=== PATIENT | male | born 1935 | race Caucasian/White ===

== ENCOUNTER 2016-09-26 04:15 | Emergency (ER) | payer MEDICARE ==
[~2016-09-26 04:15] MED LIST: ACET325 PO; CARD4TAB2 PO; COMMODE 3:1; DOCU1CAP39 PO; LASI20TA PO; LISI20 PO; NIFE1TAB85 PO; POLY1.4%O EACH EYE; PRAV10 PO; PROS5TAB2 PO; PROT40TA PO; TUB TRANSFER BENCH; WARF5 PO; WHEELCHAIR RENTAL RA
[2016-09-26 04:19] VITALS: BP 116/70; PULSE 66; RESP 16; TEMP 97.6; O2SAT 92
[2016-09-26] MEDS ORDERED: LISI-515 PO (04:49)
[2016-09-26] MEDS ORDERED: VITA10007 PO (04:49)
[2016-09-26] MEDS ORDERED: DOXA4TAB3 PO (04:49)
[2016-09-26] MEDS ORDERED: FISH500C (04:49)
[2016-09-26] MEDS ORDERED: MULT-142 PO (04:49)
[2016-09-26] MEDS ORDERED: FURO1TAB62 PO (04:49)
[2016-09-26] MEDS ORDERED: NIFE30TA61 PO (04:49)
[2016-09-26] MEDS ORDERED: PRAV10TA PO (04:49)
[2016-09-26] MEDS ORDERED: GABA300C5 PO (04:49)
[2016-09-26] MEDS ORDERED: ROBA750T PO (04:49)
[2016-09-26] MEDS ORDERED: PROS5TAB PO (04:49)
[2016-09-26] MEDS ORDERED: COUM5TAB PO (04:49)
[2016-09-26] MEDS ORDERED: ONDANSETRON ODT 4 MG TAB PO ONE (05:15)
[2016-09-26] MEDS ORDERED: HYDROmorphone HCL PF 1 MG/ML VIAL SQ ONE (05:15)
--- NOTE | 2016-09-26 05:15 | PD ---
HPI Chief Complaint: Pain: Acute or Chronic Time Seen by Provider: 04:25 Travel History International Travel<30 days: No Contact w/Intl Traveler<30days: No History of Present Illness HPI 81 Y/O male with history of A.Fib, CVA, HTN comes to the ED due to left hip pain that radiates to the thigh. He states that the pain started right around dinner time. He describes it as a super achy and stabbing pain of 10/10 severity. He took tylenol, hydrocodone and robaxin which minimally alleviate the pain. Patient reports to have a CVA last year which lead to weakness of right leg and arm. He has been using a walker and normally leans on the left side to compensate for the right hemiparesis. He thinks that is the main reason for his left hip and leg pain. He denies any trauma, swelling, redness of the area, SOB, or fever. He notes walking quit a bit further than normal yesterday with use of a cane only and the assistance of his . No fall occurred. PFSH Past Medical History Atrial Fibrillation: Yes Autoimmune Disease: No Anxiety: No Depression: No Heart Rhythm Problems: Yes (A-fib) Cancer: No Cardiovascular Problems: Yes High Cholesterol: Yes Chest Pain: No Congestive Heart Failure: Yes Cerebrovascular Accident: Yes (HEMORRHAGIC CVA 10/2015) Endocrine: No Genitourinary: No Hypertension: Yes Immune Disorder: No Musculoskeletal: Yes (L4-L5, L5-S1 FUSION) Neurologic: No Psychiatric: No Reproductive: No Respiratory: No Past Surgical History Abdominal Surgery: No AICD: No Arteriovenous Shunt: No Cardiac Surgery: No Ear Surgery: No Endocrine Surgery: No Eye Surgery: Yes Genitourinary Surgery: No Gynecologic Surgery: No Insulin Pump: No Joint Replacement: No Oral Surgery: Yes (parotid gland surgery on right) Pacemaker: No Thoracic Surgery: No Other Surgery: Yes (left thumb years ago) Social History Alcohol Use: No Tobacco Use: No Substance Use: No Allergies-Medications (Allergen,Severity, Reaction): Coded Allergies: Tetracyclines (Verified Allergy, Severe, Erythema Multiforme, 09/26/16) Reported Meds & Prescriptions Reported Meds & Active Scripts Active Prednisone 20 Mg Tab 40 Mg PO DAILY 4 Days Percocet (Oxycodone-Acetaminophen) 5-325 mg Tab 2 Tab PO Q6H PRN Reported Gabapentin 300 Mg Cap 300 Mg PO HS Robaxin (Methocarbamol) 750 Mg Tab 1,500 Mg PO BID Fish Oil (Kenton-3 Fatty Acids) 500 Mg Cap Vitamin C (Ascorbic Acid) 1,000 Mg Tab 1,000 Mg PO BID Multi Vitamin and Mineral (Multiple Vitamins W/ Minerals) 1 Tab Tab PO DAILY Lasix (Furosemide) 20 Mg Tab 10 Mg PO PRN PRN Proscar (Finasteride) 5 Mg Tab 5 Mg PO DAILY Do not crush. Nifedipine ER 24 HR (Nifedipine) 30 Mg Tab 30 Mg PO DAILY Lisinopril 20 Mg Tab 20 Mg PO DAILY Pravastatin 10 Mg Tab 10 Mg PO HS Doxazosin (Doxazosin Mesylate) 4 Mg Tab 4 Mg PO BID Coumadin (Warfarin) 5 Mg Tab 5 Mg PO DAILY Review of Systems Except as stated in HPI: all other systems reviewed are Neg General / Constitutional: No: Fever HENT: No: Neck Pain Cardiovascular: No: Chest Pain or Discomfort, Edema Respiratory: No: Shortness of Breath, Night Sweats Gastrointestinal: No: Nausea, Vomiting, Abdominal Pain Musculoskeletal: Positive: Weakness (right leg and arm weakness secondary to CVA last year), Pain (left hip and thigh pain ) Skin: No Rash, No Change in Pigmentation, No Lesions Neurologic: Positive: Weakness (right hip and thigh weakness secondary to CVA ) , No: Syncope Physical Exam Narrative GENERAL: 81 y/o male, well-developed, well-nourished, appear stated age, very pleasant, lying in bed in no acute distress SKIN: Warm and dry. HEAD: Atraumatic. Normocephalic. EYES: Pupils equal and round. No scleral icterus. No injection or drainage. ENT: No nasal bleeding or discharge. Mucous membranes pink and moist. NECK: Trachea midline. No JVD. CARDIOVASCULAR: Regular rate and rhythm. RESPIRATORY: No accessory muscle use. Clear to auscultation. Breath sounds equal bilaterally. GASTROINTESTINAL: Abdomen soft, non-tender, nondistended. Hepatic and splenic margins not palpable. MUSCULOSKELETAL: Extremities without clubbing, cyanosis, or edema. No obvious deformities. Right leg weakness. On LLE: pain on internal and external rotation of lower extremity, tenderness to palpation overlying greater trochanter. 2+ DP bilaterally. No asymmetry/suggest DVT either side. NEUROLOGICAL: Awake and alert. No obvious cranial nerve deficits. right lower extremity weakness. Normal speech. PSYCHIATRIC: Appropriate mood and affect; insight and judgment normal. Data Data Last Documented VS Vital Signs Date Time Temp Pulse Resp B/P Pulse Ox O2 Delivery O2 Flow Rate FiO2 09/26/16 04:30 66 16 09/26/16 04:19 97.6 116/[address] Pelvis W/O Iv Contrast (09/26/16 ) Hydromorphone Pf Inj (Dilaudid Pf Inj) (09/26/16 05:15) Ondansetron Odt (Zofran Odt) (09/26/16 05:15) MDM Medical Decision Making Medical Screen Exam Complete: Yes Emergency Medical Condition: Yes Differential Diagnosis 1. left hip fracture 2. Osteoarthritis of left hip 3. Sciatica 4. Hematoma of left hip, less likely Narrative Course Last Impressions Pelvis CT 09/26/16 0000 Signed Impressions: Service Date/Time: Monday, September 26, 2016 05:27 - CONCLUSION: 1. Mild right and moderate to severe left hip osteoarthritis. 2. Left hip joint effusion, nonspecific but most likely reactive. 3. No fracture or subluxation demonstrated. 4. Severe disc space narrowing in the visualized lower lumbar spine at L4/L5. 5. Nonspecific enlargement of the prostate. There are scattered diverticula of the sigmoid colon. Jakob Berg MD Case d/w ortho. OK for dc home with steroids and pain control. Rest. Follow up as needed. Pt reassured. Return precautions discussed. Diagnosis Primary Impression: Effusion of left hip Referrals: Primary Care Physician 2 days Additional Instructions: You have a choice when it comes to health care, and we are glad that you chose [facility]. Hopefully, we have met your expectations on today's visit. You are welcome to return to [facility] at any time, as we are committed to meeting the health care needs of our community. Med/Other Pt SpecificInfo: Prescription(s) given Scripts Prednisone 20 Mg Tab40 Mg PO DAILY 4 Days Ref 0 Prov:Aravind Coreas MD 09/26/16 Oxycodone-Acetaminophen (Percocet)5-325 mg Tab2 Tab PO Q6H PRN (PAIN SCALE 6 TO 10) #30 TAB Ref 0 Prov:Aravind Coreas MD 09/26/16 Disposition: 01 DISCHARGE HOME Condition: Stable JossAravind C. MD Sep 26, 2016 05:15
--- NOTE | 2016-09-26 05:51 | RADRPT ---
EXAM DATE/TIME: 09/26/2016 05:27 [facility] COMPARISON: No previous studies available for comparison. INDICATIONS : Left hip pain, possible fracture. ORAL CONTRAST: No oral contrast ingested. RADIATION DOSE: 17.51 CTDIvol (mGy) MEDICAL HISTORY : Hypertension. SURGICAL HISTORY : lumbar surgery ENCOUNTER: Initial ACUITY: 1 day PAIN SCALE: 8/10 LOCATION: Left pelvis hip TECHNIQUE: Volumetric scanning of the pelvis was performed. Using automated exposure control and adjustment of the mA and/or kV according to patient size, radiation dose was kept as low as reasonably achievable t o obtain optimal diagnostic quality images. FINDINGS: The bony pelvis is intact and has normal morphology. There is bilateral hip osteoarthritis, mild on t he right and moderate to severe on the left. Subchondral sclerosis and small subchondral cysts are se en of the left acetabular roof. There is a left hip joint effusion and probably a least mild osteoart hritis. No fracture or subluxation demonstrated. CT appearance of the bilateral hamstring origins and ischial tuberosities within normal limits. No acute abnormality seen in the visualized pelvic cavity. There is atherosclerosis of the abdominal aorta and iliac arteries. Enlarged prostate with calcification noted. There are scattered diverticula of the sigmoid colon without acute inflammatory changes. The appendix is normal. There is no free fl uid. CONCLUSION: 1. Mild right and moderate to severe left hip osteoarthritis. 2. Left hip joint effusion, nonspecific but most likely reactive. 3. No fracture or subluxation demonstrated. 4. Severe disc space narrowing in the visualized lower lumbar spine at L4/L5. 5. Nonspecific enlargement of the prostate. There are scattered diverticula of the sigmoid colon. Jakob Berg MD on September 26, 2016 at 5:46 Board Certified Radiologist. This report was verified electronically.
[2016-09-26] MEDS ORDERED: PERC5TAB12 PO (06:44)
[2016-09-26] MEDS ORDERED: PRED20 PO (06:44)
[2017-01-15] MEDS ORDERED: MEDR4PAK PO (11:59)
== END 2016-09-26 07:11 | disposition home or self-care (01) ==
LOC: NEPE 04:15
DX: M25.452 Effusion, left hip (principal); I48.91 Unspecified atrial fibrillation; I10 Essential (primary) hypertension; I69.351 Hemiplegia and hemiparesis following cerebral infarction affecting right dominant side; E78.00 Pure hypercholesterolemia, unspecified; Z86.79 Personal history of other diseases of the circulatory system; Z87.39 Personal history of other diseases of the musculoskeletal system and connective tissue
CPT/HCPCS: 72192; 96372; 99283; J1170

== ENCOUNTER 2017-02-19 15:51 | Inpatient (IN) | payer MEDICARE ==
[~2017-02-19] VITALS: Ht 182.9 cm; Wt 88.7 kg
[~2017-02-19 15:51] MED LIST changes: -ACET325 PO; -CARD4TAB2 PO; -COMMODE 3:1; +COUM5TAB PO; -DOCU1CAP39 PO; +DOXA4TAB3 PO; +FISH500C PO; +FURO1TAB62 PO; -LASI20TA PO; +LISI-515 PO; -LISI20 PO; +MEDR4PAK PO; +MULT-142 PO; -NIFE1TAB85 PO; +NIFE30TA61 PO; -POLY1.4%O EACH EYE; -PRAV10 PO; +PROS5TAB PO; -PROS5TAB2 PO; -PROT40TA PO; -TUB TRANSFER BENCH; -WARF5 PO; -WHEELCHAIR RENTAL RA
[2017-03-04] MEDS ORDERED: PRAV10TA PO ×2 (16:25)
[2017-03-04] MEDS ORDERED: ROBA750T PO ×2 (16:25)
[2017-03-04] MEDS ORDERED: VITA250T3 PO ×2 (16:25)
[2017-03-04] MEDS ORDERED: GABA100C4 PO ×2 (16:25)
--- NOTE | 2017-03-07 12:26 | MH ---
cc: NIA GARDUNO MD DATE OF ADMISSION 03/13/2017 ADMITTING DIAGNOSIS Osteoarthritis of the left hip, pain left hip, gait disturbance. HISTORY The patient is an 81-year-old white male who has experienced pain of his left hip of at least two years duration. He has undergone previous evaluation in the [place], [place] area where he was residing at that time and reports that the initial evaluation was completed with emphasis being oriented towards the lumbosacral spine. The patient was advised to proceed with epidural steroid injections that he did receive, but during this interval, he continued to note soreness generalized about his left hip. 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 During the course of his rehabilitation, he became progressively more symptomatic with pain about his left hip for which a CT scan noted moderate to severe osteoarthritis with associated joint effusion. A follow-up MRI scan of the left hip reported moderate to severe superior articular cartilage thinning with moderate sized osteophytes and a large joint effusion with diffuse synovitis. The patient was later seen by the undersigned physician in January of this year and at that time he reported ongoing pain about his left hip associated with limited endurance regarding all weightbearing activities. He was continuing to utilize a walker as an ambulatory aid and taking OxyContin for pain management. A review of his x-ray studies revealed significant degenerative changes with pronounced narrowing of the joint space and deformation of the femoral head. Findings and treatment options were reviewed with the patient at that time. The pros and cons of continuing with conservative management versus operative intervention that would involve a total hip arthroplasty were outlined in detail. Emphasis was made regarding the fact that the decision to proceed with surgery would be left entirely to the patient's discretion. The patient readily admitted that he felt he had progressed to that point in time where he was ready to proceed accordingly and in compliance with his wishes, he was scheduled for admission at this time in order that left total hip replacement be completed. PAST MEDICAL HISTORY Hospitalizations and surgeries have included: 1. Surgical repair of a left thumb injury possibly a gamekeeper's type injury. 2. Right mehnaz-parotidectomy 3. Lumbar laminectomy and fusion L5-S1 4. Tonsillectomy 5. Bilateral cataract excision with intraocular lens implants 6. Colonoscopy 7. Cystoscopy 8. Management and rehabilitation for history of stroke. The patient's medical illnesses include: 1. Hypertension 2. Atrial fibrillation 3. Benign prostatic hypertrophy MEDICATIONS His current medications: 1. Doxazosin 4 mg in the a.m. 8 mg in the p.m. 2. Lisinopril 20 mg daily 3. Nifedipine 30 mg daily 4. Fish oil daily 5. Pravastatin 10 mg daily 6. Coumadin 5 mg at bedtime 7. Finasteride 5 mg at bedtime 8. Multivitamin daily 9. Vitamin C twice daily 10. Robaxin 750 mg p.r.n. 11. Gabapentin 100-300 mg p.r.n. ALLERGIES The patient indicates a drug allergy to TETRACYCLINE WHICH HAS BEEN ASSOCIATED WITH ERYTHEMA MULTIFORME. REVIEW OF SYSTEMS He does wear glasses. Denies headache, seizure or syncope. No sinus congestion or epistaxis. Diminished auditory acuity which hearing aids have been utilized. No tinnitus. No bleeding gums or dysphagia. Denies cough, shortness of breath, upper respiratory infection, pneumonia or tuberculosis. No angina. He is medically managed for atrial fibrillation and hypertension. Appetite is good. Bowel movements are regular. No hepatitis, gallbladder disease or ulcers. There is a positive history of hemorrhoids. No urinary tract infection. He has previous kidney stones with spontaneous passage. Benign prostatic hypertrophy. No fractures. No psychiatric illness. His remaining review of systems is unremarkable and noncontributory. FAMILY HISTORY 32 years, 69 years of age in good health. One son and two daughters indicated to be in good health. Family history is positive for diabetes, heart disease, lung disease and cancer of undetermined etiology. 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 He completed a medical school education. Denies active use of tobacco for at least 30 years, but has been a one-pack per day user for 30 years prior to that time. Ethanol consumption on a limited and social basis. PHYSICAL EXAMINATION Height 6 feet, weight 187 pounds. GENERAL: An alert, oriented and responsive 81-year-old white male who sits quietly upon examination table with no obvious distress. HEAD, EARS, EYES, NOSE AND THROAT: Pupils are equally round and reactive to light. Extraocular movements full. Sclerae clear. External nares clear. External auditory canals clear. Dental intact. Mucous membranes pink and moist. Pharynx clear. NECK: Supple, satisfactory range of motion with mild discomfort at the extremes of mobility indicated to be chronic in nature. Carotid pulse bilaterally. Trachea midline. Thyroid without enlargement. LUNGS: Clear to auscultation and percussion. No CVA tenderness. No discomfort throughout the dorsal lumbar spine. HEART: Regular irregular rhythm without murmur or gallop. ABDOMEN: Soft, nontender. Bowel sounds present. RECTAL: Per her primary care physician. EXTREMITIES: Left hip, there is no localizing tenderness to palpation. There is limited mobility of the hip joint being most pronounced with internal rotation and abduction maneuvering and pain at the extreme of motion. No sensation of crepitation or instability. Straight-leg raising negative 80 degrees. Jani sign is positive. Distal sensory grossly intact. Mild antalgic gait with walker support. An AFO about the right lower extremity secondary to a history of a right foot drop as related to the patient's history of stroke. NEUROLOGIC: Cranial nerves II-XII grossly intact. IMPRESSION Osteoarthritis left hip, pain left hip, gait disturbance. PLAN Left total hip arthroplasty. The nature of the planned surgical procedure, the potential complications and risks associated, the expectations of surgery and the consent form were thoroughly reviewed with the patient in the presence of his prior to admission to the hospital. Dr. Xiong has indicated his full understanding regarding all of the above and given consent to proceed with treatment as outlined. Medical evaluation and clearance for surgery will be completed by his primary care physician Dr. Jakob Guillermo. MD EBONI Perez/PACO /12:02 PM /12:16 PM
[2017-03-13] MEDS ORDERED: LACTATED RINGER'S 1000 ML INJ 1,000 ML ONE (06:15)
[2017-03-13] MEDS ORDERED: ceFAZolin 2 GM PREMIX 50 ML ONE (06:15)
[2017-03-13 06:23] VITALS: BP 135/78; PULSE 64; RESP 20; TEMP 98; O2SAT 96
[2017-03-13] MEDS ORDERED: INSULIN HUMAN REGULAR 1,000 UNITS/10 ML VIAL SQ PRN (06:30)
[2017-03-13] MEDS ORDERED: POVIDONE IODINE 5% (ANTISEPSIS KIT) 4 APPLICATIONS EACH NARE PRN (06:30)
[2017-03-13] MEDS ORDERED: LACTATED RINGER'S 1000 ML IV PRN (06:30)
[2017-03-13] MEDS ORDERED: ceFAZolin 2 GM PREMIX 50 ML IV SCH (06:30)
[2017-03-13] MEDS ORDERED: CHLORHEXIDINE GLUCONATE 2 % 1 PACK (2 CLOTHS) TOPICAL PRN (06:30)
[2017-03-13] MEDS ORDERED: SODIUM CHLORID 0.9% 500 ML IV PRN (06:30)
[2017-03-13] MEDS ORDERED: POVIDONE IODINE 7.5% SCRUB 118 ML BOTTLE TOPICAL SCH (06:30)
[2017-03-13] MEDS ORDERED: TRANEXAMIC ACID 1 GM PRIOR TO PROCEDURE IV SCH ×2 (06:30)
[2017-03-13] MEDS ORDERED: METOPROLOL TARTRATE 25 MG TAB PO PRN (06:30)
[2017-03-13] MEDS ORDERED: ACETAMINOPHEN 1000 MG/100 ML VIAL IV ONE (07:08)
[2017-03-13] MEDS ORDERED: ceFAZolin INJ 1,000 MG VIAL ONE ×2 (07:09→13:10)
[2017-03-13] MEDS ORDERED: VASOPRESSIN INJ 20 UNITS/ML VIAL ONE (07:51)
[2017-03-13] MEDS ORDERED: TRANEXAMIC ACID 1 GM POST-OP IV SCH ×2 (09:30)
[2017-03-13] MEDS ORDERED: DO NOT ADM ANY ANTICOAGULANT DRUGS PRN (10:06)
[2017-03-13] MEDS ORDERED: fentaNYL CITRATE 250 MCG/5 ML AMP ONE (10:14)
[2017-03-13] MEDS ORDERED: MIDAZOLAM HCL 2 MG/2 ML VIAL ONE (10:14)
--- NOTE | 2017-03-13 10:45 | MP ---
cc: NIA LONG DATE OF SURGERY: 03/13/2017 PREOPERATIVE DIAGNOSIS Osteoarthritis of the left hip, pain left hip and gait disturbance. POSTOPERATIVE DIAGNOSIS Osteoarthritis of the left hip, pain left hip and gait disturbance. PROCEDURE Left total hip arthroplasty. SURGEON Dr. Long. ANESTHESIA General endotracheal. INDICATIONS An 81-year-old white male with left hip pain of 2 years duration. He had undergone previous evaluation in the [place], [place] area where he was residing at that time and reports that his initial treatment was oriented towards his lumbosacral spine for which he was advised to proceed with epidural steroid injections that he did receive but during this interval he continued to note soreness about the left hip. 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 During the course of his rehabilitation he became progressively more symptomatic with pain about the left hip for which a CT scan noted a moderate to severe osteoarthritis associated with a joint effusion. A followup MRI scan of the left hip reported moderate to severe superior articular cartilage thinning with moderate sized osteophytes and a large joint effusion with diffuse synovitis. The patient was later seen by the undersigned physician in January of this year and at that time he reported ongoing pain about his left hip associated with limited endurance regarding all weightbearing activities. He was continuing to utilize a walker as an ambulatory aid and taking OxyContin for pain management. A review of his x-ray studies revealed significant degenerative changes with pronounced narrowing of the joint space and deformation of the femoral head. Findings and treatment options were reviewed. The pros and cons of continuing with conservative management versus operative intervention involving total hip arthroplasty were outlined in detail. Emphasis was made regarding the fact that the decision to proceed with surgery would be left entirely to the patient's discretion. The patient readily admitted that he felt he had progressed to that point in time when he was ready to proceed in this direction and in compliance with his wishes he was scheduled for admission at this time in order that left total hip replacement be completed. FORMAT Following induction of satisfactory general anesthesia by endotracheal intubation as completed per the Department of Anesthesia, the patient was positioned upon the operating table in a right lateral decubitus fashion. The left hip and lower extremity proper were isolated with a U drape, thereafter being prepped with Betadine solution and draped into a sterile field in the routine manner. Prior to initiation of the actual procedure the standard time-out protocol was completed. All parameters were appropriately addressed and confirmed by operating room personnel. A standard posterolateral approach to the hip was initiated through a sharp skin incision and developed to underlying subcutaneous tissue with hemostasis maintained by electrocautery. By deepening dissection the fascia overlying the gluteus musculature was exposed and sharply incised to the limits of the incision. The underlying gluteus fibers were divided with the Bovie on cutting current. Progressive dissection facilitated exposure of the short external rotator structures. The piriformis tendon was utilized in anatomical landmark and division of these structures was completed in a superior to inferior orientation and reflected medially exposing the posterior capsule. The sciatic nerve was protected. An L-shaped capsulotomy was accomplished which a posterior dislocation of the femoral head was completed. Examination revealed severe degenerative changes with significant erosion of articular cartilage, hypertrophic bony reaction around the margins of the femoral head and reactive synovium. The femoral template was positioned for alignment orientation. The neck was scored and thereafter divided with power saw. The amputated segment being passed to the back table as surgical specimen. Attention was initially directed to the proximal femur. Cancellous bone was harvested. The tapered reamer was inserted for alignment orientation. Sequential rasping and broaching was accomplished from 7-13 mm with the calcar shruthi being utilized at 13 mm stage. The 13 mm stem was determined to be a favorable fit. Trial component being removed, attention was redirected to the acetabulum. The labrum and reactive soft tissue were sharply excised. Progressive reaming was accomplished from 50-60 mm at 2 mm increments. The 60 mm trial shell was positioned and determined to be satisfactory. With all trial components being removed the wound was copiously irrigated with pulsating antibiotic solution, hemostasis maintained by electrocautery. Harvested cancellous bone was digitally impacted into the depths of the acetabulum and thereafter a 60 mm Continuum acetabular trabecular metal shell was firmly seated in approximately 45 degrees inclination to the horizontal and slight anteversion. A single 25 mm 6.5 cancellous screw was inserted superiorly to augment the fixation. The permanent high wall acetabular liner was affixed to the acetabular shell. Attention was redirected to the proximal femur. The 13 mm trial femoral broach was repositioned and a trial reduction followed utilizing a 36 mm modular head with both -6 and -3 mm neck length trialed, the -3 sizing was determined to be the more favorable fit. The hip was flexed to 90 degrees and internally rotated to 45 degrees with stability maintained. An open dislocation was completed, all trial femoral components removed, the canal thoroughly irrigated and dried and thereafter a 13 mm standard echo bimetric femoral stem was firmly seated to which a 36 mm ceramic head with -3 mm neck length adapter attached, open reduction completed and a repeat range of motion again noted stability as previously described. Final irrigation was accomplished with hemostasis maintained. The posterior capsule was repaired with 0 Vicryl suture. Pyriformis tendon and short external rotator structures were reapproximated in a similar manner. The fascia of the gluteus musculature was reapproximated with a running 0 Vicryl suture. Remaining portion of the wound was closed in layers in the routine manner. Skin margins being reapproximated with a running subcuticular 3-0 Vicryl suture over which Steri-Strips were applied. Xeroform gauze and a bulky dry sterile dressing were placed. The patient was repositioned into a supine orientation where an abduction splint was attached. Anesthesia was discontinued. He was thereafter transferred to a hospital bed and returned to the recovery room in satisfactory condition having tolerated his operative procedure well. Estimated blood loss was approximately 350 ccs as determined per anesthesia. Femoral implants were of the [employer] manufacture, acetabular implants of [employer] vehicle inspector. MD EBONI Perez/TAOL /10:05 AM /10:16 AM
[2017-03-13] MEDS ORDERED: *morphine SULFATE 8 MG/ML PERIprocedure ONLY ONE ×3 (10:46→11:18)
[2017-03-13] MEDS ORDERED: *HYDROmorphone PF 1 MG VIAL PERIprocedural Use ONLY ONE (11:45)
[2017-03-13] MEDS ORDERED: ACETAMINOPHEN 325 MG TAB PO PRN (12:45)
[2017-03-13] MEDS ORDERED: Post-op Orders (for Pharmacy) MISC XX ONE (12:45)
[2017-03-13] MEDS ORDERED: TRANEXAMIC ACID INJ 1,000 MG in SODIUM CHLORIDE 0.9% INJ 100 ML IV SCH (12:45)
[2017-03-13] MEDS ORDERED: SODIUM CHLORIDE 0.9% FLUSH 5 ML FLUSH IVF PRN (12:45)
[2017-03-13] MEDS ORDERED: ACETAMINOPHEN/HYDROcodone 325 MG/5 MG TAB PO PRN (12:45)
[2017-03-13] MEDS ORDERED: diphenhydrAMINE HCL 25 MG CAP PO PRN (12:45)
[2017-03-13] MEDS ORDERED: MISCELLANEOUS PHARMACY INFORMATION XX ONE (12:45)
[2017-03-13] MEDS ORDERED: ONDANSETRON HCL 4 MG/2 ML VIAL IVP PRN (12:45)
[2017-03-13] MEDS ORDERED: DOCUSATE SODIUM 100 MG CAP PO PRN (12:45)
[2017-03-13] MEDS ORDERED: NALOXONE HCL 0.4 MG/ML AMP IV PRN (12:45)
[2017-03-13] MEDS: DEXT 5%-NACL 0.45% 1000 ML INJ 1,000 ML IV SCH ×2 (13:00→21:00)
[2017-03-13] MEDS ORDERED: SODIUM CHLORIDE 0.9% INJ 100 ML ONE (13:10)
[2017-03-13] MEDS: MORPHINE SULFATE 30 MG/30 ML PCA IV SCH (13:22)
--- NOTE | 2017-03-13 13:37 | RADRPT ---
EXAM DATE/TIME: 03/13/2017 13:24 [facility] COMPARISON: No previous studies available for comparison. INDICATIONS : Post op, left hip replacement. MEDICAL HISTORY : None. SURGICAL HISTORY : None. ENCOUNTER: Initial ACUITY: 1 day PAIN SCORE: 0/10 LOCATION: Left hip FINDINGS: Examination of the hip demonstrates no evidence of fracture or dislocation. Left hip arthroplasty wit hout loosening or fracture. Postsurgical changes. CONCLUSION: Left hip arthroplasty. Ashish Drummond MD on March 13, 2017 at 13:35 Board Certified Radiologist. This report was verified electronically.
[2017-03-13] MEDS ORDERED: NEOSTIGMINE 3 MG/3 ML SYR IV ONE (13:48)
[2017-03-13] MEDS ORDERED: PROPOFOL 200 MG/20 ML AMP IV ONE (13:48)
[2017-03-13] MEDS ORDERED: ePHEDrine/NS 25 MG/5 ML SYR IV ONE (13:48)
[2017-03-13] MEDS ORDERED: LACTATED RINGER'S 1000 ML INJ 1,000 ML IV ONE (13:49)
[2017-03-13] MEDS ORDERED: PHENYLEPH/NS 1000 MCG/10 ML SYR IV ONE (13:49)
[2017-03-13] MEDS ORDERED: ONDANSETRON HCL 4 MG/2 ML VIAL IV PUSH ONE (13:49)
[2017-03-13 14:10] VITALS: BP 121/73; PULSE 79; RESP 17; TEMP 96.3; O2SAT 93
[2017-03-13] MEDS: PCA - TOTAL MG MORPHINE DELIVERED PER SHIFT SCH ×2 (15:47→22:00)
[2017-03-13] MEDS ORDERED: WARFARIN SOD 5 MG TAB PO SCH (16:00)
--- NOTE | 2017-03-13 16:03 | PD.CONS ---
HPI Service [facility] Hospitalists Consult Requested By Dr. Long Reason for Consult Medical management. Primary Care Physician Jakob Guillermo MD Diagnoses: History of Present Illness Written by Renea Zamora, acting as scribe for Dr. Machuca on 03/13/17 at 16:17. Mr. Xiong is an 81-year-old male patient with a known medical history of hemorrhagic thalamic CVA, hypertension and atrial fibrillation who underwent a left total hip arthroplasty by Dr. Long today 03/12/17. Hospitalist team has been consulted for medical management. Patient seen and examined in hospital room, at bedside. Patient supposedly had been experiencing left hip pain for several years undergoing steroid injections and outpatient PT. Despite these efforts patient complaint of continued pain. Per patient, he sustained a left thalamic hemorrhagic bleed in October 2015 leaving him with residual right sided weakness, gait disturbance, some speech deficits, intermittent impaired memory recall and right leg fatigue and deconditioning. Since that time patient received rehabilitation with continued pain in his left hip leading to a left total hip arthroplasty today. Patient denies any recent illness including fever , chills, cough, shortness of breath, abdominal pain, nausea, vomiting, diarrhea or dysuria. Review of Systems Musculoskeletal: COMPLAINS OF: Joint pain (hip pain) Except as stated in HPI: all other systems reviewed are Neg Past Family Social History Allergies: Coded Allergies: Tetracyclines (Verified Allergy, Severe, Erythema Multiforme, 03/04/17) Past Medical History History of CVA 2016 Hemorrhagic thalamic bleed Hypertension Atrial Fibrillation on Coumadin Benign prostatic hypertrophy Past Surgical History Left thumb surgery Lumbar laminectomy and L4/L5/S1 fusion Tonsillectomy Right mehnaz-parotidectomy Reported Medications Active Reported Gabapentin 100 Mg Cap 100 Mg PO HS PRN pt states he may take up to 300mg per night depending on pain Robaxin (Methocarbamol) 750 Mg Tab 750 Mg PO Q4H PRN Vitamin C (Ascorbic Acid) 250 Mg Tab 1,000 Mg PO BID Pravastatin 10 Mg Tab 10 Mg PO HS Fish Oil ([place]-3 Fatty Acids) 500 Mg Cap 3 Cap PO DAILY Multi Vitamin and Mineral (Multiple Vitamins W/ Minerals) 1 Tab Tab 1 Tab PO HS Proscar (Finasteride) 5 Mg Tab 5 Mg PO HS Do not crush. Nifedipine ER 24 HR (Nifedipine) 30 Mg Tab 30 Mg PO DAILY Lisinopril 20 Mg Tab 20 Mg PO DAILY Doxazosin (Doxazosin Mesylate) 4 Mg Tab 4 Mg PO BID Coumadin (Warfarin) 5 Mg Tab 5 Mg PO HS Active Ordered Medications Current Medications Medications (Trade) Dose Ordered Sig/Lesli Route Start Time Stop Time Status Last Admin Povidone Iodine 1 applic 1 applic ONCE TOPICAL 03/13/17 06:30 03/16/17 06:29 03/13/17 06:31 Tranexamic Acid 1000 mg/Sodium Chloride 110 ml @ 220 mls/hr ONCE IV 03/13/17 06:30 03/14/17 06:29 03/13/17 06:30 Tranexamic Acid 1000 mg/Sodium Chloride 110 ml @ 220 mls/hr ONCE IV 03/13/17 09:30 03/14/17 09:29 03/13/17 10:41 (D5W-1/2 NS 1000 ml Inj) 1,000 ml @ 125 mls/hr Q8H IV 03/13/17 13:00 03/13/17 13:00 (NS Flush) 2 ml UNSCH PRN IVF 03/13/17 12:45 IV Flush 2 ml 2 ml BID IVF 03/13/17 21:00 (Ancef Inj/NS Inj) 100 ml @ 200 mls/hr Q6H IV 03/13/17 13:00 03/14/17 01:29 03/13/17 13:00 (Acme 5-325 Mg) 1 tab Q4H PRN PO 03/13/17 12:45 (Acme 5-325 Mg) 2 tab Q4H PRN PO 03/13/17 12:45 (Tylenol) 650 mg Q6H PRN PO 03/13/17 12:45 (Zofran Inj) 4 mg Q6H PRN IVP 03/13/17 12:45 (Colace) 100 mg BID PRN PO 03/13/17 12:45 (Ambien) 5 mg HS PRN PO 03/13/17 21:00 (Narcan Inj) 0.4 mg UNSCH PRN IV 03/13/17 12:45 03/15/17 12:44 (Benadryl) 25 mg Q6H PRN PO 03/13/17 12:45 03/15/17 12:44 (Morphine 1 Mg/ ml MACHINE SOLE LEVELER) 30 mg UNSCH IV 03/13/17 12:45 03/15/17 12:44 03/13/17 13:22 MACHINE SOLE LEVELER Dosage Infused (Pha) 1 Q8HR .XX 03/13/17 14:00 03/15/17 13:59 03/13/17 15:47 (Coumadin) 5 mg DAILY@1600 PO 03/13/17 16:00 Future Hold Miscellaneous Information ALL NURSING DEPARTME... UNSCH PRN .XX 03/13/17 10:06 03/14/17 10:05 Family History Paternal medical history significant for acute UT, at the age of 55. Maternal medical history significant for lung cancer. Social History Patient is . Denies any current tobacco use, quit smoking in 1981. Admits to occasional alcohol use. Denies any illicit drug use. Physical Exam Vital Signs Vital Signs Date Time Temp Pulse Resp B/P Pulse Ox O2 Delivery O2 Flow Rate FiO2 03/13/17 15:47 9 03/13/17 14:10 96.3 79 17 121/73 93 03/13/17 13:25 75 16 121/69 99 Nasal Cannula 3 03/13/17 13:22 14 03/13/17 11:00 66 16 101/59 99 Nasal Cannula 3 03/13/17 10:45 58 16 95/53 98 Nasal Cannula 3 03/13/17 10:30 61 16 88/51 97 Nasal Cannula 3 03/13/17 10:15 75 16 84/53 95 Nasal Cannula 3 03/13/17 10:05 97.5 85 16 88/55 95 Nasal Cannula 3 03/13/17 06:23 98.0 64 20 135/78 96 Physical Exam GENERAL: Well-nourished, well-developed male patient, in no apparent distress. SKIN: No rashes, ecchymoses or lesions.Warm and dry. HEAD: Atraumatic. Normocephalic. No temporal or scalp tenderness. Pupils equal round and reactive. Extraocular motions intact. No scleral icterus. Nose without bleeding. Airway patent. NECK: Trachea midline. No JVD. Supple. CARDIOVASCULAR: Regular rate and rhythm. No murmur appreciated. RESPIRATORY: Clear to auscultation. Breath sounds equal bilaterally. No wheezes , rales, or rhonchi. GASTROINTESTINAL: Abdomen soft, non-tender, nondistended. No guarding. MUSCULOSKELETAL: Extremities without clubbing, cyanosis, or edema. No joint tenderness, effusion. Hip dressing clean, dry, intact. NEUROLOGICAL: Awake and alert. Cranial nerves II through XII intact. Motor and sensory grossly within normal limits. Five out of 5 muscle strength in all muscle groups. Normal speech. Laboratory Laboratory Tests Test 03/13/17 06:29 Blood Type A POSITIVE Antibody Screen NEGATIVE Imaging Last Impressions Hip X-Ray 03/13/17 1238 Signed Impressions: Service Date/Time: Monday, March 13, 2017 13:24 - CONCLUSION: Left hip arthroplasty. Ashish Drummond MD Assessment and Plan Assessment and Plan Mr. Xiong is an 81-year-old male patient with a known medical history of hemorrhagic thalamic CVA, hypertension and atrial fibrillation who underwent a left total hip arthroplasty by Dr. Long today 03/12/17. Hospitalist team has been consulted for medical management. Status post left total hip arthroplasty. - Post op day 0, 03/13/17 - Dressing changes per ortho recommendations. - Monitor for constipation. Colace 100 mg PO BID PRN. - Encourage PO intake. Continue regular diet. - Control pain. Morphine IV MACHINE SOLE LEVELER. Acme 5/325 mg PO q4h PRN per pain scale. - Monitor for nausea, Zofran PRN. Atrial fibrillation, chronic: Controlled at this time. Anticoagulation recommendations per ortho surgeon. Hypertension, chronic: Controlled at this time. Monitor BP. DVT prophylaxis: SCDs. Chemical prophylaxis per ortho recommendations. Thank you for this consultation. Will follow with you. This note was transcribed by scribe [Renea Zamora]. I, Dr. Aravind Machuca personally performed the history, physical exam, and medical decision making; and confirmed the accuracy of the information in the transcribed note. Authenticated by Dr. Aravind Machuca on 03/13/17 at 16:25. Renea Zamora Mar 13, 2017 16:03 Aravind Machuca MD Mar 13, 2017 16:25
[2017-03-13] MEDS ORDERED: GABAPENTIN 100 MG CAP PO PRN (16:30)
[2017-03-13 18:12] LABS: PROTHROMBIN TIME - PATIENT 11.3 SEC (9.8-11.6)
[2017-03-13] MEDS ORDERED: METHOCARBAMOL 500 MG TAB PO PRN (19:00)
[2017-03-13 20:30] VITALS: BP 130/75; PULSE 92; RESP 17; TEMP 98.7; O2SAT 95
[2017-03-13] MEDS: DOXAZOSIN MESYLATE 4 MG TAB PO SCH (20:50)
[2017-03-13] MEDS: MULTIVITAMINS/MINERALS THERAPEUTIC TAB PO SCH (20:51)
[2017-03-13] MEDS: FINASTERIDE 5 MG TAB PO SCH (20:51)
[2017-03-13] MEDS: PRAVASTATIN SOD 10 MG TAB PO SCH (20:51)
[2017-03-13] MEDS: ASCORBIC ACID 500 MG TAB PO SCH (20:52)
[2017-03-13] MEDS: SODIUM CHLORIDE 0.9% FLUSH 5 ML FLUSH IVF SCH (20:52)
[2017-03-13] MEDS ORDERED: ZOLPIDEM TARTRATE 5 MG TAB PO PRN (21:00)
[2017-03-14] VITALS (7 sets, daily range): BP systolic 100–125; BP diastolic 55–67; PULSE 68–93; RESP 17–18; TEMP 96.9–99.6; O2SAT 92–97
[2017-03-14] MEDS: DEXT 5%-NACL 0.45% 1000 ML INJ 1,000 ML IV SCH ×3 (05:58→20:44)
[2017-03-14] MEDS: PCA - TOTAL MG MORPHINE DELIVERED PER SHIFT SCH ×2 (06:00→13:21)
[2017-03-14] MEDS ORDERED: WARFARIN SOD 5 MG TAB PO ONE (06:00)
[2017-03-14 06:23] LABS: HEMATOCRIT 31.2 % (39.0-51.0); MEAN CELL VOLUME 87.5 FL (80.0-100.0); MEAN CORPUSCULAR HEMOGLOBIN 29.4 PG (27.0-34.0); MEAN CORPUSCULAR HGB CONC 33.6 % (32.0-36.0); PLATELET COUNT 116 TH/MM3 (150-450); RED BLOOD COUNT 3.57 MIL/MM3 (4.50-5.90); RED CELL DISTRIBUTION WIDTH 15.3 % (11.6-17.2); REVIEW FLAG FINAL; WHITE BLOOD COUNT 5.9 TH/MM3 (4.0-11.0)
[2017-03-14 06:42] LABS: INTERNATIONAL NORMALIZED RATIO 1.1 RATIO
[2017-03-14 06:50] LABS: BICARBONATE 25.2 MEQ/L (21.0-32.0); POTASSIUM 4.2 MEQ/L (3.5-5.1)
[2017-03-14] MEDS ORDERED: HYDR-3516 PO (06:50)
--- NOTE | 2017-03-14 06:52 | HHI.FF ---
Face to Face Verification Diagnosis: (1) Degenerative joint disease (DJD) of hip Physical Therapy Gait training Hip: Total hip, Protocol: Left, Abduction pillow while in bed, Progress to weight bearing Left LE Weight Bearing: WB as tolerated Left LE Range of Motion: Active ROM Nursing Dressing Changes: Daily dressing change I have seen patient Artie Xiong on 03/14/17. My clinical findings support the need for the requested home health care services because: Limited ability to care for self High risk of falls I certify that my clinical findings support that this patient is homebound because: Post-op weakness Unsteady gait/balance Unsafe to leave home unassisted Rakesh Long MD Mar 14, 2017 06:52
[2017-03-14] MEDS ORDERED: WALKER WHEELS/F1 MIS (06:54)
[2017-03-14] MEDS ORDERED: COMMODE 3-IN-11 MIS (06:54)
[2017-03-14] MEDS: DOXAZOSIN MESYLATE 4 MG TAB PO SCH ×2 (08:25→20:42)
[2017-03-14] MEDS: ASCORBIC ACID 500 MG TAB PO SCH ×2 (08:25→20:42)
[2017-03-14] MEDS: NIFEdipine 30 MG SUSTAINED RELEASE TAB PO SCH (08:26)
[2017-03-14] MEDS: LISINOPRIL 20 MG TAB PO SCH (08:26)
[2017-03-14] MEDS: SODIUM CHLORIDE 0.9% FLUSH 5 ML FLUSH IVF SCH ×2 (08:26→20:44)
[2017-03-14] MEDS ORDERED: WARFARIN SOD 5 MG TAB PO SCH ×2 (09:00→16:00)
[2017-03-14] MEDS ORDERED: OMEGA PO SCH (09:00)
[2017-03-14] MEDS: MORPHINE SULFATE 30 MG/30 ML PCA IV SCH (10:55)
--- NOTE | 2017-03-14 14:27 | HHI.PR ---
Subjective Remarks Follow up left total hip arthroplasty. Patient seen and examined, and OT in room. Patient awake and alert, oriented x person, place and time. Follows all commands. States pain is well controlled. Denies any new acute complaints overnight. Tolerating PO intake. No BM as of yet. Objective Vitals Vital Signs Date Time Temp Pulse Resp B/P Pulse Ox O2 Delivery O2 Flow Rate FiO2 03/14/17 12:00 96.9 74 18 100/61 96 03/14/17 10:11 92 03/14/17 07:48 98.9 68 18 110/55 92 03/14/17 04:21 21 03/14/17 04:06 99.0 75 17 111/56 96 03/14/17 00:24 97.1 86 17 106/60 97 03/13/17 20:30 98.7 92 17 130/75 95 03/13/17 15:47 9 I/O 03/13/17 03/13/17 03/13/17 03/14/17 03/14/17 03/14/17 07:00 15:00 23:00 07:00 15:00 23:00 Intake Total 1960 ml 1045 ml 1304 ml Output Total 570 ml 150 ml 375 ml Balance 1390 ml 895 ml 929 ml Intake Oral 110 ml 240 ml 120 ml IV Total 350 ml 805 ml 1184 ml Other 1500 ml Output Urine Total 220 ml 150 ml 375 ml Estimated Blood Loss 350 ml Other 0 ml Bladder Scan Volume Amount 104 ml # Voids 1 # Bowel Movements 0 0 Result Diagram: 03/14/17 0554 03/14/17 0554 Imaging Last Impressions Hip X-Ray 03/13/17 1238 Signed Impressions: Service Date/Time: Monday, March 13, 2017 13:24 - CONCLUSION: Left hip arthroplasty. Ashish Drummond MD Objective Remarks GENERAL: Well-nourished, well-developed male patient, in no apparent distress. SKIN: No rashes, ecchymoses or lesions.Warm and dry. HEAD: Atraumatic. Normocephalic. No temporal or scalp tenderness. Pupils equal round and reactive. Extraocular motions intact. No scleral icterus. Nose without bleeding. Airway patent. NECK: Trachea midline. No JVD. Supple. CARDIOVASCULAR: Regular rate and rhythm. No murmur appreciated. RESPIRATORY: Clear to auscultation. Breath sounds equal bilaterally. No wheezes , rales, or rhonchi. GASTROINTESTINAL: Abdomen soft, non-tender, nondistended. No guarding. MUSCULOSKELETAL: Extremities without clubbing, cyanosis, or edema. No joint tenderness, effusion. Hip dressing clean, dry, intact. NEUROLOGICAL: Awake and alert. Cranial nerves II through XII intact. Motor and sensory grossly within normal limits. Five out of 5 muscle strength in all muscle groups. Normal speech. A/P Assessment and Plan Mr. Xiong is an 81-year-old male patient with a known medical history of hemorrhagic thalamic CVA, hypertension and atrial fibrillation who underwent a left total hip arthroplasty by Dr. Long today 03/12/17. Hospitalist team has been consulted for medical management. Status post left total hip arthroplasty. - Post op day 1, 03/13/17 - Dressing changes per ortho recommendations. - No BM as of yet. Monitor for constipation. Colace 100 mg PO BID PRN. - Tolerating PO intake. Encourage PO intake. Continue regular diet. - Control pain. 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 Continue [place] 5/325 mg PO q4h PRN per pain scale. - Monitor for nausea, Zofran PRN. Atrial fibrillation, chronic: Controlled at this time. Coumadin. Hypertension, chronic: Controlled at this time. Monitor BP. Dyslipidemia, chronic: Continue home pravastatin 10 mg PO HS. DVT prophylaxis: SCDs. Continue Coumadin 5 mg PO. Renea Zamora Mar 14, 2017 14:27
[2017-03-14] MEDS: MULTIVITAMINS/MINERALS THERAPEUTIC TAB PO SCH (20:42)
[2017-03-14] MEDS: PRAVASTATIN SOD 10 MG TAB PO SCH (20:43)
[2017-03-14] MEDS: FINASTERIDE 5 MG TAB PO SCH (20:43)
[2017-03-14] MEDS: ACETAMINOPHEN/HYDROcodone 325 MG/5 MG TAB PO PRN (20:43)
[2017-03-15 00:20] VITALS: BP 104/61; PULSE 81; RESP 18; TEMP 97.9; O2SAT 96
[2017-03-15 04:45] VITALS: BP 106/61; PULSE 75; RESP 18; TEMP 97.1; O2SAT 97
[2017-03-15] MEDS: DEXT 5%-NACL 0.45% 1000 ML INJ 1,000 ML IV SCH (05:19)
[2017-03-15 07:02] LABS: HEMATOCRIT 28.5 % (39.0-51.0)
[2017-03-15 07:10] LABS: REVIEW FLAG FINAL
[2017-03-15 07:12] LABS: INTERNATIONAL NORMALIZED RATIO 1.3 RATIO
[2017-03-15 07:47] VITALS: BP 118/65; PULSE 84; RESP 18; TEMP 98.8; O2SAT 98
[2017-03-15 07:50] VITALS: BP 118/65; PULSE 84; RESP 18; TEMP 98.8; O2SAT 98
[2017-03-15] MEDS: SODIUM CHLORIDE 0.9% FLUSH 5 ML FLUSH IVF SCH (09:00)
[2017-03-15] MEDS: DOXAZOSIN MESYLATE 4 MG TAB PO SCH (09:00)
[2017-03-15] MEDS: LISINOPRIL 20 MG TAB PO SCH (09:00)
[2017-03-15] MEDS: NIFEdipine 30 MG SUSTAINED RELEASE TAB PO SCH (09:00)
[2017-03-15] MEDS: ACETAMINOPHEN/HYDROcodone 325 MG/5 MG TAB PO PRN (09:43)
[2017-03-15] MEDS: ASCORBIC ACID 500 MG TAB PO SCH (09:44)
== END 2017-03-15 11:38 | DRG 470 ==
LOC: HSDI 03-13 05:28 → N06A 03-13 14:02
PROVIDERS: ADMIT Orthopaedic Surgery; ATTEND Orthopaedic Surgery
PROC: 0SRB04A Replacement of Left Hip Joint with Ceramic on Polyethylene Synthetic Substitute, Uncemented, Open Approach (ICD-10-PCS; principal; 2017-03-13 07:18)
DX: M16.12 Unilateral primary osteoarthritis, left hip (principal); I48.2 Chronic atrial fibrillation; I69.198 Other sequelae of nontraumatic intracerebral hemorrhage; I10 Essential (primary) hypertension; M21.371 Foot drop, right foot; R26.9 Unspecified abnormalities of gait and mobility; Z98.1 Arthrodesis status; N40.0 Benign prostatic hyperplasia without lower urinary tract symptoms; Z79.01 Long term (current) use of anticoagulants; Z88.1 Allergy status to other antibiotic agents; E78.5 Hyperlipidemia, unspecified; Z87.891 Personal history of nicotine dependence
CPT/HCPCS: 73501; 80048; 85014; 85018; 85027; 85610; 86850; 86900; 86901; 88304; 88305; 88311; 94150; C1776; J0131; J0690; J1170; J2250; J2270; J2370; J2405; J2710; J3010; J7120

== ENCOUNTER → 2017-03-04 | Outpatient (CLI) | payer MEDICARE ==
[~2017-03-04] MED LIST changes: +COMMODE 3-IN-11 MIS; +GABA100C4 PO; +HYDR-3516 PO; +PRAV10TA PO; +ROBA750T PO; +VITA250T3 PO; +WALKER WHEELS/F1 MIS
[2017-03-04 12:51] LABS: AUTOMATED NEUTROPHIL # 2.5 TH/MM3 (1.8-7.7); BASOPHIL % 0.9 % (0.0-2.0); EOSINOPHIL # 0.1 TH/MM3 (0-0.4); EOSINOPHIL % 3.3 % (0.0-4.0); HEMATOCRIT 39.9 % (39.0-51.0); HEMO FLAGS DIFF FINAL; LYMPHOCYTE # 0.7 TH/MM3 (1.0-4.8); MEAN CELL VOLUME 85.5 FL (80.0-100.0); MEAN CORPUSCULAR HEMOGLOBIN 28.7 PG (27.0-34.0); MEAN CORPUSCULAR HGB CONC 33.5 % (32.0-36.0); MONO % 8.7 % (0.0-8.0); NEUT % 68.1 % (16.0-70.0); PLATELET COUNT 153 TH/MM3 (150-450); RED BLOOD COUNT 4.67 MIL/MM3 (4.50-5.90); RED CELL DISTRIBUTION WIDTH 15.2 % (11.6-17.2); WHITE BLOOD COUNT 3.6 TH/MM3 (4.0-11.0)
--- NOTE | 2017-03-04 12:53 | RADRPT ---
EXAM DATE/TIME: 03/04/2017 12:25 [facility] COMPARISON: CHEST SINGLE AP, November 24, 2015, 7:41. INDICATIONS : Evaluate for pneumonia, pneumothorax, or communicable disease. Preop chest for total left hip surgery on 03/13/17, no chest complaints at this time MEDICAL HISTORY : Hypertension. ICH, arthritis SURGICAL HISTORY : None. ENCOUNTER: Initial ACUITY: 1 day PAIN SCORE: 0/10 LOCATION: Bilateral chest FINDINGS: The lungs are clear without infiltrate, nodule, or mass. There is no appreciable pleural effusion fo r technique. Slight cardiomegaly has not changed. CONCLUSION: No acute cardiopulmonary disease. Araceli Paz MD on March 04, 2017 at 12:51 Board Certified Radiologist. This report was verified electronically.
[2017-03-04 12:55] LABS: INTERNATIONAL NORMALIZED RATIO 2.4 RATIO; PROTHROMBIN TIME - PATIENT 28.1 SEC (9.8-11.6)
[2017-03-04 13:16] LABS: BLOOD, URINE NEG (NEG); GLUCOSE,URINE NEG (NEG); KETONE, URINE NEG (NEG); NITRITE,URINE NEG (NEG); PH, URINE 6.5 (5.0-8.5); URINE COLOR YELLOW (YELLW/STRAW)
[2017-03-04 13:19] LABS: COMMENT (UR) CULT NOT INDICATED; CULTURE IF INDICATED CULT NOT INDICATED
[2017-03-04 13:23] LABS: POTASSIUM 3.9 MEQ/L (3.5-5.1)
--- NOTE | 2017-03-05 09:59 | EKG ---
Date Performed: 03/04/2017 Time Performed: 11:36:38 PTAGE: 81 years EKG: ATRIAL FIBRILLATION INCOMPLETE RIGHT BUNDLE BRANCH BLOCK NONSPECIFIC ST & T-WAVE ABNORMALIT Y ABNORMAL RHYTHM ECG Compared to prior tracing no significant change PREVIOUS TRACING : 11/22/15 DOCTOR: Олег Stevenson Interpretating Date/Time 03/05/2017 09:53:35
== END ==
LOC: CPRE 11:08
PROVIDERS: ATTEND Orthopaedic Surgery
DX: Z01.810 Encounter for preprocedural cardiovascular examination (principal); Z01.811 Encounter for preprocedural respiratory examination; Z01.812 Encounter for preprocedural laboratory examination; Z79.01 Long term (current) use of anticoagulants; M16.12 Unilateral primary osteoarthritis, left hip; R94.31 Abnormal electrocardiogram [ECG] [EKG]
CPT/HCPCS: 36415; 71020; 80048; 81001; 85025; 85610; 93005

== ENCOUNTER 2017-04-05 11:44 | Inpatient (IN) | payer MEDICARE ==
[~2017-04-05] VITALS: Ht 182.9 cm; Wt 92.0 kg
[~2017-04-05 11:44] MED LIST changes: -COMMODE 3-IN-11 MIS; +COUM3TAB PO; -COUM5TAB PO; -FISH500C PO; -FURO1TAB62 PO; -GABA100C4 PO; -MEDR4PAK PO; +NEUR300C PO; -WALKER WHEELS/F1 MIS
[2017-04-05 11:46] VITALS: BP 106/57; PULSE 85; RESP 12; TEMP 98.5; O2SAT 95
--- NOTE | 2017-04-05 11:55 | PD ---
Physical Exam Date Seen by Provider: Apr 05, 2017 Time Seen by Provider: 11:49 Narrative Pt is an 81 year old male presenting for evaluation of left hip pain. His PCP is out of town and he states "all he has left is us". He had surgery 3 weeks ago on this hip, pain is exacerbated since yesterday. Reports subjective fevers and chills yesterday. Discharged from [facility] last Saturday. No new injuries or trauma. Pt has been utilizing prescribed pain medication with no relief. states incision seems more inflamed and "hard". Home health RN also reports that the incision appears different. Pain is a 10/10 currently. Hx of afib, HTN , CVA, BPH. On Coumadin. Dr. Long was surgeon, [facility] is PCP. Data Data Last Documented VS Vital Signs Date Time Temp Pulse Resp B/P Pulse Ox O2 Delivery O2 Flow Rate FiO2 04/05/17 11:46 98.5 85 12 106/57 95 MDM Supervised Visit with ANA: Rachel Sánchez Apr 05, 2017 11:55
--- NOTE | 2017-04-05 12:25 | PD ---
HPI Chief Complaint: Pain: Acute or Chronic Time Seen by Provider: 12:25 Travel History International Travel<30 days: No Contact w/Intl Traveler<30days: No Traveled to known affect area: No History of Present Illness HPI 81-year-old male with history of A. fib, on Coumadin, hypertension, CAD, remote CVA, status post left hip replacement on March 13, presents to the emergency department for evaluation of severe left hip pain. Patient states since having the surgery by Dr. sullivan, things have been going well. He has been healing and rehabbing without any difficulty. Last evening after the visiting nurse came, patient began to have left hip pain with associated fever and chills. This progressed throughout the night the patient has been unable to ambulate with severe pain today in the left hip. He did take Percocet prior to arrival. Pain is a 10 out of 10, exacerbated with movement and touch. is concerned that the incision site appears "different." Patient denies any injury. No fall. No new exercises or activities. No other symptoms reported this time. He is currently not on his Coumadin after an INR of 4.0 earlier this week. PFSH Past Medical History Hx Anticoagulant Therapy: Yes (COUMADIN) Arthritis: No Asthma: No Atrial Fibrillation: Yes Autoimmune Disease: No Anxiety: No Depression: No Heart Rhythm Problems: Yes (A-fib) Cancer: No Cardiovascular Problems: Yes (A-FIB, HTN) High Cholesterol: Yes Chemotherapy: No Chest Pain: No Congestive Heart Failure: Yes COPD: No Cerebrovascular Accident: Yes (CVA 2016) Endocrine: No GERD: No Genitourinary: No Hepatitis: No Hiatal Hernia: No Hypertension: Yes Immune Disorder: No Kidney Stones: No Musculoskeletal: Yes (L4-L5, L5-S1 FUSION) Neurologic: Yes (2016 basal ganglia bleed, slight delayed speech r side weakness, unsteady) Psychiatric: No Reproductive: No Respiratory: No Migraines: No Radiation Therapy: No Renal Failure: No Seizures: No Sickle Cell Disease: No Sleep Apnea: No Ulcer: No Past Surgical History Abdominal Surgery: No AICD: No Arteriovenous Shunt: No Cardiac Surgery: No Ear Surgery: No Endocrine Surgery: No Eye Surgery: Yes (cataracts) Genitourinary Surgery: No Gynecologic Surgery: No Insulin Pump: No Joint Replacement: Yes (03/13/2017) Oral Surgery: Yes (parotid gland surgery on right) Pacemaker: No Thoracic Surgery: No Other Surgery: Yes (left thumb years ago) Social History Alcohol Use: No Tobacco Use: No Substance Use: No Allergies-Medications (Allergen,Severity, Reaction): Coded Allergies: Tetracyclines (Verified Allergy, Severe, Erythema Multiforme, 04/05/17) Reported Meds & Prescriptions Reported Meds & Active Scripts Active Hydrocodone-Acetaminophen 5-325 mg Tab 1 Tab PO Q12HR PRN Coumadin (Warfarin) 3 Mg Tab 3 Mg PO DAILY@16 30 Days Neurontin (Gabapentin) 300 Mg Cap 300 Mg PO HS 30 Days Robaxin (Methocarbamol) 750 Mg Tab 750 Mg PO Q4H PRN 30 Days Vitamin C (Ascorbic Acid) 250 Mg Tab 1,000 Mg PO BID 30 Days Pravastatin 10 Mg Tab 10 Mg PO HS Multi Vitamin and Mineral (Multiple Vitamins W/ Minerals) 1 Tab Tab 1 Tab PO HS 30 Days Proscar (Finasteride) 5 Mg Tab 5 Mg PO HS 30 Days Do not crush. Nifedipine ER 24 HR (Nifedipine) 30 Mg Tab 30 Mg PO DAILY Lisinopril 20 Mg Tab 20 Mg PO DAILY 1 Days Doxazosin (Doxazosin Mesylate) 4 Mg Tab 4 Mg PO BID 30 Days Review of Systems Except as stated in HPI: all other systems reviewed are Neg Physical Exam Narrative GENERAL: Well-nourished male patient, in no acute distress SKIN: Focused skin assessment warm/dry. Well approximated incision site on the posterior lateral left hip. Steri-Strips are in place. There is slight erythema surrounding the proximal aspect of the incision site. There is no drainage. The area is warm to touch without significant erythema. Mild induration. No fluctuation. HEAD: Atraumatic. Normocephalic. EYES: Pupils equal and round. No scleral icterus. No injection or drainage. ENT: No nasal bleeding or discharge. Mucous membranes pink and moist. NECK: Trachea midline. No JVD. CARDIOVASCULAR: Regular rate and irregular rhythm. RESPIRATORY: No accessory muscle use. Clear to auscultation. Breath sounds equal bilaterally. GASTROINTESTINAL: Abdomen soft, non-tender, nondistended. Hepatic and splenic margins not palpable. MUSCULOSKELETAL: No obvious deformities. No clubbing. No cyanosis. No edema. Distal pulses are palpable. Cap refills within normal limits. NEUROLOGICAL: Awake and alert. No obvious cranial nerve deficits. Motor grossly within normal limits. Normal speech. PSYCHIATRIC: Appropriate mood and affect; insight and judgment normal. Data Data Last Documented VS Vital Signs Date Time Temp Pulse Resp B/P Pulse Ox O2 Delivery O2 Flow Rate FiO2 04/05/17 11:46 98.5 85 12 106/57 95 Orders Complete Blood Count With Diff (04/05/17 11:55) Comprehensive Metabolic Panel (04/05/17 11:55) Prothrombin Time / Inr (Pt) (04/05/17 11:55) Act Partial Throm Time (Ptt) (04/05/17 11:55) Lactic Acid Sepsis Protocol (04/05/17 11:55) Blood Culture (04/05/17 11:55) Westergren Sedimentation Rate (04/05/17 11:55) C-Reactive Protein (Crp) (04/05/17 11:55) Hip, Uni(Ap&Lat) Wo Ap Pelvis (04/05/17 ) Morphine Inj (Morphine Inj) (04/05/17 13:00) Ondansetron Inj (Zofran Inj) (04/05/17 13:00) Urinalysis - C+S If Indicated (04/05/17 13:19) Invasive Rad Dept Consult (04/05/17 ) Fluid Culture And Gram Stain (04/05/17 13:49) Consult Orthopedic (04/05/17 ) Labs Laboratory Tests Test 04/05/17 12:50 White Blood Count 11.8 TH/MM3 Red Blood Count 4.08 MIL/MM3 Hemoglobin 11.7 GM/DL Hematocrit 35.0 % Mean Corpuscular Volume 85.7 FL Mean Corpuscular Hemoglobin 28.6 PG Mean Corpuscular Hemoglobin 33.4 % Concent Red Cell Distribution Width 15.1 % Platelet Count 342 TH/MM3 Mean Platelet Volume 7.9 FL Neutrophils (%) (Auto) 88.5 % Lymphocytes (%) (Auto) 3.4 % Monocytes (%) (Auto) 7.7 % Eosinophils (%) (Auto) 0.1 % Basophils (%) (Auto) 0.3 % Neutrophils # (Auto) 10.4 TH/MM3 Lymphocytes # (Auto) 0.4 TH/MM3 Monocytes # (Auto) 0.9 TH/MM3 Eosinophils # (Auto) 0.0 TH/MM3 Basophils # (Auto) 0.0 TH/MM3 CBC Comment DIFF FINAL Differential Comment Erythrocyte Sedimentation Rate 53 mm/hr Sodium Level 132 MEQ/L Potassium Level 3.8 MEQ/L Chloride Level 99 MEQ/L Carbon Dioxide Level 23.5 MEQ/L Anion Gap 10 MEQ/L Blood Urea Nitrogen 14 MG/DL Creatinine 0.96 MG/DL Estimat Glomerular Filtration 75 ML/MIN Rate Random Glucose 104 MG/DL Lactic Acid Level 2.2 mmol/L Calcium Level 9.1 MG/DL Total Bilirubin 1.4 MG/DL Aspartate Amino Transf 13 U/L (AST/SGOT) Alanine Aminotransferase 25 U/L (ALT/SGPT) Alkaline Phosphatase 113 U/L C-Reactive Protein 17.50 MG/DL Total Protein 7.7 GM/DL Albumin 3.5 GM/DL [facility] Medical Decision Making Medical Screen Exam Complete: Yes Emergency Medical Condition: Yes Medical Record Reviewed: Yes Differential Diagnosis Septic joint versus cellulitis versus postoperative infection versus UTI versus sepsis Narrative Course 81-year-old male presents to emergency department for evaluation. Patient appears without distress. His vital signs are stable. He is afebrile here in the emergency department however he did take Percocet prior to arrival. The incision site on the left hip appears without eye and a significant infection however movement of the left hip elicits significant pain for the patient. He is unwilling to ambulate at this time secondary to pain. Laboratory Tests Test 04/05/17 12:50 White Blood Count 11.8 TH/MM3 Red Blood Count 4.08 MIL/MM3 Hemoglobin 11.7 GM/DL Hematocrit 35.0 % Mean Corpuscular Volume 85.7 FL Mean Corpuscular Hemoglobin 28.6 PG Mean Corpuscular Hemoglobin 33.4 % Concent Red Cell Distribution Width 15.1 % Platelet Count 342 TH/MM3 Mean Platelet Volume 7.9 FL Neutrophils (%) (Auto) 88.5 % Lymphocytes (%) (Auto) 3.4 % Monocytes (%) (Auto) 7.7 % Eosinophils (%) (Auto) 0.1 % Basophils (%) (Auto) 0.3 % Neutrophils # (Auto) 10.4 TH/MM3 Lymphocytes # (Auto) 0.4 TH/MM3 Monocytes # (Auto) 0.9 TH/MM3 Eosinophils # (Auto) 0.0 TH/MM3 Basophils # (Auto) 0.0 TH/MM3 CBC Comment DIFF FINAL Differential Comment Erythrocyte Sedimentation Rate 53 mm/hr Sodium Level 132 MEQ/L Potassium Level 3.8 MEQ/L Chloride Level 99 MEQ/L Carbon Dioxide Level 23.5 MEQ/L Anion Gap 10 MEQ/L Blood Urea Nitrogen 14 MG/DL Creatinine 0.96 MG/DL Estimat Glomerular Filtration 75 ML/MIN Rate Random Glucose 104 MG/DL Lactic Acid Level 2.2 mmol/L Calcium Level 9.1 MG/DL Total Bilirubin 1.4 MG/DL Aspartate Amino Transf 13 U/L (AST/SGOT) Alanine Aminotransferase 25 U/L (ALT/SGPT) Alkaline Phosphatase 113 U/L C-Reactive Protein 17.50 MG/DL Total Protein 7.7 GM/DL Albumin 3.5 GM/DL CBC is a mild leukocytosis 11.8, neutrophilia of 10.4. Sedimentation rate is 53. CMP is with mild hyponatremia 132. CRP is 17.5. Lactic acid is 2.2. Urinalysis is not yet resulted. X-ray of the left hip is without acute abnormality. Total left hip replacement is noted. I discussed the patient with Dr. Nugent, orthopedic surgeon on- call for Dr. sullivan. He requests admission to medicine, aspiration and culture of the left hip by interventional radiology to be followed by broad- spectrum antibiotics. Consult has some place to him. A call has been placed to [facility] for admission. Diagnosis Primary Impression: Left hip pain Additional Impressions: Elevated sed rate Elevated C-reactive protein (CRP) Lactic acid acidosis S/P total hip arthroplasty Qualified Code: Z96.642 - Status post total replacement of left hip Admitting Information Admitting Physician Requests: Admit Condition: Stable Radha Jimenez Apr 05, 2017 12:25
[2017-04-05] MEDS ORDERED: MORPHINE SULFATE 4 MG/ML INJ IV PUSH ONE (13:00)
[2017-04-05] MEDS ORDERED: ONDANSETRON HCL 4 MG/2 ML VIAL IV PUSH ONE (13:00)
[2017-04-05 13:13] LABS: AUTOMATED NEUTROPHIL # 10.4 TH/MM3 (1.8-7.7); BASOPHIL % 0.3 % (0.0-2.0); EOSINOPHIL % 0.1 % (0.0-4.0); HEMO FLAGS DIFF FINAL; LYMPH % 3.4 % (9.0-44.0); LYMPHOCYTE # 0.4 TH/MM3 (1.0-4.8); MEAN CELL VOLUME 85.7 FL (80.0-100.0); MEAN CORPUSCULAR HEMOGLOBIN 28.6 PG (27.0-34.0); MEAN CORPUSCULAR HGB CONC 33.4 % (32.0-36.0); MONO % 7.7 % (0.0-8.0); NEUT % 88.5 % (16.0-70.0); PLATELET COUNT 342 TH/MM3 (150-450); RED BLOOD COUNT 4.08 MIL/MM3 (4.50-5.90); RED CELL DISTRIBUTION WIDTH 15.1 % (11.6-17.2); WHITE BLOOD COUNT 11.8 TH/MM3 (4.0-11.0)
[2017-04-05 13:33] LABS: ALT (GPT) 25 U/L (12-78); ANION GAP 10 MEQ/L (5-15); AST (GOT) 13 U/L (15-37); BICARBONATE 23.5 MEQ/L (21.0-32.0); BLOOD UREA NITROGEN 14 MG/DL (7-18); CHLORIDE 99 MEQ/L (98-107); GLOMERULAR FILTRATION RATE 75 ML/MIN (>89); POTASSIUM 3.8 MEQ/L (3.5-5.1); SODIUM (NA) 132 MEQ/L (136-145)
[2017-04-05 13:36] LABS: ALKALINE PHOSPHATASE 113 U/L (45-117); TOTAL BILIRUBIN ADULT 1.4 MG/DL (0.2-1.0)
--- NOTE | 2017-04-05 13:56 | RADRPT ---
EXAM DATE/TIME: 04/05/2017 13:01 [facility] COMPARISON: No previous studies available for comparison. INDICATIONS : Complains of left hip pain. MEDICAL HISTORY : None. SURGICAL HISTORY : Left total hip ENCOUNTER: Initial ACUITY: 1 day PAIN SCORE: 10/10 LOCATION: Left hip FINDINGS: A two view examination of the left hip was performed. A left hip prosthesis is noted in place. Acetab ular and femoral components are well-seated assess the realignment. There is no evidence of acute fra cture, soft tissue swelling or dislocation. CONCLUSION: 1. No acute process. 2. Status post total left hip replacement. Mane Moss MD on April 05, 2017 at 13:54 Board Certified Radiologist. This report was verified electronically.
[2017-04-05] MEDS ORDERED: ASCO1TAB14 PO (14:06)
[2017-04-05] MEDS ORDERED: COUM3TAB PO (14:06)
[2017-04-05 14:39] LABS: INTERNATIONAL NORMALIZED RATIO 4.3 RATIO; PROTHROMBIN TIME - PATIENT 50.6 SEC (9.8-11.6)
[2017-04-05] MEDS ORDERED: cloNIDine HCL 0.1 MG TAB PO PRN (14:45)
[2017-04-05] MEDS ORDERED: NALOXONE HCL 0.4 MG/ML AMP IV PRN (14:45)
[2017-04-05] MEDS ORDERED: ACETAMINOPHEN/HYDROcodone 325 MG/5 MG TAB PO PRN (14:45)
[2017-04-05] MEDS ORDERED: ENALAPRILAT 1.25 MG/ML VIAL IV PRN (14:45)
[2017-04-05] MEDS ORDERED: SODIUM CHLORIDE 0.9% FLUSH 10 ML FLUSH IV FLUSH PRN (14:45)
[2017-04-05] MEDS ORDERED: PIPERACIL-TAZO 3.375 GM PREMIX 50 ML IV SCH (14:45)
[2017-04-05] MEDS ORDERED: ONDANSETRON HCL 4 MG/2 ML VIAL IVP PRN (14:45)
[2017-04-05] MEDS ORDERED: VANCOMYCIN INJ 1,000 MG in SODIUM CHLOR 0.9% 250 ML INJ 250 ML IV SCH (14:45)
[2017-04-05] MEDS ORDERED: MAGNESIUM HYDROXIDE SUSP 30 ML CUP PO PRN (14:45)
[2017-04-05] MEDS ORDERED: LACTULOSE SYRUP 20 GM/30 ML CUP PO PRN (14:45)
[2017-04-05] MEDS ORDERED: Vancomycin Consult Pharmacy 1 EA OTHER SCH (14:45)
[2017-04-05] MEDS ORDERED: ACETAMINOPHEN 325 MG TAB PO PRN (14:45)
[2017-04-05] MEDS ORDERED: SENNOSIDES 8.6 MG TAB PO PRN (14:45)
[2017-04-05 14:46] LABS: APTT (PATIENT) 47.8 SEC (24.3-30.1)
[2017-04-05 15:04] LABS: LACTIC ACID GHOST NOT REPORTABLE
[2017-04-05 15:11] LABS: BLOOD, URINE NEG (NEG); COMMENT (UR) CULT NOT INDICATED; CULTURE IF INDICATED CULT NOT INDICATED; GLUCOSE,URINE NEG (NEG); KETONE, URINE NEG (NEG); MUCUS URINE MOD /lpf (OCC); NITRITE,URINE NEG (NEG); URINE COLOR DARK-YELLOW (YELLW/STRAW)
--- NOTE | 2017-04-05 15:50 | HHI.HP ---
HPI Service [facility] Primary Care Physician Jakob Guillermo MD Admission Diagnosis L hip pain; inability to ambulate; ?septic joint; lactic acidosis; Diagnoses: Chief Complaint: Left hip pain, fevers, chills Travel History International Travel<30 Days: No Contact w/Intl Traveler <30 Da: No Traveled to Known Affected Are: No History of Present Illness Written by Rex Gallo, acting as scribe for Dr. Aceves on 04/05/17 at 15: 29. Patient is an 81-year-old male with primary medical history of A. fib on Coumadin, hemorrhagic thalamic CVA, HTN who came into the hospital for evaluation of left hip secondary to increasing pain, associated with fevers and chills. Patient is status post left total hip arthroplasty per Dr. Long 03/12, went to rehabilitation and did well and was sent home with home health care. Patient was evaluated by home health nurse and recommended to go to the emergency department for further workup. Patient and states that he was doing well yesterday, however in the evening he had fevers, rigors, increasing pain unable to bear weight, states that the left hip incision site was hard, red , purple but without any drainage. Patient states that the pain has been manageable before, however this morning he is unable to bear weight, pain is on the left leg, nonradiating, sharp, unrelieved by current home pain regimen. On exam, patient states pain medication that was given to him in the ED is working well and now in no pain or discomfort. Denies SOB/ dyspnea. Denies chest pain , palpitations, headaches, dizziness. Denies fevers, chills, n/v/d. Denies dysuria. Review of Systems Except as stated in HPI: all other systems reviewed are Neg Past Family Social History Past Medical History History of CVA 2016 Hemorrhagic thalamic bleed Hypertension Atrial Fibrillation on Coumadin Benign prostatic hypertroph Past Surgical History Left thumb surgery Lumbar laminectomy and L4/L5/S1 fusion Tonsillectomy Right mehnaz-parotidectomy Allergies: Coded Allergies: Tetracyclines (Verified Allergy, Severe, Erythema Multiforme, 04/05/17) Family History Paternal medical history significant for acute [place], at the age of 55. Maternal medical history significant for lung cancer. Social History Patient is . Clarisa at the bedside. Occasional alcohol use Denies current tobacco use, quit smoking 1982 Denies illicit drug use Physical Exam Vital Signs Vital Signs Date Time Temp Pulse Resp B/P Pulse Ox O2 Delivery O2 Flow Rate FiO2 04/05/17 11:46 98.5 85 12 106/57 95 Physical Exam GENERAL: This is a well-nourished, well-developed patient, in no apparent distress. SKIN: Warm and dry. HEAD: Normocephalic. No temporal or scalp tenderness. EYES: Pupils equal round and reactive. Extraocular motions intact. No scleral icterus. No injection or drainage. ENT: Nose without bleeding, purulent drainage or septal hematoma. Throat without erythema, tonsillar hypertrophy or exudate. Uvula midline. Airway patent. NECK: Trachea midline. No JVD or lymphadenopathy. Supple, nontender, no meningeal signs. CARDIOVASCULAR: Irregular heart rate without murmurs, gallops, or rubs. RESPIRATORY: Clear to auscultation. Breath sounds equal bilaterally. No wheezes , rales, or rhonchi. GASTROINTESTINAL: Abdomen soft, non-tender, nondistended. Bowel sounds active 4. No guarding. MUSCULOSKELETAL: Extremities without clubbing, cyanosis. Left hip incision area upper portion with in duration, erythema, edema, left hip +1-2 edema. NEUROLOGICAL: Awake and alert. Oriented to time, place, person. Right-sided weakness. Motor and sensory grossly within normal limits. Normal speech. Laboratory Laboratory Tests Test 04/05/17 04/05/17 04/05/17 12:50 13:15 14:10 White Blood Count 11.8 Red Blood Count 4.08 Hemoglobin 11.7 Hematocrit 35.0 Mean Corpuscular Volume 85.7 Mean Corpuscular Hemoglobin 28.6 Mean Corpuscular Hemoglobin 33.4 Concent Red Cell Distribution Width 15.1 Platelet Count 342 Mean Platelet Volume 7.9 Neutrophils (%) (Auto) 88.5 Lymphocytes (%) (Auto) 3.4 Monocytes (%) (Auto) 7.7 Eosinophils (%) (Auto) 0.1 Basophils (%) (Auto) 0.3 Neutrophils # (Auto) 10.4 Lymphocytes # (Auto) 0.4 Monocytes # (Auto) 0.9 Eosinophils # (Auto) 0.0 Basophils # (Auto) 0.0 CBC Comment DIFF FINAL Differential Comment Erythrocyte Sedimentation Rate 53 Sodium Level 132 Potassium Level 3.8 Chloride Level 99 Carbon Dioxide Level 23.5 Anion Gap 10 Blood Urea Nitrogen 14 Creatinine 0.96 Estimat Glomerular Filtration 75 Rate Random Glucose 104 Lactic Acid Level 2.2 Calcium Level 9.1 Total Bilirubin 1.4 Aspartate Amino Transf 13 (AST/SGOT) Alanine Aminotransferase 25 (ALT/SGPT) Alkaline Phosphatase 113 C-Reactive Protein 17.50 Total Protein 7.7 Albumin 3.5 Urine Color DARK-YELLOW Urine Turbidity CLEAR Urine pH 6.0 Urine Specific [place] 1.028 Urine Protein 30 Urine Glucose (UA) NEG Urine Ketones NEG Urine Occult Blood NEG Urine Nitrite NEG Urine Bilirubin NEG Urine Urobilinogen 2.0 Urine Leukocyte Esterase NEG Urine WBC 2 Urine Mucus MOD Microscopic Urinalysis Comment CULT NOT INDICATED Prothrombin Time 50.6 Prothromb Time International 4.3 Ratio Activated Partial 47.8 Thromboplast Time Date/Time Procedure Status Source Growth 04/05/17 12:50 Aerobic Blood Culture Received Blood Peripheral Pending 04/05/17 12:50 Anaerobic Blood Culture Received Blood Peripheral Pending Result Diagram: 04/05/17 1250 04/05/17 1250 Imaging EKG tracing interpreted by me with atrial fibrillation, incomplete RBBB, T changes in the anterolateral leads. Compared to previous EKG, T changes in V4 to V5 are new Last Impressions Hip X-Ray 04/05/17 0000 Signed Impressions: Service Date/Time: Wednesday, April 05, 2017 13:01 - CONCLUSION: 1. No acute process. 2. Status post total left hip replacement. Mane Moss MD Assessment and Plan Problem List: (1) Left hip pain ICD Code: M25.552 Status: Acute (2) Elevated C-reactive protein (CRP) ICD Code: R79.82 Status: Acute (3) Elevated sed rate ICD Code: R70.0 Status: Acute (4) Lactic acid acidosis ICD Code: E87.2 Status: Acute (5) Anticoagulated on Coumadin ICD Code: Z51.81 Status: Chronic (6) Hypertension ICD Code: I10 Status: Chronic (7) Chronic atrial fibrillation ICD Code: I48.2 Status: Chronic (8) Right hemiparesis ICD Code: G81.91 Status: Acute (9) BPH (benign prostatic hyperplasia) ICD Code: N40.0 Status: Chronic (10) History of hemorrhagic stroke with residual hemiparesis ICD Code: I69.359 Status: Acute (11) S/P total hip arthroplasty ICD Code: Z96.649 Status: Acute Assessment and Plan Patient is an 81-year-old male with primary medical history of A. fib on Coumadin, hemorrhagic thalamic CVA, HTN who came into the hospital for evaluation of left hip secondary to increasing pain, associated with fevers and chills.\ Suspect severe sepsis Left hip incision/operative infection Suspect Septic Arthritis - Reports of increasing pain, unable to bear weight, fevers, rigors. - Mild leukocytosis 11.8, ESR 53, CRP 17.50, T bili 1.4, lactic acid 2.2 - suspicion of severe sepsis - Consulted orthopedic Dr. Nugent, recommends aspiration of the joint by IR, broad-spectrum antibiotics. - Will start patient on vancomycin IV 15 mg/kg, Zosyn IV 3.375 every 6 hours - after aspiration of the joint - INR 4.3 - dw IR, benefits of aspiration outweigh risk. Procedure with low bleeding risk. Pt agrees to proceed and willing to take risk. FFP if bleeding ensues - Place on telemetry secondary to atrial fibrillation - Pain management with morphine 2 mg IV every 3 hours when necessary for breakthrough pain, [place] 1 5/325mg or [place] 1 10/325mg based on pain scale - Blood cultures x2, follow-up results - UA negative - If aspiration cultures are positive, consider consulting infectious disease for guidance in antibiotic use and duration - Repeat labs in a.m. HTN HLD A. fib, coumadin - supratherapeutic INR - Hold Coumadin for now, supratherapeutic INR 4.3, repeat INR tomorrow. - Continue lisinopril 20 mg daily, Procardia 30 mg daily, Cardura 4 mg twice a day, pravastatin 10 mg daily at bedtime - Clonidine when necessary - Monitor BP trend BPH - Continue home medication Proscar 5 mg daily at bedtime DVT prop patient on Coumadin and supratherapeutic INR Code Status Full code Discussed Condition With Patient, Clarisa, nursing, ED attending This note was transcribed by mary Gallo. I, Dr. Brenden Aceves personally performed the history, physical exam, and medical decision making; and confirmed the accuracy of the information in the transcribed note. Authenticated by Dr. Brenden Aceves on 04/05/17 at 15:33 Physician Certification 2 Midnight Certification Type: Admission for Inpatient Services Order for Inpatient Services The services are ordered in accordance with Medicare regulations or non- Medicare payer requirements, as applicable. In the case of services not specified as inpatient-only, they are appropriately provided as inpatient services in accordance with the 2-midnight benchmark. Estimated LOS (days): 2 days is the estimated time the patient will need to remain in the hospital, assuming treatment plan goals are met and no additional complications. Post-Hospital Plan: Not yet determined Problem Qualifiers (1) S/P total hip arthroplasty: Qualified Code: Z96.642 - Status post total replacement of left hip Rex Hays Apr 05, 2017 15:50 Brenden Aceves MD Apr 05, 2017 16:13
--- NOTE | 2017-04-05 16:55 | PD.CONS ---
cc: Rakesh Long MD; Fercho Crain MD; Fletcher Nugent MD (Charles) HPI Service [facility] Consult Requested By Reason for Consult Left hip pain Primary Care Physician Jakob Guillermo MD Admission Diagnosis L hip pain; inability to ambulate; ?septic joint; lactic acidosis; Diagnoses: (1) Left hip pain (2) Elevated C-reactive protein (CRP) (3) Elevated sed rate (4) Lactic acid acidosis (5) Anticoagulated on Coumadin (6) Hypertension (7) Chronic atrial fibrillation (8) Right hemiparesis (9) BPH (benign prostatic hyperplasia) (10) History of hemorrhagic stroke with residual hemiparesis (11) S/P total hip arthroplasty Chief Complaint: Left hip pain History of Present Illness 81 y/venus had left total hip by Tyson Long MD on 03/13/2017. He was doing well until today when he began having increased pain. Past Family Social History Past Medical History History of CVA 2016 Hemorrhagic thalamic bleed Hypertension Atrial Fibrillation on Coumadin Benign prostatic hypertroph Past Surgical History Left thumb surgery Lumbar laminectomy and L4/L5/S1 fusion Tonsillectomy Right mehnaz-parotidectomy Allergies: Coded Allergies: Tetracyclines (Verified Allergy, Severe, Erythema Multiforme, 04/05/17) Active Ordered Medications Current Medications Medications (Trade) Dose Ordered Sig/Lesli Route Start Time Stop Time Status Last Admin (Cardura) 4 mg BID PO 04/05/17 21:00 (Proscar) 5 mg HS PO 04/05/17 21:00 (Neurontin) 300 mg HS PO 04/05/17 21:00 (Prinivil) 20 mg DAILY PO 04/06/17 09:00 (Procardia Xl) 30 mg DAILY PO 04/06/17 09:00 (Pravachol) 10 mg HS PO 04/05/17 21:00 (Vitamin C) 1,000 mg BID PO 04/05/17 21:00 (Robaxin) 750 mg Q4H PRN PO 04/05/17 15:30 Multivitamins/ Minerals Therapeutic 1 tab 1 tab HS PO 04/05/17 21:00 (Coumadin Consult Pharmacy) 0 ml @ 0 mls/hr UNSCH OTHER 04/05/17 14:30 (Vasotec Inj) 1.25 mg Q6H PRN IV 04/05/17 14:45 Clonidine 0.1 mg 0.1 mg Q6H PRN PO 04/05/17 14:45 (NS 1000 ml Inj) 1,000 ml @ 100 mls/hr Q10H IV 04/05/17 15:00 (NS Flush) 2 ml UNSCH PRN IV FLUSH 04/05/17 14:45 (NS Flush) 2 ml BID IV FLUSH 04/05/17 21:00 (Tylenol) 650 mg Q4H PRN PO 04/05/17 14:45 (Zofran Inj) 4 mg Q6H PRN IVP 04/05/17 14:45 (Tylenol) 650 mg Q6H PRN PO 04/05/17 14:45 ([place] 5-325 Mg) 1 tab Q4H PRN PO 04/05/17 14:45 ([place] 10-325 Mg) 1 tab Q4H PRN PO 04/05/17 14:45 (Morphine Inj) 2 mg Q3H PRN IV 04/05/17 14:45 (Narcan Inj) 0.4 mg UNSCH PRN IV 04/05/17 14:45 (Addis-Colace) 1 tab BID PO 04/05/17 21:00 (Milk Of Magnesia Liq) 30 ml Q12H PRN PO 04/05/17 14:45 (Senokot) 17.2 mg Q12H PRN PO 04/05/17 14:45 Lactulose 30 ml 30 ml DAILY PRN PO 04/05/17 14:45 Pharmacy Profile Note 0 ml @ 0 mls/hr UNSCH OTHER 04/05/17 14:45 (Vancomycin Inj/ NS 250 ml Inj) 262.5 ml @ 250 mls/hr Q24H IV 04/05/17 18:00 Miscellaneous Information SPECIFIC LAB TO BE GEOVANNA... ONCE ONCE .XX 04/08/17 17:45 04/08/17 17:46 Reported Meds & Active Scripts Active Hydrocodone-Acetaminophen 5-325 mg Tab 1 Tab PO Q12HR PRN Neurontin (Gabapentin) 300 Mg Cap 300 Mg PO HS 30 Days Robaxin (Methocarbamol) 750 Mg Tab 750 Mg PO Q4H PRN 30 Days Pravastatin 10 Mg Tab 10 Mg PO HS Multi Vitamin and Mineral (Multiple Vitamins W/ Minerals) 1 Tab Tab 1 Tab PO HS 30 Days Proscar (Finasteride) 5 Mg Tab 5 Mg PO HS 30 Days Do not crush. Nifedipine ER 24 HR (Nifedipine) 30 Mg Tab 30 Mg PO DAILY Lisinopril 20 Mg Tab 20 Mg PO DAILY 1 Days Doxazosin (Doxazosin Mesylate) 4 Mg Tab 4 Mg PO BID 30 Days Reported C-1000 (Ascorbic Acid) 1,000 Mg Tablet 1,000 Mg PO BID Coumadin (Warfarin) 3 Mg Tab 3 Mg PO HS Family History Paternal medical history significant for acute [place], at the age of 55. Maternal medical history significant for lung cancer. Social History Patient is . Clarisa at the bedside. Occasional alcohol use Denies current tobacco use, quit smoking 1982 Denies illicit drug use Physical Exam Vital Signs Vital Signs Date Time Temp Pulse Resp B/P Pulse Ox O2 Delivery O2 Flow Rate FiO2 04/05/17 11:46 98.5 85 12 106/57 95 Physical Exam He is resting comfortably, supine in the bed in the ED. The left hip has a healing wound with almost no erythema. There is not much tenderness at this time. There is no drainage. Laboratory Laboratory Tests Test 04/05/17 04/05/17 04/05/17 04/05/17 12:50 13:15 14:10 15:37 White Blood Count 11.8 Red Blood Count 4.08 Hemoglobin 11.7 Hematocrit 35.0 Mean Corpuscular Volume 85.7 Mean Corpuscular Hemoglobin 28.6 Mean Corpuscular Hemoglobin 33.4 Concent Red Cell Distribution Width 15.1 Platelet Count 342 Mean Platelet Volume 7.9 Neutrophils (%) (Auto) 88.5 Lymphocytes (%) (Auto) 3.4 Monocytes (%) (Auto) 7.7 Eosinophils (%) (Auto) 0.1 Basophils (%) (Auto) 0.3 Neutrophils # (Auto) 10.4 Lymphocytes # (Auto) 0.4 Monocytes # (Auto) 0.9 Eosinophils # (Auto) 0.0 Basophils # (Auto) 0.0 CBC Comment DIFF FINAL Differential Comment Erythrocyte Sedimentation Rate 53 Sodium Level 132 Potassium Level 3.8 Chloride Level 99 Carbon Dioxide Level 23.5 Anion Gap 10 Blood Urea Nitrogen 14 Creatinine 0.96 Estimat Glomerular Filtration 75 Rate Random Glucose 104 Lactic Acid Level 2.2 Calcium Level 9.1 Total Bilirubin 1.4 Aspartate Amino Transf 13 (AST/SGOT) Alanine Aminotransferase 25 (ALT/SGPT) Alkaline Phosphatase 113 C-Reactive Protein 17.50 Total Protein 7.7 Albumin 3.5 Urine Color DARK-YELLOW Urine Turbidity CLEAR Urine pH 6.0 Urine Specific [place] 1.028 Urine Protein 30 Urine Glucose (UA) NEG Urine Ketones NEG Urine Occult Blood NEG Urine Nitrite NEG Urine Bilirubin NEG Urine Urobilinogen 2.0 Urine Leukocyte Esterase NEG Urine WBC 2 Urine Mucus MOD Microscopic Urinalysis Comment CULT NOT INDICATED Prothrombin Time 50.6 Prothromb Time International 4.3 Ratio Activated Partial 47.8 Thromboplast Time Blood Bank Comment Date/Time Procedure Status Source Growth 04/05/17 12:50 Aerobic Blood Culture Received Blood Peripheral Pending 04/05/17 12:50 Anaerobic Blood Culture Received Blood Peripheral Pending Result Diagram: 04/05/17 1250 04/05/17 1250 Imaging Last 72 hours Impressions Hip X-Ray 04/05/17 0000 Signed Impressions: Service Date/Time: Wednesday, April 05, 2017 13:01 - CONCLUSION: 1. No acute process. 2. Status post total left hip replacement. Mane Moss MD Assessment & Plan Ortho Post Op Day #: 22 Problem List: (1) S/P total hip arthroplasty Assessment and Plan He is seen for Dr. Long. I have recommended that IR do a hip arthrocentesis prior to initiating antiobiotics. Josemanuel Crain MD is covering the weekend. Dr. Long returns Saturday. The elevated INR will probably delay any surgery. Fletcher Nugent MD ([place]) Apr 05, 2017 16:55
--- NOTE | 2017-04-05 18:32 | RADRPT ---
EXAM DATE/TIME: 04/05/2017 17:50 [facility] COMPARISON: No previous studies available for comparison. INDICATIONS : Patient with a history of left hip pain. MEDICAL HISTORY : HTN Dyslipidemia PAD Heart Failure Afib SURGICAL HISTORY : Left hip replacement ENCOUNTER: Initial ACUITY: 1 week PAIN SCORE: 10/10 LOCATION: Left hip FLUORO TIME: 3.4 minutes IMAGE SERIES: 0 CONTRAST: 2 cc Omnipaque 350 DEVICE(S): 22 gauge needle was placed into the left hip joint. FLUID: Total volume of1 cc of clear red fluid was removed. Fluid specimen was submitted to the lab for evaluation. PROCEDURE : 1. Fluoroscopically guided left hip aspiration. The risks, benefits and alternatives to the procedure were explained and verbal and written consent w as obtained. The site was prepped in sterile fashion. Full sterile technique was used, including ca p, mask, sterile gloves and gown and a large sterile sheet. Hand hygiene and 2% chlorhexidine and/or betadine/alcohol prep was utilized per protocol for cutaneous antisepsis. The skin and subcutaneous tissues were infiltrated with local anesthetic solution. Under direct fluoroscopic guidance, a 22 gauge spinal needle was introduced to the left hip. Needle w as positioned against the head component of the hip prosthesis. There wasfluid to be aspirated at thi s location. The needle was removed manipulated along the neck portion of the femoral component and ag ain no fluid was located. Finally, Omnipaque contrast and normal saline was injected. This did not de monstrate any focal pockets of fluid within the joint capsule. A small volume of the injected fluid w as reaspirated and sent for culture. The patient tolerated the procedure well and there were no complications. CONCLUSION: Uncomplicated aspiration as above. There was no hip joint effusion identified. Jakob Agarwal MD on April 05, 2017 at 18:29 Board Certified Radiologist. This report was verified electronically.
[2017-04-05] MEDS: SODIUM CHLOR 0.9% 1000 ML INJ 1,000 ML IV SCH (18:43)
[2017-04-05] MEDS: VANCOMYCIN INJ 1,250 MG in SODIUM CHLOR 0.9% 250 ML INJ 250 ML IV SCH (18:43)
[2017-04-05] MEDS: ACETAMINOPHEN/HYDROcodone 325 MG/10 MG TAB PO PRN ×2 (18:50→23:16)
[2017-04-05 20:00] VITALS: BP 130/75; PULSE 93; RESP 18; TEMP 99.3; O2SAT 94
[2017-04-05] MEDS: SODIUM CHLORIDE 0.9% FLUSH 10 ML FLUSH IV FLUSH SCH (20:11)
[2017-04-05] MEDS: GABAPENTIN 300 MG CAP PO SCH (20:11)
[2017-04-05] MEDS: DOXAZOSIN MESYLATE 4 MG TAB PO SCH (20:11)
[2017-04-05] MEDS: PRAVASTATIN SOD 10 MG TAB PO SCH (20:12)
[2017-04-05] MEDS: DOCUSATE SODIUM 50 MG/SENNA 8.6 MG TAB PO SCH (20:12)
[2017-04-05] MEDS: FINASTERIDE 5 MG TAB PO SCH (20:12)
[2017-04-05] MEDS: MULTIVITAMINS/MINERALS THERAPEUTIC TAB PO SCH (20:12)
[2017-04-05] MEDS: ASCORBIC ACID 500 MG TAB PO SCH (20:13)
[2017-04-05] MEDS: MORPHINE SULFATE 4 MG/ML INJ IV PRN (20:14)
[2017-04-05] MEDS: PIPERACIL-TAZO 3.375 GM PREMIX 50 ML IV SCH (23:23)
[2017-04-06] VITALS (10 sets, daily range): BP systolic 94–156; BP diastolic 53–78; PULSE 68–116; RESP 16–18; TEMP 97.7–102.3; O2SAT 93–98
[2017-04-06] MEDS: SODIUM CHLOR 0.9% 1000 ML INJ 1,000 ML IV SCH (02:12)
[2017-04-06] MEDS: PIPERACIL-TAZO 3.375 GM PREMIX 50 ML IV SCH ×3 (04:19→16:12)
[2017-04-06] MEDS: ACETAMINOPHEN/HYDROcodone 325 MG/10 MG TAB PO PRN ×3 (04:22→14:10)
[2017-04-06] MEDS: MORPHINE SULFATE 4 MG/ML INJ IV PRN ×3 (06:35→15:28)
[2017-04-06 07:24] LABS: AUTOMATED NEUTROPHIL # 7.6 TH/MM3 (1.8-7.7); BASOPHIL % 0.4 % (0.0-2.0); EOSINOPHIL % 0.1 % (0.0-4.0); HEMATOCRIT 29.3 % (39.0-51.0); HEMO FLAGS DIFF FINAL; LYMPH % 4.7 % (9.0-44.0); LYMPHOCYTE # 0.4 TH/MM3 (1.0-4.8); MEAN CELL VOLUME 85.8 FL (80.0-100.0); MEAN CORPUSCULAR HEMOGLOBIN 28.3 PG (27.0-34.0); MONO % 8.4 % (0.0-8.0); NEUT % 86.4 % (16.0-70.0); PLATELET COUNT 229 TH/MM3 (150-450); RED BLOOD COUNT 3.41 MIL/MM3 (4.50-5.90); RED CELL DISTRIBUTION WIDTH 14.9 % (11.6-17.2); WHITE BLOOD COUNT 8.8 TH/MM3 (4.0-11.0)
[2017-04-06 07:27] LABS: INTERNATIONAL NORMALIZED RATIO 4.2 RATIO; PROTHROMBIN TIME - PATIENT 49.5 SEC (9.8-11.6)
[2017-04-06 07:52] LABS: BICARBONATE 25.5 MEQ/L (21.0-32.0); POTASSIUM 4.6 MEQ/L (3.5-5.1)
[2017-04-06] MEDS: ASCORBIC ACID 500 MG TAB PO SCH ×2 (08:50→23:16)
[2017-04-06] MEDS: DOCUSATE SODIUM 50 MG/SENNA 8.6 MG TAB PO SCH ×2 (08:50→23:15)
[2017-04-06] MEDS: NIFEdipine 30 MG SUSTAINED RELEASE TAB PO SCH (08:50)
[2017-04-06] MEDS: SODIUM CHLORIDE 0.9% FLUSH 10 ML FLUSH IV FLUSH SCH ×2 (08:58→23:14)
[2017-04-06] MEDS: LISINOPRIL 20 MG TAB PO SCH (08:58)
[2017-04-06] MEDS: DOXAZOSIN MESYLATE 4 MG TAB PO SCH ×2 (08:58→21:00)
--- NOTE | 2017-04-06 10:08 | HHI.PR ---
Subjective Remarks Follow-up suspected left hip postop infection. Pain controlled. Discussed with RN Objective Vitals Vital Signs Date Time Temp Pulse Resp B/P Pulse Ox O2 Delivery O2 Flow Rate FiO2 04/06/17 08:00 97.7 78 16 114/67 97 04/06/17 04:00 99.3 68 18 109/59 97 04/06/17 00:00 99.4 116 16 156/78 93 04/05/17 20:00 99.3 93 18 130/75 94 04/05/17 11:46 98.5 85 12 106/57 95 I/O 04/05/17 04/05/17 04/05/17 04/06/17 04/06/17 04/06/17 06:59 14:59 22:59 06:59 14:59 22:59 Intake Total 202 ml 260 ml Output Total 600 ml Balance 202 ml -340 ml Intake Oral 260 ml IV Total 202 ml Output Urine Total 600 ml # Bowel Movements 0 Result Diagram: 04/06/17 0624 04/06/17 0624 Imaging Last Impressions Hip X-Ray 04/05/17 0000 Signed Impressions: Service Date/Time: Wednesday, April 05, 2017 13:01 - CONCLUSION: 1. No acute process. 2. Status post total left hip replacement. Mane Moss MD Hip Aspiration/Injection 04/05/17 0000 Signed Impressions: Service Date/Time: Wednesday, April 05, 2017 17:50 - CONCLUSION: Uncomplicated aspiration as above. There was no hip joint effusion identified. Jakob Agarwal MD Objective Remarks GENERAL: This is a well-nourished, well-developed patient, in no apparent distress. SKIN: Warm and dry. CARDIOVASCULAR: Irregular heart rate without murmurs, gallops, or rubs. RESPIRATORY: Clear to auscultation. Breath sounds equal bilaterally. No wheezes , rales, or rhonchi. GASTROINTESTINAL: Abdomen soft, non-tender, nondistended. Bowel sounds active 4. No guarding. MUSCULOSKELETAL: Extremities without clubbing, cyanosis. Left hip incision area upper portion with improving induration, erythema and edema NEUROLOGICAL: Awake and alert. Oriented to time, place, person. Right-sided weakness. Motor and sensory grossly within normal limits. Normal speech. Procedures Left hip aspiration A/P Problem List: (1) Left hip pain ICD Code: M25.552 Status: Acute (2) Elevated C-reactive protein (CRP) ICD Code: R79.82 Status: Acute (3) Elevated sed rate ICD Code: R70.0 Status: Acute (4) Lactic acid acidosis ICD Code: E87.2 Status: Acute (5) Anticoagulated on Coumadin ICD Code: Z51.81 Status: Chronic (6) Hypertension ICD Code: I10 Status: Chronic (7) Chronic atrial fibrillation ICD Code: I48.2 Status: Chronic (8) Right hemiparesis ICD Code: G81.91 Status: Acute (9) BPH (benign prostatic hyperplasia) ICD Code: N40.0 Status: Chronic (10) History of hemorrhagic stroke with residual hemiparesis ICD Code: I69.359 Status: Chronic (11) S/P total hip arthroplasty ICD Code: Z96.649 Status: Chronic Assessment and Plan Patient is an 81-year-old male with primary medical history of A. fib on Coumadin, hemorrhagic thalamic CVA, HTN who came into the hospital for evaluation of left hip secondary to increasing pain, associated with fevers and chills.\ Suspect severe sepsis Suspect Left hip incision/operative infection Suspect Septic Arthritis - Reports of increasing pain, unable to bear weight, fevers, rigors. - Mild leukocytosis 11.8, ESR 53, CRP 17.50, T bili 1.4, lactic acid 2.2 - suspicion of severe sepsis - Consulted orthopedic Dr. Nugent, recommends aspiration of the joint by IR, broad-spectrum antibiotics. - Pain management with morphine 2 mg IV every 3 hours when necessary for breakthrough pain, [place] 1 5/325mg or [place] 1 10/325mg based on pain scale - Blood cultures x2, follow-up results - UA negative - If aspiration cultures are positive, consider consulting infectious disease for guidance in antibiotic use and duration HTN HLD A. fib, coumadin - supratherapeutic INR - Hold Coumadin for now, supratherapeutic INR 4.3, repeat INR tomorrow. - Continue lisinopril 20 mg daily, Procardia 30 mg daily, Cardura 4 mg twice a day, pravastatin 10 mg daily at bedtime - Clonidine when necessary - Monitor BP trend BPH - Continue home medication Proscar 5 mg daily at bedtime DVT prop patient on Coumadin and supratherapeutic INR Discharge Planning Not stable for discharge Problem Qualifiers (1) S/P total hip arthroplasty: Qualified Code: Z96.642 - Status post total replacement of left hip Brenden Aceves MD Apr 06, 2017 10:08
--- NOTE | 2017-04-06 13:18 | PD.ORT.PN ---
Subjective Post Op Day #: NA Pain Scale: blunted with morphine Range of Motion painful restriction ROM left hip Distance Walked none Objective Vitals Last 72 hours Impressions Hip X-Ray 04/05/17 0000 Signed Impressions: Service Date/Time: Wednesday, April 05, 2017 13:01 - CONCLUSION: 1. No acute process. 2. Status post total left hip replacement. Mane Moss MD Hip Aspiration/Injection 04/05/17 0000 Signed Impressions: Service Date/Time: Wednesday, April 05, 2017 17:50 - CONCLUSION: Uncomplicated aspiration as above. There was no hip joint effusion identified. Jakob Agarwal MD Microbiology Date/Time Procedure Status Source Growth 04/05/17 18:02 Gram Stain - Final Resulted Fluid Synovial Fluid 04/05/17 18:02 Body Fluid Culture Resulted Fluid Synovial Fluid Pending 04/05/17 12:50 Aerobic Blood Culture - Preliminary Resulted Blood Peripheral NO GROWTH IN 1 DAY 04/05/17 12:50 Anaerobic Blood Culture - Preliminary Resulted Blood Peripheral NO GROWTH IN 1 DAY Vital Signs Date Time Temp Pulse Resp B/P Pulse Ox O2 Delivery O2 Flow Rate FiO2 04/06/17 11:05 19 04/06/17 09:56 19 04/06/17 09:55 93 21 04/06/17 08:00 97.7 78 16 114/67 97 04/06/17 04:00 99.3 68 18 109/59 97 04/06/17 00:00 99.4 116 16 156/78 93 04/05/17 20:00 99.3 93 18 130/75 94 I/O 04/05/17 04/05/17 04/05/17 04/06/17 04/06/17 04/06/17 06:59 14:59 22:59 06:59 14:59 22:59 Intake Total 202 ml 260 ml Output Total 600 ml Balance 202 ml -340 ml Intake Oral 260 ml IV Total 202 ml Output Urine Total 600 ml # Bowel Movements 0 Result Diagram: 04/06/1724 04/06/1724 Other Results Laboratory Tests Test 04/05/17 04/06/17 14:10 06:24 Prothrombin Time 50.6 SEC 49.5 SEC (9.8-11.6) (9.8-11.6) Prothromb Time International 4.3 RATIO 4.2 RATIO Ratio Procedures hip aspiration negative Objective Remarks awake, a little confused due to morphine Left Hip: Nothing unusual for 4 weeks post op NAYA except for some swelling and induration. No obvious redness except from tape, incision healed Assessment & Plan Problem List: (1) S/P total hip arthroplasty Assessment and Plan He is seen for Dr. Long. In spite of neg aspiration, hip sepsis probable warfarin has beenDCed.. to give Vit k Patient should be ready for surgery Saturday if indicated Dr. Long taking over Saturday am Discussed with patient and family Fercho Crain MD Apr 06, 2017 13:18
[2017-04-06] MEDS ORDERED: PHYTONADIONE 10 MG/ML VIAL SQ SCH ×2 (13:30→14:00)
[2017-04-06] MEDS ORDERED: WARFARIN SOD 3 MG TAB PO SCH (16:00)
--- NOTE | 2017-04-06 17:42 | EKG ---
Date Performed: 04/05/2017 Time Performed: 16:08:51 PTAGE: 81 years EKG: ATRIAL FIBRILLATION INCOMPLETE RIGHT BUNDLE BRANCH BLOCK ST DEVIATION AND MODERATE T-WAVE A BNORMALITY, CONSIDER ANTEROLATERAL ISCHEMIA Compared to previous tracing, rate has increased. ST-T wa ve changes are more pronounced. Clinical correlation is recommended ABNORMAL ECG PREVIOUS TRACING : 03/04/2017 11.36 DOCTOR: Suman Gallego Interpretating Date/Time 04/06/2017 17:41:14
[2017-04-06] MEDS: VANCOMYCIN INJ 1,250 MG in SODIUM CHLOR 0.9% 250 ML INJ 250 ML IV SCH (17:49)
--- NOTE | 2017-04-06 19:48 | PD.ID.CON ---
History of Present Illness Service ID Consult Requested By Dr Aceves Reason for Consult L hip MSSA infection Primary Care Physician Jakob Guillermo MD Diagnoses: History of Present Illness 81 yo male with NAYA L 4 weeks ago Pt is unable to provide any meningfull history Hx was attempted to be taken in the presence of his nurse Jakob Pt has extreme difficululty recalliing his surgerty, his medical history, name of his surgeron date of surgery, even allergic reactions history This was a total new finding according to his nurse and Dr Paez was immediately notidied around 1920 Chart wasfurther reviewed According to other providors notes: Patient is status post left total hip arthroplasty per Dr. Long 03/12/17, went to rehabilitation and did well and was sent home with home health care. 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 Maternal medical history significant for lung cancer. Social History Patient is . Occasional alcohol use Denies current tobacco use, quit smoking 1981 Denies illicit drug use Physical Exam Vital Signs Vital Signs Date Time Temp Pulse Resp B/P Pulse Ox O2 Delivery O2 Flow Rate FiO2 04/06/17 16:00 99.1 82 16 94/59 98 04/06/17 15:33 18 04/06/17 15:10 18 04/06/17 12:00 97.9 87 16 99/53 94 04/06/17 09:55 93 21 04/06/17 08:50 89 04/06/17 08:00 97.7 78 16 114/67 97 04/06/17 04:00 99.3 68 18 109/59 97 04/06/17 00:00 99.4 116 16 156/78 93 04/05/17 20:00 99.3 93 18 130/75 94 Physical Exam CONSTITUTIONAL/GENERAL: This is an adequately nourished patient, in no apparent distress. TUBES/LINES/DRAINS: SKIN: No jaundice, rashes, or lesions. Ecchymoses on upper extremities. No wounds seen anteriorly. Skin temperature appropriate. Not diaphoretic. HEAD: Atraumatic. Normocephalic. EYES: Pupils equal and round and reactive. Extraocular motions intact. No scleral icterus. No injection or drainage. Fundi not examined. ENT: Hearing grossly normal. Nose without bleeding or purulent drainage. Throat without visible erythema, exudates, masses, or lesions. NECK: Trachea midline. Supple, nontender. CARDIOVASCULAR: Regular rate and rhythm without murmurs, gallops, or rubs. No JVD. Peripheral pulses symmetric. RESPIRATORY/CHEST: Symmetric, unlabored respirations. Clear to auscultation. Breath sounds equal bilaterally. No wheezes, rales, or rhonchi. GASTROINTESTINAL: Abdomen soft, non-tender, nondistended. No hepato-splenomegaly , or palpable masses. No guarding. Bowel sounds present. GENITOURINARY: Without palpable bladder distension. MUSCULOSKELETAL: Extremities without clubbing, cyanosis, or edema. L hip incision with stirry strips inp place, monimal serous d/c + induration around incision + some erythema on margins present LYMPHATICS: No palpable cervical or supraclavicular adenopathy. NEUROLOGICAL: Awake and alert. Confused, markedly Oriented x 1-2 Not knowing the date Motor and sensory grossly within normal limits. Follows commands. Expressive apahgia: unable to finish his answers, difficulty to recollect, not focusing on the subject - all this new findings (change within last hour) Moves all extremities. PSYCHIATRIC: No obvious anxiety/depression. no apparent hallucinations or other psychotic thought process. Laboratory Laboratory Tests Test 04/05/17 04/06/17 22:03 06:24 Lactic Acid Level 1.3 White Blood Count 8.8 Red Blood Count 3.41 Hemoglobin 9.7 Hematocrit 29.3 Mean Corpuscular Volume 85.8 Mean Corpuscular Hemoglobin 28.3 Mean Corpuscular Hemoglobin 33.0 Concent Red Cell Distribution Width 14.9 Platelet Count 229 Mean Platelet Volume 7.7 Neutrophils (%) (Auto) 86.4 Lymphocytes (%) (Auto) 4.7 Monocytes (%) (Auto) 8.4 Eosinophils (%) (Auto) 0.1 Basophils (%) (Auto) 0.4 Neutrophils # (Auto) 7.6 Lymphocytes # (Auto) 0.4 Monocytes # (Auto) 0.7 Eosinophils # (Auto) 0.0 Basophils # (Auto) 0.0 CBC Comment DIFF FINAL Differential Comment Prothrombin Time 49.5 Prothromb Time International 4.2 Ratio Sodium Level 135 Potassium Level 4.6 Chloride Level 103 Carbon Dioxide Level 25.5 Anion Gap 7 Blood Urea Nitrogen 18 Creatinine 0.88 Estimat Glomerular Filtration 83 Rate Random Glucose 106 Calcium Level 8.1 Date/Time Procedure Status Source Growth 04/05/17 18:02 Gram Stain - Final Resulted Fluid Synovial Fluid 04/05/17 18:02 Body Fluid Culture - Preliminary Resulted Staphylococcus Aureus 04/05/17 12:50 Aerobic Blood Culture - Preliminary Resulted Blood Peripheral NO GROWTH IN 1 DAY 04/05/17 12:50 Anaerobic Blood Culture - Preliminary Resulted Blood Peripheral NO GROWTH IN 1 DAY Result Diagram: 04/06/17 0624 04/06/17 0624 Imaging Last Impressions Hip X-Ray 04/05/17 0000 Signed Impressions: Service Date/Time: Wednesday, April 05, 2017 13:01 - CONCLUSION: 1. No acute process. 2. Status post total left hip replacement. Mane Moss MD Hip Aspiration/Injection 04/05/17 0000 Signed Impressions: Service Date/Time: Wednesday, April 05, 2017 17:50 - CONCLUSION: Uncomplicated aspiration as above. There was no hip joint effusion identified. Jakob Agarwal MD Assessment and Plan Assessment and Plan Prosthetic L hip infection, staph - early infx MS change - new confusion Afib sp coumadin reversal today ? stroke, ?medications ?sepsis - MS change was confirmed by who talked to him over the [place] and by multiple nurses who attended the pt during the day - Dr Paez was notified about above findings over the phone - she is going to evaluate the pt cont vancomycin dc zosyn fu blood and synovial fluid culture Pt will nee surgical treatment for the infection Neuro consult - dw manager environmental services neurologist over the phone Discussed Condition With Colby Hardwick supervisor propellant charge loading nurse Ashley Resendiz MD Apr 06, 2017 19:48
--- NOTE | 2017-04-06 20:16 | RADRPT ---
EXAM DATE/TIME: 04/06/2017 19:59 [facility] COMPARISON: CT BRAIN W/O CONTRAST, December 08, 2015, 15:50. INDICATIONS : Altered mental status. RADIATION DOSE: 38.83 CTDIvol (mGy) MEDICAL HISTORY : Stroke. Hypertension. Renal calculi. SURGICAL HISTORY : Lumbar fusion. Right parotidectomy. ENCOUNTER: Initial ACUITY: 1 day PAIN SCALE: 0/10 LOCATION: cranial TECHNIQUE: Multiple contiguous axial images were obtained of the head. Using automated exposure control and adj ustment of the mA and/or kV according to patient size, radiation dose was kept as low as reasonably a chievable to obtain optimal diagnostic quality images. DICOM format image data is available electro nically for review and comparison. FINDINGS: CEREBRUM: Encephalomalacia in the left thalamus in the region of prior hemorrhage seen on the study of 6. The ventricles are normal for age. No evidence of midline shift, mass lesion, hemorrhage or acute infarction. No extra-axial fluid collections are seen. POSTERIOR FOSSA: The cerebellum and brainstem are intact. The 4th ventricle is midline. The cerebellopontine angle i s unremarkable. EXTRACRANIAL: The visualized portion of the orbits is intact. SKULL: The calvaria is intact. No evidence of skull fracture. CONCLUSION: Evidence of old insult in the left thalamus. No acute intracranial findings. Karthikeyan Rodrigues MD on April 06, 2017 at 20:13 Board Certified Radiologist. This report was verified electronically.
--- NOTE | 2017-04-06 20:37 | HHI.PR ---
Addendum to Inpatient Note Addendum Reason: Additional Documentation Additional Information Dr. Resendiz , ID , placed a call to Dr. Paez because the patient had demonstrated some confusion and inability to articulate his thoughts during her rounds. An order for stat CT of the head without IV contrast was placed and I was asked to see the patient for evaluation. The patient's arrived about the time that I saw the patient at 2019 on 04/06. Dr. Xiong told me that he got here "by getting in a car and being driven" to the hospital. I asked him what was wrong that caused him to get in a car to come to the hospital and he could not articulate an answer. He is able to answer simple questions and was pleasant and able to follow commands, however he could not provide any medical history and also demonstrated some lethargy during my visit. His was very concerned about this change in his mental condition. Examination-spears, he had no focal neuro deficits and was able to follow multi-step commands like give me a thumbs up with your right hand without any difficulty. He had no drift noted and muscular strength was equal in all 4 extremities. He had no facial droop and while his pupils were somewhat constricted at about 2-3 mm, they were mildly reactive and equal. Blood pressure 121/63, respiratory rate 18, pulse oximetry 97% on room air. The patient demonstrates some mild elevation in heart rate at 92 bpm. Temperature is described below. I discussed placing an order for a brain MRI to rule out ischemic stroke but also discussed the possibility that sepsis may be causing the symptoms with the patient and his . I explained that the CT of the head was negative for acute intracranial findings (old left thalmus changes noted). They agreed with the plan. Brain MRI was negative. The patient was noted to be running a fever of 102.3; the case was discussed with Dr. Paez, my supervising physician, and we ordered blood cultures, CBC, CMP, lactic acid, urinalysis with culture if indicated, and chest x-ray. Zosyn was discontinued and cefepime was started in its place. CBC was not significantly changed from the morning - H&H was a little lower ( 9.7 hgb to 9.0) and will be rechecked in a.m. with CBC. CMP also not significantly changed - patient has chronic hyponatremia - we'll continue to monitor with repeat BMP in a.m. Lactic acid was normal at 0.9. Chest x-ray was negative for acute disease. Blood cultures and urinalysis remain pending. Dr. Resendiz consulted neurology - we appreciate the assistance. We will continue to monitor and follow - fever and infection are most likely cause for AMS. Synovial fluid was + for staph aureus on preliminary result. . Alessandra Rosales [facility] Apr 06, 2017 20:37
[2017-04-06] MEDS: FINASTERIDE 5 MG TAB PO SCH (21:00)
[2017-04-06] MEDS: PRAVASTATIN SOD 10 MG TAB PO SCH (21:00)
[2017-04-06] MEDS: ACETAMINOPHEN 325 MG TAB PO PRN (21:10)
--- NOTE | 2017-04-06 22:03 | RADRPT ---
EXAM DATE/TIME: 04/06/2017 21:38 [facility] COMPARISON: No previous studies available for comparison. INDICATIONS : Confusion. MEDICAL HISTORY : Cerebrovascular disease. Hypertension. Benign prostatic hyperplasia, (BPH) SURGICAL HISTORY : Tonsillectomy. Lumbar laminectomy. Left hip replacement. Right mehnaz-parotidectomy. ENCOUNTER: Subsequent ACUITY: 2 day PAIN SCORE: 0/10 LOCATION: cranial TECHNIQUE: Multiplanar, multisequence MRI of the brain was performed without contrast. FINDINGS: CEREBRUM: The ventricles are normal for age. No evidence of midline shift, mass lesion, hemorrhage or acute in farction. No extraaxial fluid collections are seen. The pituitary gland and suprasellar cistern are normal in configuration. Evidence of remote hemorrhage in the left thalamus. WHITE MATTER: No significant signal abnormalities are seen in the white matter. POSTERIOR FOSSA: Old lacunar infarct in the left cerebellum. DIFFUSION IMAGING: No focal areas of restricted diffusion are seen. No evidence of acute infarction. EXTRACRANIAL: The visualized portions of the orbits and paranasal sinuses are unremarkable. CONCLUSION: No acute intracranial findings. Karthikeyan Rodrigues MD on April 06, 2017 at 21:57 Board Certified Radiologist. This report was verified electronically.
--- NOTE | 2017-04-06 22:23 | HHI.PR ---
Addendum to Inpatient Note Additional Information CT and MRI were negative, but after my visit RN reported a fever up to 103 - will cont broad sepctruma abx and repeat BC STA It is likely that sepsis is the underlying cause for his MS change/confusion dw Ashley Mast MD Apr 06, 2017 22:23
--- NOTE | 2017-04-06 23:00 | RADRPT ---
EXAM DATE/TIME: 04/06/2017 22:36 [facility] COMPARISON: CHEST SINGLE AP, November 24, 2015, 7:41. INDICATIONS : Fever. MEDICAL HISTORY : Hypertension. Stroke. Renal calculi. SURGICAL HISTORY : Right parotidectomy. ENCOUNTER: Initial ACUITY: 1 day PAIN SCORE: 0/10 LOCATION: Bilateral chest FINDINGS: Single AP view of the chest. The lungs are clear. Cardiomediastinal silhouette within normal limits. No evidence of pleural effusion or pneumothorax. CONCLUSION: No acute cardiopulmonary disease identified. Karthikeyan Rodrigues MD on April 06, 2017 at 22:58 Board Certified Radiologist. This report was verified electronically.
[2017-04-06] MEDS: CEFEPIME INJ 2,000 MG in SODIUM CHLORIDE 0.9% INJ 100 ML IV SCH (23:13)
[2017-04-06] MEDS: GABAPENTIN 300 MG CAP PO SCH (23:14)
[2017-04-06 23:21] LABS: AUTOMATED NEUTROPHIL # 7.6 TH/MM3 (1.8-7.7); BASOPHIL % 0.3 % (0.0-2.0); EOSINOPHIL # 0.1 TH/MM3 (0-0.4); HEMO FLAGS DIFF FINAL; LYMPH % 3.9 % (9.0-44.0); LYMPHOCYTE # 0.3 TH/MM3 (1.0-4.8); MEAN CELL VOLUME 85.2 FL (80.0-100.0); MEAN CORPUSCULAR HEMOGLOBIN 28.5 PG (27.0-34.0); MEAN CORPUSCULAR HGB CONC 33.5 % (32.0-36.0); MONO % 6.4 % (0.0-8.0); NEUT % 88.4 % (16.0-70.0); PLATELET COUNT 214 TH/MM3 (150-450); RED BLOOD COUNT 3.17 MIL/MM3 (4.50-5.90); RED CELL DISTRIBUTION WIDTH 15.1 % (11.6-17.2); WHITE BLOOD COUNT 8.6 TH/MM3 (4.0-11.0)
[2017-04-06] MEDS: MULTIVITAMINS/MINERALS THERAPEUTIC TAB PO SCH (23:28)
[2017-04-06] MEDS: METHOCARBAMOL 500 MG TAB PO PRN (23:29)
[2017-04-06 23:47] LABS: ALKALINE PHOSPHATASE 113 U/L (45-117); ALT (GPT) 26 U/L (12-78); ANION GAP 8 MEQ/L (5-15); AST (GOT) 20 U/L (15-37); BICARBONATE 23.7 MEQ/L (21.0-32.0); BLOOD UREA NITROGEN 19 MG/DL (7-18); CHLORIDE 98 MEQ/L (98-107); GLOMERULAR FILTRATION RATE 91 ML/MIN (>89); SODIUM (NA) 130 MEQ/L (136-145); TOTAL BILIRUBIN ADULT 1.1 MG/DL (0.2-1.0)
[2017-04-07] VITALS (9 sets, daily range): BP systolic 105–113; BP diastolic 58–74; PULSE 85–102; RESP 11–18; TEMP 96.7–100; O2SAT 94–96
[2017-04-07] MEDS: ACETAMINOPHEN/HYDROcodone 325 MG/10 MG TAB PO PRN ×2 (03:44→10:24)
[2017-04-07] MEDS: MORPHINE SULFATE 4 MG/ML INJ IV PRN ×2 (04:44→13:39)
[2017-04-07] MEDS: CEFEPIME INJ 2,000 MG in SODIUM CHLORIDE 0.9% INJ 100 ML IV SCH (04:45)
[2017-04-07 06:34] LABS: AUTOMATED NEUTROPHIL # 5.8 TH/MM3 (1.8-7.7); BASOPHIL % 0.4 % (0.0-2.0); EOSINOPHIL # 0.1 TH/MM3 (0-0.4); EOSINOPHIL % 1.5 % (0.0-4.0); HEMATOCRIT 26.1 % (39.0-51.0); HEMO FLAGS DIFF FINAL; LYMPH % 4.3 % (9.0-44.0); LYMPHOCYTE # 0.3 TH/MM3 (1.0-4.8); MEAN CORPUSCULAR HEMOGLOBIN 29.1 PG (27.0-34.0); MEAN CORPUSCULAR HGB CONC 34.3 % (32.0-36.0); MONO % 7.4 % (0.0-8.0); NEUT % 86.4 % (16.0-70.0); PLATELET COUNT 193 TH/MM3 (150-450); RED BLOOD COUNT 3.08 MIL/MM3 (4.50-5.90); RED CELL DISTRIBUTION WIDTH 15.3 % (11.6-17.2); WHITE BLOOD COUNT 6.7 TH/MM3 (4.0-11.0)
[2017-04-07 06:42] LABS: INTERNATIONAL NORMALIZED RATIO 1.8 RATIO; PROTHROMBIN TIME - PATIENT 20.1 SEC (9.8-11.6)
[2017-04-07 06:46] LABS: BLOOD, URINE NEG (NEG); COMMENT (UR) CULT NOT INDICATED; CULTURE IF INDICATED CULT NOT INDICATED; GLUCOSE,URINE NEG (NEG); KETONE, URINE NEG (NEG); MUCUS URINE FEW /lpf (OCC); NITRITE,URINE NEG (NEG); PH, URINE 5.5 (5.0-8.5); SQUAMOUS EPITHELIAL CELL URINE <1 /hpf (0-5); URINE COLOR YELLOW (YELLW/STRAW)
[2017-04-07 06:56] LABS: BICARBONATE 23.1 MEQ/L (21.0-32.0); MAGNESIUM 2.1 MG/DL (1.5-2.5); POTASSIUM 3.9 MEQ/L (3.5-5.1)
[2017-04-07] MEDS: DOCUSATE SODIUM 50 MG/SENNA 8.6 MG TAB PO SCH ×2 (08:50→20:53)
[2017-04-07] MEDS: NIFEdipine 30 MG SUSTAINED RELEASE TAB PO SCH (08:51)
[2017-04-07] MEDS: ASCORBIC ACID 500 MG TAB PO SCH ×2 (08:51→20:52)
[2017-04-07] MEDS: SODIUM CHLORIDE 0.9% FLUSH 10 ML FLUSH IV FLUSH SCH ×2 (08:52→20:54)
[2017-04-07] MEDS: DOXAZOSIN MESYLATE 4 MG TAB PO SCH ×2 (08:54→20:54)
[2017-04-07] MEDS: LISINOPRIL 20 MG TAB PO SCH (09:00)
--- NOTE | 2017-04-07 10:35 | HHI.PR ---
Subjective Remarks Follow-up left hip infection. Events noted. Developmental status changes yesterday related to fever. Today he is alert and oriented 3. Complains of left hip pain controlled with medicines. Seen with . Discussed with RN and ID Objective Vitals Vital Signs Date Time Temp Pulse Resp B/P Pulse Ox O2 Delivery O2 Flow Rate FiO2 04/07/17 04:00 98.6 87 18 106/58 95 04/07/17 00:00 96.7 90 18 105/62 95 04/06/17 21:10 100.7 88 18 116/67 93 04/06/17 20:00 102.3 92 18 121/63 97 04/06/17 19:17 101 04/06/17 16:00 99.1 82 16 94/59 98 04/06/17 15:33 18 04/06/17 15:10 18 04/06/17 12:00 97.9 87 16 99/53 94 I/O 04/06/17 04/06/17 04/06/17 04/07/17 04/07/17 04/07/17 06:59 14:59 22:59 06:59 14:59 22:59 Intake Total 260 ml 340 ml 1523 ml Output Total 600 ml 500 ml 150 ml 150 ml Balance -340 ml -160 ml -150 ml 1373 ml Intake Oral 260 ml 340 ml IV Total 1523 ml Output Urine Total 600 ml 500 ml 150 ml 150 ml # Bowel Movements 0 0 Result Diagram: 04/07/17 0610 04/07/17 0610 Imaging Last Impressions Head CT 04/06/17 0000 Signed Impressions: Service Date/Time: Thursday, April 06, 2017 19:59 - CONCLUSION: Evidence of old insult in the left thalamus. No acute intracranial findings. Karthikeyan Rodrigues MD Chest X-Ray 04/06/17 0000 Signed Impressions: Service Date/Time: Thursday, April 06, 2017 22:36 - CONCLUSION: No acute cardiopulmonary disease identified. Karthikeyan Rodrigues MD Brain MRI 04/06/17 0000 Signed Impressions: Service Date/Time: Thursday, April 06, 2017 21:38 - CONCLUSION: No acute intracranial findings. Karthikeyan Rodrigues MD Hip X-Ray 04/05/17 0000 Signed Impressions: Service Date/Time: Wednesday, April 05, 2017 13:01 - CONCLUSION: 1. No acute process. 2. Status post total left hip replacement. Mane Moss MD Hip Aspiration/Injection 04/05/17 0000 Signed Impressions: Service Date/Time: Wednesday, April 05, 2017 17:50 - CONCLUSION: Uncomplicated aspiration as above. There was no hip joint effusion identified. Jakob Agarwal MD Objective Remarks GENERAL: This is a well-nourished, well-developed patient, in no apparent distress. SKIN: Warm and dry. CARDIOVASCULAR: Irregular heart rate without murmurs, gallops, or rubs. RESPIRATORY: Clear to auscultation. Breath sounds equal bilaterally. No wheezes , rales, or rhonchi. GASTROINTESTINAL: Abdomen soft, non-tender, nondistended. Bowel sounds active 4. No guarding. MUSCULOSKELETAL: Extremities without clubbing, cyanosis. Left hip incision area upper portion with improving induration, erythema and edema NEUROLOGICAL: Awake and alert. Oriented to time, place, person. Mild right sided weakness. Motor and sensory grossly within normal limits. Normal speech. Procedures Left hip aspiration A/P Problem List: (1) Left hip pain ICD Code: M25.552 Status: Acute (2) Elevated C-reactive protein (CRP) ICD Code: R79.82 Status: Acute (3) Elevated sed rate ICD Code: R70.0 Status: Acute (4) Lactic acid acidosis ICD Code: E87.2 Status: Acute (5) Anticoagulated on Coumadin ICD Code: Z51.81 Status: Chronic (6) Hypertension ICD Code: I10 Status: Chronic (7) Chronic atrial fibrillation ICD Code: I48.2 Status: Chronic (8) Right hemiparesis ICD Code: G81.91 Status: Acute (9) BPH (benign prostatic hyperplasia) ICD Code: N40.0 Status: Chronic (10) History of hemorrhagic stroke with residual hemiparesis ICD Code: I69.359 Status: Chronic (11) S/P total hip arthroplasty ICD Code: Z96.649 Status: Chronic Assessment and Plan Patient is an 81-year-old male with primary medical history of A. fib on Coumadin, hemorrhagic thalamic CVA, HTN who came into the hospital for evaluation of left hip secondary to increasing pain, associated with fevers and chills. Severe sepsis 2/2 left hip incision/operative infection - Reports of increasing pain, unable to bear weight, fevers, rigors. - Mild leukocytosis 11.8, ESR 53, CRP 17.50, T bili 1.4, lactic acid 2.2 - Consulted orthopedic Dr. Nugent, recommends aspiration of the joint by IR, broad-spectrum antibiotics. - Pain management with morphine 2 mg IV every 3 hours when necessary for breakthrough pain, [place] 1 5/325mg or [place] 1 10/325mg based on pain scale - Blood cultures x2, follow-up results - UA negative and chest x-ray unremarkable - Wound culture with MSSA. Antibiotics switched to IV Ancef. Will need wound debridement by orthopedic surgery. Septic encephalopathy. Improved. Head CT and MRI of the brain without acute infarct. Neurochecks HTN HLD A. fib, coumadin - was supratherapeutic - Hold Coumadin for now, now subtherapeutic INR 1.8 for possible OR in the morning - Continue lisinopril 20 mg daily, Procardia 30 mg daily, Cardura 4 mg twice a day, pravastatin 10 mg daily at bedtime - Clonidine when necessary - Monitor BP trend BPH - Continue home medication Proscar 5 mg daily at bedtime DVT prop patient INR 1.8 Discharge Planning Not stable for discharge Problem Qualifiers (1) S/P total hip arthroplasty: Qualified Code: Z96.642 - Status post total replacement of left hip Brenden Aceves MD Apr 07, 2017 10:35
--- NOTE | 2017-04-07 11:19 | PD.ORT.PN ---
Subjective Pain Scale: moderate Subjective Remarks fever and chills last night Range of Motion painful Distance Walked none Objective Vitals Vital Signs Date Time Temp Pulse Resp B/P Pulse Ox O2 Delivery O2 Flow Rate FiO2 04/07/17 09:00 94 21 04/07/17 04:00 98.6 87 18 106/58 95 04/07/17 00:00 96.7 90 18 105/62 95 04/06/17 21:10 100.7 88 18 116/67 93 04/06/17 20:00 102.3 92 18 121/63 97 04/06/17 19:17 101 04/06/17 16:00 99.1 82 16 94/59 98 04/06/17 15:33 18 04/06/17 15:10 18 04/06/17 12:00 97.9 87 16 99/53 94 I/O 04/06/17 04/06/17 04/06/17 04/07/17 04/07/17 04/07/17 06:59 14:59 22:59 06:59 14:59 22:59 Intake Total 260 ml 340 ml 1523 ml Output Total 600 ml 500 ml 150 ml 150 ml Balance -340 ml -160 ml -150 ml 1373 ml Intake Oral 260 ml 340 ml IV Total 1523 ml Output Urine Total 600 ml 500 ml 150 ml 150 ml # Bowel Movements 0 0 Result Diagram: 04/07/17 0610 04/07/17 0610 Other Results Laboratory Tests Test 04/07/17 06:10 Prothrombin Time 20.1 SEC (9.8-11.6) Prothromb Time International 1.8 RATIO Ratio Procedures hip aspiration negative Objective Remarks left hip same appearance as yesterday Painful ROM Assessment & Plan Problem List: (1) S/P total hip arthroplasty Assessment and Plan He is seen for Dr. Long. In spite of neg aspiration, hip sepsis probable warfarin has beenDCed.. to give Vit k Patient should be ready for surgery Saturday if indicated Dr. Long taking over Saturday am Discussed with patient and family No change in above determination NPO past midnite Fercho Crain MD Apr 07, 2017 11:19
[2017-04-07] MEDS ORDERED: CHLORHEXIDINE GLUCONATE 4% SOLN 120 ML BTL TOPICAL SCH (12:00)
[2017-04-07] MEDS: ceFAZolin 2 GM PREMIX 50 ML IV SCH ×2 (15:26→20:53)
[2017-04-07] MEDS ORDERED: PHYTONADIONE 10 MG/ML VIAL SQ ONE (16:00)
[2017-04-07] MEDS: ACETAMINOPHEN 325 MG TAB PO PRN (20:52)
[2017-04-07] MEDS: PRAVASTATIN SOD 10 MG TAB PO SCH (20:53)
[2017-04-07] MEDS: FINASTERIDE 5 MG TAB PO SCH (20:53)
[2017-04-07] MEDS: GABAPENTIN 300 MG CAP PO SCH (20:53)
[2017-04-07] MEDS: MULTIVITAMINS/MINERALS THERAPEUTIC TAB PO SCH (20:53)
--- NOTE | 2017-04-07 21:42 | HHI.IDPN ---
Subjective Subjective Remarks fever up to 102.[address]/MRI negastive for stroke MS change resolved afebrile today \blood clx are negative Antibiotics cefazoline Allergies: Coded Allergies: Tetracyclines (Verified Allergy, Severe, Erythema Multiforme, 04/05/17) Objective . Vital Signs Date Time Temp Pulse Resp B/P Pulse Ox O2 Delivery O2 Flow Rate FiO2 04/07/17 16:32 18 04/07/17 16:00 99.0 85 12 112/64 95 04/07/17 13:44 18 04/07/17 12:00 98.6 88 11 113/60 96 04/07/17 11:24 18 04/07/17 09:00 94 21 04/07/17 08:50 93 04/07/17 08:00 97.5 87 11 113/64 95 04/07/17 04:00 98.6 87 18 106/58 95 04/07/17 00:00 96.7 90 18 105/62 95 04/06/17 04/06/17 04/07/17 15:00 23:00 07:00 Intake Total 340 ml 1523 ml Output Total 500 ml 150 ml 150 ml Balance -160 ml -150 ml 1373 ml Intake Oral 340 ml IV Total 1523 ml Output Urine Total 500 ml 150 ml 150 ml # Bowel Movements 0 . Laboratory Tests Test 04/06/17 04/06/17 04/07/17 06:24 23:02 06:10 White Blood Count 8.8 TH/MM3 8.6 TH/MM3 6.7 TH/MM3 Red Blood Count 3.41 MIL/MM3 3.17 MIL/MM3 3.08 MIL/MM3 Hemoglobin 9.7 GM/DL 9.0 GM/DL 9.0 GM/DL Hematocrit 29.3 % 27.0 % 26.1 % Mean Corpuscular Volume 85.8 FL 85.2 FL 85.0 FL Mean Corpuscular Hemoglobin 28.3 PG 28.5 PG 29.1 PG Mean Corpuscular Hemoglobin 33.0 % 33.5 % 34.3 % Concent Red Cell Distribution Width 14.9 % 15.1 % 15.3 % Platelet Count 229 TH/MM3 214 TH/MM3 193 TH/MM3 Mean Platelet Volume 7.7 FL 7.6 FL 8.1 FL Neutrophils (%) (Auto) 86.4 % 88.4 % 86.4 % Lymphocytes (%) (Auto) 4.7 % 3.9 % 4.3 % Monocytes (%) (Auto) 8.4 % 6.4 % 7.4 % Eosinophils (%) (Auto) 0.1 % 1.0 % 1.5 % Basophils (%) (Auto) 0.4 % 0.3 % 0.4 % Neutrophils # (Auto) 7.6 TH/MM3 7.6 TH/MM3 5.8 TH/MM3 Lymphocytes # (Auto) 0.4 TH/MM3 0.3 TH/MM3 0.3 TH/MM3 Monocytes # (Auto) 0.7 TH/MM3 0.6 TH/MM3 0.5 TH/MM3 Eosinophils # (Auto) 0.0 TH/MM3 0.1 TH/MM3 0.1 TH/MM3 Basophils # (Auto) 0.0 TH/MM3 0.0 TH/MM3 0.0 TH/MM3 CBC Comment DIFF FINAL DIFF FINAL DIFF FINAL Differential Comment Laboratory Tests Test 04/05/17 04/06/17 04/06/17 04/07/17 22:03 06:24 23:02 06:10 Lactic Acid Level 1.3 mmol/L 0.9 mmol/L Sodium Level 135 MEQ/L 130 MEQ/L 132 MEQ/L Potassium Level 4.6 MEQ/L 4.0 MEQ/L 3.9 MEQ/L Chloride Level 103 MEQ/L 98 MEQ/L 99 MEQ/L Carbon Dioxide Level 25.5 MEQ/L 23.7 MEQ/L 23.1 MEQ/L Anion Gap 7 MEQ/L 8 MEQ/L 10 MEQ/L Blood Urea Nitrogen 18 MG/DL 19 MG/DL 15 MG/DL Creatinine 0.88 MG/DL 0.81 MG/DL 0.71 MG/DL Estimat Glomerular Filtration 83 ML/MIN 91 ML/MIN 106 ML/MIN Rate Random Glucose 106 MG/DL 132 MG/DL 109 MG/DL Calcium Level 8.1 MG/DL 8.0 MG/DL 8.3 MG/DL Total Bilirubin 1.1 MG/DL Aspartate Amino Transf 20 U/L (AST/SGOT) Alanine Aminotransferase 26 U/L (ALT/SGPT) Alkaline Phosphatase 113 U/L Total Protein 6.1 GM/DL Albumin 2.6 GM/DL Magnesium Level 2.1 MG/DL Microbiology Date/Time Procedure Status Source Growth 04/05/17 12:45 Aerobic Blood Culture - Preliminary Resulted Blood Peripheral NO GROWTH IN 2 DAYS 04/05/17 12:45 Anaerobic Blood Culture - Preliminary Resulted Blood Peripheral NO GROWTH IN 2 DAYS 04/05/17 12:50 Aerobic Blood Culture - Preliminary Resulted Blood Peripheral NO GROWTH IN 2 DAYS 04/05/17 12:50 Anaerobic Blood Culture - Preliminary Resulted Blood Peripheral NO GROWTH IN 2 DAYS 04/05/17 18:02 Gram Stain - Final Complete Fluid Synovial Fluid 04/05/17 18:02 Body Fluid Culture - Final Complete Staphylococcus Aureus 04/06/17 22:23 Aerobic Blood Culture Received Blood Peripheral Pending 04/06/17 22:23 Anaerobic Blood Culture Received Blood Peripheral Pending 04/06/17 23:02 Aerobic Blood Culture - Preliminary Resulted Blood Peripheral NO GROWTH IN 1 DAY 04/06/17 23:02 Anaerobic Blood Culture - Preliminary Resulted Blood Peripheral NO GROWTH IN 1 DAY 04/06/17 23:08 Aerobic Blood Culture - Preliminary Resulted Blood Peripheral NO GROWTH IN 1 DAY 04/06/17 23:08 Anaerobic Blood Culture - Preliminary Resulted Blood Peripheral NO GROWTH IN 1 DAY Imaging Last Impressions Head CT 04/06/17 0000 Signed Impressions: Service Date/Time: Thursday, April 06, 2017 19:59 - CONCLUSION: Evidence of old insult in the left thalamus. No acute intracranial findings. Karthikeyan Rodrigues MD Chest X-Ray 04/06/17 0000 Signed Impressions: Service Date/Time: Thursday, April 06, 2017 22:36 - CONCLUSION: No acute cardiopulmonary disease identified. Karthikeyan Rodrigues MD Brain MRI 04/06/17 0000 Signed Impressions: Service Date/Time: Thursday, April 06, 2017 21:38 - CONCLUSION: No acute intracranial findings. Karthikeyan Rodrigues MD Hip X-Ray 04/05/17 0000 Signed Impressions: Service Date/Time: Wednesday, April 05, 2017 13:01 - CONCLUSION: 1. No acute process. 2. Status post total left hip replacement. Mane Moss MD Hip Aspiration/Injection 04/05/17 0000 Signed Impressions: Service Date/Time: Wednesday, April 05, 2017 17:50 - CONCLUSION: Uncomplicated aspiration as above. There was no hip joint effusion identified. Jakob Agarwal MD Physical Exam CONSTITUTIONAL/GENERAL: This is an adequately nourished patient, in no apparent distress. TUBES/LINES/DRAINS: SKIN: No jaundice, rashes, or lesions. Ecchymoses on upper extremities. No wounds seen anteriorly. Skin temperature appropriate. Not diaphoretic. vCARDIOVASCULAR: Regular rate and rhythm without murmurs, gallops, or rubs. No JVD. Peripheral pulses symmetric. RESPIRATORY/CHEST: Symmetric, unlabored respirations. Clear to auscultation. Breath sounds equal bilaterally. No wheezes, rales, or rhonchi. GASTROINTESTINAL: Abdomen soft, non-tender, nondistended. No hepato-splenomegaly , or palpable masses. No guarding. Bowel sounds present. GENITOURINARY: Without palpable bladder distension. MUSCULOSKELETAL: Extremities without clubbing, cyanosis, or edema. L hip incision with stirry strips inp place, minimal serous d/c + induration around incision + some erythema on margins present NEUROLOGICAL: Awake and alert. Lucid Oriented x 3 clear speech Motor and sensory grossly within normal limits. Follows commands. Moves all extremities. PSYCHIATRIC: No obvious anxiety/depression. no apparent hallucinations or other psychotic thought process. Assessment & Plan Remarks Prosthetic L hip infection, MSSA Fever - likley 2/2 prosthetic joint infx MS change - 2/2 infected NAYA , resolved cont cefazoline fu blood clx untill final agree with plan for surgery (for tomorrow) dw Gaudencio Aceves, Maria Victoria Resendiz,Ashley Oreilly MD Apr 07, 2017 21:42
[2017-04-08] VITALS: BP 114/69; PULSE 90; RESP 17; TEMP 98.6; O2SAT 95
[2017-04-08] MEDS: ceFAZolin 2 GM PREMIX 50 ML IV SCH ×3 (06:12→22:29)
[2017-04-08] MEDS: MORPHINE SULFATE 4 MG/ML INJ IV PRN ×3 (06:18→16:20)
--- NOTE | 2017-04-08 07:05 | HHI.PR ---
Review/Management Daily Summary 04/08 doing well neuro spears exam normal, mri brain normal awaiting ortho care resolved encephalopathy consulted dictated yesterday am but not in emr yet! will follow peripherally Subjective Subjective Comments No acute events reported No headache No chest pain No dyspnea Active Medications Current Medications Medications (Trade) Dose Ordered Sig/Lesli Route Start Time Stop Time Status Last Admin (Cardura) 4 mg BID PO 04/05/17 21:00 (Proscar) 5 mg HS PO 04/05/17 21:00 (Neurontin) 300 mg HS PO 04/05/17 21:00 04/07/17 20:53 (Prinivil) 20 mg DAILY PO 04/06/17 09:00 (Procardia Xl) 30 mg DAILY PO 04/06/17 09:00 04/07/17 08:51 (Pravachol) 10 mg HS PO 04/05/17 21:00 04/07/17 20:53 (Vitamin C) 1,000 mg BID PO 04/05/17 21:00 04/07/17 20:52 (Robaxin) 750 mg Q4H PRN PO 04/05/17 15:30 04/06/17 23:29 (Theragran M Tab) 1 tab HS PO 04/05/17 21:00 04/07/17 20:53 (Vasotec Inj) 1.25 mg Q6H PRN IV 04/05/17 14:45 (Catapres) 0.1 mg Q6H PRN PO 04/05/17 14:45 (NS Flush) 2 ml UNSCH PRN IV FLUSH 04/05/17 14:45 04/07/17 04:44 (NS Flush) 2 ml BID IV FLUSH 04/05/17 21:00 04/07/17 20:54 (Tylenol) 650 mg Q4H PRN PO 04/05/17 14:45 04/07/17 20:52 (Zofran Inj) 4 mg Q6H PRN IVP 04/05/17 14:45 (Tylenol) 650 mg Q6H PRN PO 04/05/17 14:45 (Morphine Inj) 2 mg Q3H PRN IV 04/05/17 14:45 04/08/17 06:18 (Narcan Inj) 0.4 mg UNSCH PRN IV 04/05/17 14:45 (Addis-Colace) 1 tab BID PO 04/05/17 21:00 04/07/17 20:53 (Milk Of Magnesia Liq) 30 ml Q12H PRN PO 04/05/17 14:45 (Senokot) 17.2 mg Q12H PRN PO 04/05/17 14:45 (Lactulose Liq) 30 ml DAILY PRN PO 04/05/17 14:45 Chlorhexidine Gluconate 1 applic 1 applic ONCE TOPICAL 04/07/17 12:00 04/11/17 11:59 (Ancef 2 Gm Premix) 50 ml @ 150 mls/hr Q8H IV 04/07/17 14:00 04/08/17 06:12 (Roxicodone) 10 mg Q4H PRN PO 04/07/17 12:45 04/07/17 22:36 (Roxicodone) 5 mg Q4H PRN PO 04/07/17 12:45 Allergies Allergies Coded Allergies Tetracyclines (Verified Allergy, Severe, Erythema Multiforme, 04/05/17) Exam I&O / VS 04/07/17 04/07/17 04/08/17 15:00 23:00 07:00 Intake Total 1720 ml 240 ml 100 ml Output Total 250 ml 300 ml Balance 1720 ml -10 ml -200 ml Intake Oral 1720 ml 240 ml 0 ml IV Total 100 ml Output Urine Total 250 ml 300 ml # Voids 3 Vital Signs Date Time Temp Pulse Resp B/P Pulse Ox O2 Delivery O2 Flow Rate FiO2 04/08/17 00:00 98.6 90 17 114/69 95 04/07/17 20:00 100.0 102 17 112/74 96 04/07/17 16:32 18 04/07/17 16:00 99.0 85 12 112/64 95 04/07/17 13:44 18 04/07/17 12:00 98.6 88 11 113/60 96 04/07/17 11:24 18 04/07/17 09:00 94 21 04/07/17 08:50 93 04/07/17 08:00 97.5 87 11 113/64 95 Respiratory: Lungs CTA, Non-labored respirations, BS equal Cardiology: Normal rate, Regular Rhythm Musculoskeletal: Swelling Objective Micro and Labs Date/Time Procedure Status Source Growth 04/06/17 23:08 Aerobic Blood Culture - Preliminary Resulted Blood Peripheral NO GROWTH IN 1 DAY 04/06/17 23:08 Anaerobic Blood Culture - Preliminary Resulted Blood Peripheral NO GROWTH IN 1 DAY 04/06/17 22:23 Aerobic Blood Culture Received Blood Peripheral Pending 04/06/17 22:23 Anaerobic Blood Culture Received Blood Peripheral Pending 04/05/17 18:02 Gram Stain - Final Complete Fluid Synovial Fluid 04/05/17 18:02 Body Fluid Culture - Final Complete Staphylococcus Aureus Marcella Polanco MD Apr 08, 2017 07:05
[2017-04-08 07:20] LABS: INTERNATIONAL NORMALIZED RATIO 1.2 RATIO; PROTHROMBIN TIME - PATIENT 12.8 SEC (9.8-11.6)
[2017-04-08 08:00] VITALS: BP 124/71; PULSE 90; RESP 18; TEMP 99.1; O2SAT 92
--- NOTE | 2017-04-08 08:12 | MB ---
cc: MARTHA PALMER M.D. 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 I spoke to Dr. Resendiz last evening. She apparently found the patient to be confused and that was reportedly different from his baseline. The patient went for CT and MRI of the brain which were negative for any acute process. This morning he seems to be significantly improved. He was found to have high fever and diagnosis is sepsis. The patient came in on 04/05 because of left hip pain and apparent septic joint disease. 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 He has been on Coumadin for a number of years for atrial fibrillation. History of hypertension and laminectomy, lumbar spine. NEUROLOGIC EXAMINATION Exam showed the patient to be awake, alert, oriented. He seems to be expressing himself reasonably well this morning. Following commands promptly. Visual daniel were full. There is minimal or no right-sided weakness. Reflexes were 1+ throughout. Plantar response is flexor. LABORATORY DATA Includes a white count 6.7, hemoglobin 9.0, sed rate 53. Sodium 132, glucose 109, otherwise normal chemistry. Calcium 8.3. His INR two days ago was 4.3, yesterday 4.2 and today 1.8. He received vitamin K yesterday to reverse anticoagulation. ASSESSMENT 1. Metabolic encephalopathy. 2. Prior stroke, left thalamic bleed. 3. Atrial fibrillation, chronic anticoagulation. 4. INR reversal yesterday. Depending upon the management by other treating physicians, would consider heparin therapy until a few hours before procedure is carried out, when anticoagulation could be discontinued. He seems to be back to baseline. It is less likely that he had TIA yesterday to explain his acute confusional episode. Thank you for asking us to assist in his care. MD JV Gabriel/DERRICK /8:01 AM /8:10 AM
[2017-04-08] MEDS: LISINOPRIL 20 MG TAB PO SCH (08:52)
[2017-04-08] MEDS: DOXAZOSIN MESYLATE 4 MG TAB PO SCH ×2 (08:52→22:29)
[2017-04-08] MEDS: DOCUSATE SODIUM 50 MG/SENNA 8.6 MG TAB PO SCH ×2 (08:52→22:27)
[2017-04-08] MEDS: NIFEdipine 30 MG SUSTAINED RELEASE TAB PO SCH (08:52)
[2017-04-08] MEDS: ASCORBIC ACID 500 MG TAB PO SCH ×2 (08:53→22:27)
[2017-04-08] MEDS: SODIUM CHLORIDE 0.9% FLUSH 10 ML FLUSH IV FLUSH SCH ×2 (09:02→21:00)
[2017-04-08] MEDS ORDERED: HEPARIN-D5W 25,000 U/250 ML 250 ML IV SCH (11:00)
--- NOTE | 2017-04-08 11:01 | HHI.PR ---
Subjective Remarks Follow-up of Michael. fib. Denies chest pain, palpitations shortness of breath. INR 1.3. Agrees with heparin drip. Seen with . Discussed with RN, obtain clearance from orthopedic surgery before starting heparin drip. Objective Vitals Vital Signs Date Time Temp Pulse Resp B/P Pulse Ox O2 Delivery O2 Flow Rate FiO2 04/08/17 08:00 99.1 90 18 124/71 92 04/08/17 00:00 98.6 90 17 114/69 95 04/07/17 20:21 96 04/07/17 20:21 87 04/07/17 20:00 100.0 102 17 112/74 96 04/07/17 16:32 18 04/07/17 16:00 99.0 85 12 112/64 95 04/07/17 13:44 18 04/07/17 12:00 98.6 88 11 113/60 96 04/07/17 11:24 18 I/O 04/07/17 04/07/17 04/07/17 04/08/17 04/08/17 04/08/17 07:00 15:00 23:00 07:00 15:00 23:00 Intake Total 1523 ml 1720 ml 240 ml 100 ml Output Total 150 ml 250 ml 300 ml Balance 1373 ml 1720 ml -10 ml -200 ml Intake Oral 1720 ml 240 ml 0 ml IV Total 1523 ml 100 ml Output Urine Total 150 ml 250 ml 300 ml # Voids 3 Result Diagram: 04/07/17 0610 04/07/17 0610 Objective Remarks GENERAL: This is a well-nourished, well-developed patient, in no apparent distress. SKIN: Warm and dry. CARDIOVASCULAR: Irregular heart rate without murmurs, gallops, or rubs. RESPIRATORY: Clear to auscultation. Breath sounds equal bilaterally. No wheezes , rales, or rhonchi. GASTROINTESTINAL: Abdomen soft, non-tender, nondistended. Bowel sounds active 4. No guarding. MUSCULOSKELETAL: Extremities without clubbing, cyanosis. Left hip incision area upper portion with improving induration, erythema and edema NEUROLOGICAL: Awake and alert. Oriented to time, place, person. Mild right sided weakness. Motor and sensory grossly within normal limits. Normal speech. Procedures Left hip aspiration A/P Problem List: (1) Left hip pain ICD Code: M25.552 Status: Acute (2) Elevated C-reactive protein (CRP) ICD Code: R79.82 Status: Acute (3) Elevated sed rate ICD Code: R70.0 Status: Acute (4) Lactic acid acidosis ICD Code: E87.2 Status: Acute (5) Anticoagulated on Coumadin ICD Code: Z51.81 Status: Chronic (6) Hypertension ICD Code: I10 Status: Chronic (7) Chronic atrial fibrillation ICD Code: I48.2 Status: Chronic (8) Right hemiparesis ICD Code: G81.91 Status: Acute (9) BPH (benign prostatic hyperplasia) ICD Code: N40.0 Status: Chronic (10) History of hemorrhagic stroke with residual hemiparesis ICD Code: I69.359 Status: Chronic (11) S/P total hip arthroplasty ICD Code: Z96.649 Status: Chronic Assessment and Plan Patient is an 81-year-old male with primary medical history of A. fib on Coumadin, hemorrhagic thalamic CVA, HTN who came into the hospital for evaluation of left hip secondary to increasing pain, associated with fevers and chills. Severe sepsis 2/2 left hip incision/operative infection - Reports of increasing pain, unable to bear weight, fevers, rigors. - Mild leukocytosis 11.8, ESR 53, CRP 17.50, T bili 1.4, lactic acid 2.2 - Consulted orthopedic Dr. Nugent, recommends aspiration of the joint by IR, broad-spectrum antibiotics. - Pain management with morphine 2 mg IV every 3 hours when necessary for breakthrough pain, oxycodone - Blood cultures x2, follow-up results - UA negative and chest x-ray unremarkable - Wound culture with MSSA. Antibiotics switched to IV Ancef. Will need surgery by orthopedic surgery. Septic encephalopathy. Improved. Head CT and MRI of the brain without acute infarct. Neurochecks HTN HLD A. fib, coumadin - was supratherapeutic - Hold Coumadin for now, now subtherapeutic INR 1.3. Start heparin drip if okay with orthopedic surgery - Continue lisinopril 20 mg daily, Procardia 30 mg daily, Cardura 4 mg twice a day, pravastatin 10 mg daily at bedtime - Clonidine when necessary - Monitor BP trend BPH - Continue home medication Proscar 5 mg daily at bedtime DVT proph with heparin drip Discharge Planning Not stable for discharge Problem Qualifiers (1) S/P total hip arthroplasty: Qualified Code: Z96.642 - Status post total replacement of left hip Brenden Aceves MD Apr 08, 2017 11:01
[2017-04-08 12:00] VITALS: BP 117/64; PULSE 98; RESP 17; TEMP 98.6; O2SAT 91
[2017-04-08 16:00] VITALS: BP 127/74; PULSE 94; RESP 17; TEMP 97.9; O2SAT 96
[2017-04-08] MEDS ORDERED: PHARMACY ORDERED LAB ONE (17:45)
[2017-04-08 18:17] VITALS: O2SAT 96
[2017-04-08 18:37] LABS: HEMATOCRIT 27.3 % (39.0-51.0); MEAN CELL VOLUME 85.1 FL (80.0-100.0); MEAN CORPUSCULAR HGB CONC 32.9 % (32.0-36.0); PLATELET COUNT 198 TH/MM3 (150-450); RED CELL DISTRIBUTION WIDTH 15.1 % (11.6-17.2); REVIEW FLAG FINAL; WHITE BLOOD COUNT 5.1 TH/MM3 (4.0-11.0)
[2017-04-08 19:04] LABS: APTT (PATIENT) 33.9 SEC (24.3-30.1); INTERNATIONAL NORMALIZED RATIO 1.1 RATIO; PROTHROMBIN TIME - PATIENT 12.4 SEC (9.8-11.6)
[2017-04-08 20:00] VITALS: BP 121/67; PULSE 94; RESP 18; TEMP 100; O2SAT 95
[2017-04-08] MEDS: FINASTERIDE 5 MG TAB PO SCH (21:00)
[2017-04-08] MEDS: WARFARIN SOD 3 MG TAB PO SCH (22:26)
[2017-04-08] MEDS: MULTIVITAMINS/MINERALS THERAPEUTIC TAB PO SCH (22:27)
[2017-04-08] MEDS: GABAPENTIN 300 MG CAP PO SCH (22:27)
[2017-04-08] MEDS: ACETAMINOPHEN 325 MG TAB PO PRN (22:27)
[2017-04-08] MEDS: PRAVASTATIN SOD 10 MG TAB PO SCH (22:28)
[2017-04-09] VITALS (8 sets, daily range): BP systolic 110–120; BP diastolic 65–89; PULSE 78–93; RESP 17–19; TEMP 96.8–99; O2SAT 95–99
[2017-04-09 02:38] LABS: APTT (PATIENT) 38.8 SEC (24.3-30.1); INTERNATIONAL NORMALIZED RATIO 1.1 RATIO; PROTHROMBIN TIME - PATIENT 12.4 SEC (9.8-11.6)
[2017-04-09] MEDS: ceFAZolin 2 GM PREMIX 50 ML IV SCH ×3 (05:19→21:57)
[2017-04-09] MEDS: DOCUSATE SODIUM 50 MG/SENNA 8.6 MG TAB PO SCH ×2 (07:35→21:57)
[2017-04-09] MEDS: LISINOPRIL 20 MG TAB PO SCH (07:35)
[2017-04-09] MEDS: DOXAZOSIN MESYLATE 4 MG TAB PO SCH ×2 (07:36→21:59)
[2017-04-09] MEDS: NIFEdipine 30 MG SUSTAINED RELEASE TAB PO SCH (07:36)
[2017-04-09] MEDS: ASCORBIC ACID 500 MG TAB PO SCH ×2 (07:38→21:57)
[2017-04-09] MEDS: SODIUM CHLORIDE 0.9% FLUSH 10 ML FLUSH IV FLUSH SCH ×2 (07:42→21:00)
[2017-04-09] MEDS: MORPHINE SULFATE 4 MG/ML INJ IV PRN ×2 (08:02→12:46)
--- NOTE | 2017-04-09 09:19 | HHI.PR ---
Subjective Remarks Follow-up left hip wound infection. Improving left hip pain but still significant requiring Lortab. Tmax 100. Patient agrees with orthopedic surgeons plan of medical management at this time. He also agrees with anticoagulation and switch to Lovenox Objective Vitals Vital Signs Date Time Temp Pulse Resp B/P Pulse Ox O2 Delivery O2 Flow Rate FiO2 04/09/17 04:00 96.9 78 18 112/70 95 04/09/17 00:00 98.0 81 18 111/69 95 04/08/17 20:00 100.0 94 18 121/67 95 04/08/17 18:17 96 21 04/08/17 16:00 97.9 94 17 127/74 96 04/08/17 12:00 98.6 98 17 117/64 91 I/O 04/08/17 04/08/17 04/08/17 04/09/17 04/09/17 04/09/17 07:00 15:00 23:00 07:00 15:00 23:00 Intake Total 100 ml 400 ml 120 ml 452 ml Output Total 300 ml 350 ml 975 ml Balance -200 ml 50 ml 120 ml -523 ml Intake Oral 0 ml 400 ml 120 ml 240 ml IV Total 100 ml 212 ml Output Urine Total 300 ml 350 ml 975 ml # Voids 2 1 # Bowel Movements 0 0 0 Result Diagram: 04/08/17 1803 04/07/17 0610 Objective Remarks GENERAL: This is a well-nourished, well-developed patient, in no apparent distress. SKIN: Warm and dry. CARDIOVASCULAR: Irregular heart rate without murmurs, gallops, or rubs. RESPIRATORY: Clear to auscultation. Breath sounds equal bilaterally. No wheezes , rales, or rhonchi. GASTROINTESTINAL: Abdomen soft, non-tender, nondistended. Bowel sounds active 4. No guarding. MUSCULOSKELETAL: Extremities without clubbing, cyanosis. Left hip incision area upper portion with improving induration, resolved erythema NEUROLOGICAL: Awake and alert. Oriented to time, place, person. Mild right sided weakness. Motor and sensory grossly within normal limits. Normal speech. Procedures Left hip aspiration A/P Problem List: (1) Left hip pain ICD Code: M25.552 Status: Acute (2) Elevated C-reactive protein (CRP) ICD Code: R79.82 Status: Acute (3) Elevated sed rate ICD Code: R70.0 Status: Acute (4) Lactic acid acidosis ICD Code: E87.2 Status: Acute (5) Anticoagulated on Coumadin ICD Code: Z51.81 Status: Chronic (6) Hypertension ICD Code: I10 Status: Chronic (7) Chronic atrial fibrillation ICD Code: I48.2 Status: Chronic (8) Right hemiparesis ICD Code: G81.91 Status: Acute (9) BPH (benign prostatic hyperplasia) ICD Code: N40.0 Status: Chronic (10) History of hemorrhagic stroke with residual hemiparesis ICD Code: I69.359 Status: Chronic (11) S/P total hip arthroplasty ICD Code: Z96.649 Status: Chronic Assessment and Plan Patient is an 81-year-old male with primary medical history of A. fib on Coumadin, hemorrhagic thalamic CVA, HTN who came into the hospital for evaluation of left hip secondary to increasing pain, associated with fevers and chills. Severe sepsis 2/2 left hip incision/operative infection - Improving MAXIMUM TEMPERATURE 100. Orthotics surgery recommends medical management at this time - Pain management with morphine 2 mg IV every 3 hours when necessary for breakthrough pain, oxycodone - Blood cultures x2, follow-up results negative to date - UA negative and chest x-ray unremarkable - Wound culture with MSSA. Antibiotics switched to IV Ancef. We'll of recommendations from infectious disease Septic encephalopathy. Improved. Head CT and MRI of the brain without acute infarct. Neurochecks HTN HLD A. fib, coumadin - - Subtherapeutic restarted Coumadin bridged with heparin drip/ Lovenox - Continue lisinopril 20 mg daily, Procardia 30 mg daily, Cardura 4 mg twice a day, pravastatin 10 mg daily at bedtime - Clonidine when necessary - Monitor BP trend BPH - Continue home medication Proscar 5 mg daily at bedtime DVT proph with heparin drip/Lovenox Discharge Planning Not stable for discharge Problem Qualifiers (1) S/P total hip arthroplasty: Qualified Code: Z96.642 - Status post total replacement of left hip Brenden Aceves MD Apr 09, 2017 09:19
--- NOTE | 2017-04-09 09:21 | HHI.FF ---
Face to Face Verification Diagnosis: (1) Left hip pain Physical Therapy Order: Evaluate and Treat, Improve ambulation, Strength and gait training Home Health Nursing Order: Signs/symptoms of disease process Medication education-adverse effect Wound care and dressing changes Nursing assessment with vital signs I have seen patient Artie Xiong on 04/09/17. My clinical findings support the need for the requested home health care services because: Deconditioned w/ increased weakness I certify that my clinical findings support that this patient is homebound because: Unsteady gait/balance Unsafe to leave home unassisted Brenden Aceves MD Apr 09, 2017 09:21
--- NOTE | 2017-04-09 09:21 | HHI.DCPOC ---
Discharge Care Plan Diagnosis: (1) Left hip pain Your Health Problems Are: Difficulty with ADL Exercise Tolerance Goals to Promote Your Health * To prevent worsening of your condition and complications * To maintain your health at the optimal level Directions to Meet Your Goals Take your medications as prescribed Follow your dietary instruction Follow activity as directed Keep your appointments as scheduled Take your immunizations and boosters as scheduled If your symptoms worsen call your PCP, if no PCP go to Urgent Care Center or Emergency Room Smoking is Dangerous to Your Health. Avoid second hand smoke Call the 24-hour hour crisis hotline for domestic abuse at Brenden Aceves MD Apr 09, 2017 09:21
[2017-04-09] MEDS ORDERED: ENOX100P SQ (09:24)
[2017-04-09] MEDS ORDERED: OXYC-392 PO (09:24)
[2017-04-09 10:33] LABS: APTT (PATIENT) 34.3 SEC (24.3-30.1)
--- NOTE | 2017-04-09 14:49 | MB ---
cc: NIA GARDUNO M.D. DATE OF CONSULTATION: 04/09/2017 REASON FOR CONSULTATION: The patient is an 81-year-old white male well-known to me having been recently admitted to 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 Pain of his left hip and gait disturbance. At that time he underwent a left total hip arthroplasty which was completed in an uncomplicated manner. The patient noted to have tolerated his operative procedure well and his initial postoperative course being unremarkable. He was subsequently transferred to the [facility] where he continue with his mobilization process with favorable progress being noted. Thereafter, he was discharged home and was continuing his outpatient therapy until approximately April 04 when he reports experiencing the onset of pain about his left hip area. He was evaluated by the visiting nurse at that time and apparently was advised to continue with conservative management. His pain persisted thereafter in the following day he was seen in the emergency room of [facility] and subsequently admitted to the hospital for further disposition apparently there was concern at that time with regards to the patient developing an infection about his hip area. His initial laboratory studies noted and elevated white count of 11.8 as well as an elevated sedimentation rate at 53 and a C-reactive protein of 17.5. The patient subsequently underwent a fluoroscopic guided aspiration of his left hip the day following his admission to the hospital with the initial studies reporting a negative gram stain for any organisms seen and only a rare White blood cells. A subsequent fluid culture did note rare growth of staph aureus but no anaerobes were isolated. Associated blood cultures were also reported as being negative for any evidence of growth within the initial three days. Following admission to the hospital the patient was started on intravenous antibiotics and follow up laboratory studies actually revealed his white count to gradually diminished to 8.8 the day following admission to hospital and as of the April 07 had dropped even further to 6.7. The patient was noted to have an early temperature spike but subsequently has been maintained at an afebrile status. Because of his current findings home orthopedic evaluation was requested of the previous treating surgeon. I had the opportunity of seeing the patient and his hospital room on the date of the consultation and at that time he was resting comfortably without any significant pain involving his hip area. He advised that he had received therapy earlier in the day and was able to conform to ambulatory activities, weightbearing to tolerance without any significant difficulty or discomfort being described. PHYSICAL EXAMINATION: DIRECTED EXAMINATION: Physical examination of his surgical wound about the left hip revealed it to be intact. There was no associated erythema, fluctuance significant tenderness or palpable deformity. No evidence of drainage the wound did appear totally benign and healing in a satisfactory fashion in a supine orientation both active and passive motion about the left hip elicited minimal discomfort towards the extremes of motion that were felt to be consistent with his recent history of surgery. There was no sensation of instability. Distal sensory was grossly intact. CLINICAL IMPRESSION: The patient was not manifesting a clinical picture of a septic hip at this time. PLAN I had a rather lengthy and detailed discussion with the patient in the presence of his following the consultation examination, I did indicate to him that the initial impression was not that of a septic process involving his hip, following recent surgery but I was at a loss to explain his initial abnormal lab studies. Given the fact that he has demonstrated a trend of improvement since admission to the hospital. I have indicated that I did not feel that would be a necessity at this time to undergo any additional operative intervention. I have recommended to the patient that he continued to be covered prophylactically with antibiotics for at least an additional 7-10 days, possibly being switched from intravenous to oral as might be recommended per his admitting physician. When cleared from medical standpoint he should be able to return home and continue his postoperative rehabilitation. I have indicated to the patient. I would see him in follow-up disposition as scheduled in the office or earlier evaluation should any recurrent or progressive symptoms being noted that might necessitate an alteration in the plan of treatment. The patient was in full agreement and understanding to this recommendation. I appreciate the opportunity of seeing Dr. Xiong at this time and thank you for the consultation. MD EBONI Perez/arnold /1:31 PM /1:43 PM
--- NOTE | 2017-04-09 17:18 | HHI.IDPN ---
Subjective Subjective Remarks no fever blood clx are negative Antibiotics cefazoline Allergies: Coded Allergies: doxycycline (Unverified Allergy, Severe, Erythema Multiforme, 04/09/17) minocycline (Unverified Allergy, Severe, Erythema Multiforme, 04/09/17) tigecycline (Unverified Allergy, Severe, Erythema Multiforme, 04/09/17) Objective . Vital Signs Date Time Temp Pulse Resp B/P Pulse Ox O2 Delivery O2 Flow Rate FiO2 04/09/17 16:00 98.9 93 19 120/66 95 04/09/17 12:57 18 04/09/17 12:00 96.8 87 17 110/89 95 04/09/17 10:28 99 21 04/09/17 08:00 99.0 87 19 119/78 96 04/09/17 04:00 96.9 78 18 112/70 95 04/09/17 00:00 98.0 81 18 111/69 95 04/08/17 20:00 100.0 94 18 121/67 95 04/08/17 18:17 96 21 04/08/17 04/08/17 04/09/17 15:00 23:00 07:00 Intake Total 400 ml 120 ml 452 ml Output Total 350 ml 975 ml Balance 50 ml 120 ml -523 ml Intake Oral 400 ml 120 ml 240 ml IV Total 212 ml Output Urine Total 350 ml 975 ml # Voids 2 1 # Bowel Movements 0 0 0 . Laboratory Tests Test 04/08/17 18:03 White Blood Count 5.1 TH/MM3 Red Blood Count 3.20 MIL/MM3 Hemoglobin 9.0 GM/DL Hematocrit 27.3 % Mean Corpuscular Volume 85.1 FL Mean Corpuscular Hemoglobin 28.0 PG Mean Corpuscular Hemoglobin 32.9 % Concent Red Cell Distribution Width 15.1 % Platelet Count 198 TH/MM3 Mean Platelet Volume 7.9 FL Microbiology Date/Time Procedure Status Source Growth 04/06/17 22:23 Aerobic Blood Culture Received Blood Peripheral Pending 04/06/17 22:23 Anaerobic Blood Culture Received Blood Peripheral Pending 04/06/17 23:02 Aerobic Blood Culture - Preliminary Resulted Blood Peripheral NO GROWTH IN 3 DAYS 04/06/17 23:02 Anaerobic Blood Culture - Preliminary Resulted Blood Peripheral NO GROWTH IN 3 DAYS 04/06/17 23:08 Aerobic Blood Culture - Preliminary Resulted Blood Peripheral NO GROWTH IN 3 DAYS 04/06/17 23:08 Anaerobic Blood Culture - Preliminary Resulted Blood Peripheral NO GROWTH IN 3 DAYS Imaging Last Impressions Head CT 04/06/17 0000 Signed Impressions: Service Date/Time: Thursday, April 06, 2017 19:59 - CONCLUSION: Evidence of old insult in the left thalamus. No acute intracranial findings. Karthikeyan Rodrigues MD Chest X-Ray 04/06/17 0000 Signed Impressions: Service Date/Time: Thursday, April 06, 2017 22:36 - CONCLUSION: No acute cardiopulmonary disease identified. Karthikeyan Rodrigues MD Brain MRI 04/06/17 Signed Impressions: Service Date/Time: Thursday, April 06, 2017 21:38 - CONCLUSION: No acute intracranial findings. Karthikeyan Rodrigues MD Hip X-Ray 04/05/17 0000 Signed Impressions: Service Date/Time: Wednesday, April 05, 2017 13:01 - CONCLUSION: 1. No acute process. 2. Status post total left hip replacement. Mane Moss MD Hip Aspiration/Injection 04/05/17 Signed Impressions: Service Date/Time: Wednesday, April 05, 2017 17:50 - CONCLUSION: Uncomplicated aspiration as above. There was no hip joint effusion identified. Jakob Agarwal MD Physical Exam CONSTITUTIONAL/GENERAL: This is an adequately nourished patient, in no apparent distress. TUBES/LINES/DRAINS: SKIN: No jaundice, rashes, or lesions. Ecchymoses on upper extremities. No wounds seen anteriorly. Skin temperature appropriate. Not diaphoretic. vCARDIOVASCULAR: Regular rate and rhythm without murmurs, gallops, or rubs. No JVD. Peripheral pulses symmetric. RESPIRATORY/CHEST: Symmetric, unlabored respirations. Clear to auscultation. Breath sounds equal bilaterally. No wheezes, rales, or rhonchi. GASTROINTESTINAL: Abdomen soft, non-tender, nondistended. No hepato-splenomegaly , or palpable masses. No guarding. Bowel sounds present. GENITOURINARY: Without palpable bladder distension. MUSCULOSKELETAL: Extremities without clubbing, cyanosis, or edema. L hip incision with stirry strips inp place, minimal serous d/c less induration around incision + minimal erythema on margins present Incision is intact but there is some balotting over the hip ? effusion NEUROLOGICAL: Awake and alert. Lucid Oriented x 3 clear speech, but still issues with recalling names and finding words Motor and sensory grossly within normal limits. Follows commands. Moves all extremities. PSYCHIATRIC: No obvious anxiety/depression. no apparent hallucinations or other psychotic thought process. Assessment & Plan Remarks Prosthetic L hip infection, MSSA - confirmed by culture obtained via aspiration Fever - 2/2 prosthetic joint infx : resolved - blood clx remain negative MS change - 2/2 infected NAYA , resolved ? underlying cont cefazoline fu blood clx untill final pt's condition ( prosthetic hip bacterial infection, MSSA) requires combunation treatment including surgery and IV abx. Non surgical treatment is only reserved for pts who are deemed to be extremely poor surgical candidates with high mortality rate, because non surgical approach aw much higher rates of treatment failure dw Martín Crowell Alexandra A. MD Apr 09, 2017 17:17
[2017-04-09] MEDS: FINASTERIDE 5 MG TAB PO SCH (21:00)
[2017-04-09] MEDS: PRAVASTATIN SOD 10 MG TAB PO SCH (21:57)
[2017-04-09] MEDS: MULTIVITAMINS/MINERALS THERAPEUTIC TAB PO SCH (21:57)
[2017-04-09] MEDS: WARFARIN SOD 3 MG TAB PO SCH (21:57)
[2017-04-09] MEDS: GABAPENTIN 300 MG CAP PO SCH (21:57)
[2017-04-09] MEDS: ENOXAPARIN SODIUM 100 MG/ML SYRINGE SQ SCH (21:58)
[2017-04-10] VITALS (7 sets, daily range): BP systolic 110–127; BP diastolic 57–77; PULSE 83–98; RESP 17–20; TEMP 97.7–99.3; O2SAT 95–97
[2017-04-10] MEDS: ceFAZolin 2 GM PREMIX 50 ML IV SCH ×3 (06:38→20:50)
[2017-04-10 08:18] LABS: INTERNATIONAL NORMALIZED RATIO 1.3 RATIO; PROTHROMBIN TIME - PATIENT 14.7 SEC (9.8-11.6)
[2017-04-10] MEDS: ENOXAPARIN SODIUM 100 MG/ML SYRINGE SQ SCH ×2 (08:44→20:48)
[2017-04-10] MEDS: ASCORBIC ACID 500 MG TAB PO SCH ×2 (08:44→20:49)
[2017-04-10] MEDS: LISINOPRIL 20 MG TAB PO SCH (08:44)
[2017-04-10] MEDS: NIFEdipine 30 MG SUSTAINED RELEASE TAB PO SCH (08:44)
[2017-04-10] MEDS: DOCUSATE SODIUM 50 MG/SENNA 8.6 MG TAB PO SCH ×2 (08:44→20:49)
[2017-04-10] MEDS: DOXAZOSIN MESYLATE 4 MG TAB PO SCH ×2 (08:44→20:50)
[2017-04-10] MEDS: SODIUM CHLORIDE 0.9% FLUSH 10 ML FLUSH IV FLUSH SCH ×2 (08:51→21:00)
--- NOTE | 2017-04-10 13:01 | HHI.PR ---
Subjective Remarks Follow-up hip infection. Pain under control. Assisted by 2 persons getting out of bed. Discussed with RN. Also discussed with ID and orthopedic surgery. Surgery this Saturday Objective Vitals Vital Signs Date Time Temp Pulse Resp B/P Pulse Ox O2 Delivery O2 Flow Rate FiO2 04/10/17 08:00 98.1 83 18 119/69 95 04/10/17 04:00 98.6 92 18 117/77 96 04/10/17 00:00 99.3 92 18 127/70 95 04/09/17 20:00 98.9 88 18 114/65 96 04/09/17 18:12 95 21 04/09/17 16:00 98.9 93 19 120/66 95 I/O 04/09/17 04/09/17 04/09/17 04/10/17 04/10/17 04/10/17 06:59 14:59 22:59 06:59 14:59 22:59 Intake Total 452 ml 480 ml 367 ml 240 ml Output Total 975 ml 300 ml 275 ml 625 ml Balance -523 ml 180 ml 92 ml -385 ml Intake Oral 240 ml 480 ml 240 ml 240 ml IV Total 212 ml Other 127 ml Output Urine Total 975 ml 300 ml 275 ml 625 ml # Bowel Movements 0 0 0 0 Result Diagram: 04/08/17 1803 04/07/17 0610 Objective Remarks GENERAL: This is a well-nourished, well-developed patient, in no apparent distress. SKIN: Warm and dry. CARDIOVASCULAR: Irregular heart rate without murmurs, gallops, or rubs. RESPIRATORY: Clear to auscultation. Breath sounds equal bilaterally. No wheezes , rales, or rhonchi. GASTROINTESTINAL: Abdomen soft, non-tender, nondistended. Bowel sounds active 4. No guarding. MUSCULOSKELETAL: Extremities without clubbing, cyanosis. Left hip incision area upper portion with improving induration, resolved erythema NEUROLOGICAL: Awake and alert. Oriented to time, place, person. Mild right sided weakness. Motor and sensory grossly within normal limits. Normal speech. Procedures Left hip aspiration A/P Problem List: (1) Left hip pain ICD Code: M25.552 Status: Acute (2) Elevated C-reactive protein (CRP) ICD Code: R79.82 Status: Acute (3) Elevated sed rate ICD Code: R70.0 Status: Acute (4) Lactic acid acidosis ICD Code: E87.2 Status: Acute (5) Anticoagulated on Coumadin ICD Code: Z51.81 Status: Chronic (6) Hypertension ICD Code: I10 Status: Chronic (7) Chronic atrial fibrillation ICD Code: I48.2 Status: Chronic (8) Right hemiparesis ICD Code: G81.91 Status: Acute (9) BPH (benign prostatic hyperplasia) ICD Code: N40.0 Status: Chronic (10) History of hemorrhagic stroke with residual hemiparesis ICD Code: I69.359 Status: Chronic (11) S/P total hip arthroplasty ICD Code: Z96.649 Status: Chronic Assessment and Plan Patient is an 81-year-old male with primary medical history of A. fib on Coumadin, hemorrhagic thalamic CVA, HTN who came into the hospital for evaluation of left hip secondary to increasing pain, associated with fevers and chills. Severe sepsis 2/2 left hip incision/operative infection - Orthopedic surgery to perform is out this Saturday - Pain management with morphine 2 mg IV every 3 hours when necessary for breakthrough pain, oxycodone - Blood cultures x2, follow-up results negative to date - UA negative and chest x-ray unremarkable - Wound culture with MSSA. Antibiotics switched to IV Ancef. Septic encephalopathy. Improved. Head CT and MRI of the brain without acute infarct. Neurochecks HTN HLD A. fib, coumadin - - Subtherapeutic continue Lovenox . Hold Coumadin for now - Continue lisinopril 20 mg daily, Procardia 30 mg daily, Cardura 4 mg twice a day, pravastatin 10 mg daily at bedtime - Clonidine when necessary - Monitor BP trend BPH - Continue home medication Proscar 5 mg daily at bedtime DVT proph with Lovenox Discharge Planning Not stable for discharge Problem Qualifiers (1) S/P total hip arthroplasty: Qualified Code: Z96.642 - Status post total replacement of left hip Brenden Aceves MD Apr 10, 2017 13:01
--- NOTE | 2017-04-10 17:15 | HHI.IDPN ---
Subjective Subjective Remarks no fever blood clx are negative tolerating abx OK co constipation Antibiotics cefazoline Allergies: Coded Allergies: doxycycline (Unverified Allergy, Severe, Erythema Multiforme, 04/09/17) minocycline (Unverified Allergy, Severe, Erythema Multiforme, 04/09/17) tigecycline (Unverified Allergy, Severe, Erythema Multiforme, 04/09/17) Objective . Vital Signs Date Time Temp Pulse Resp B/P Pulse Ox O2 Delivery O2 Flow Rate FiO2 04/10/17 14:21 97 04/10/17 12:00 97.7 93 17 110/57 95 04/10/17 08:00 98.1 83 18 119/69 95 04/10/17 04:00 98.6 92 18 117/77 96 04/10/17 00:00 99.3 92 18 127/70 95 04/09/17 20:00 98.9 88 18 114/65 96 04/09/17 18:12 95 21 04/09/17 04/09/17 04/10/17 15:00 23:00 07:00 Intake Total 480 ml 367 ml 240 ml Output Total 300 ml 275 ml 625 ml Balance 180 ml 92 ml -385 ml Intake Oral 480 ml 240 ml 240 ml Other 127 ml Output Urine Total 300 ml 275 ml 625 ml # Bowel Movements 0 0 0 . Laboratory Tests Test 04/08/17 18:03 White Blood Count 5.1 TH/MM3 Red Blood Count 3.20 MIL/MM3 Hemoglobin 9.0 GM/DL Hematocrit 27.3 % Mean Corpuscular Volume 85.1 FL Mean Corpuscular Hemoglobin 28.0 PG Mean Corpuscular Hemoglobin 32.9 % Concent Red Cell Distribution Width 15.1 % Platelet Count 198 TH/MM3 Mean Platelet Volume 7.9 FL Imaging Last Impressions Head CT 04/06/17 0000 Signed Impressions: Service Date/Time: Thursday, April 06, 2017 19:59 - CONCLUSION: Evidence of old insult in the left thalamus. No acute intracranial findings. Karthikeyan Rodrigues MD Chest X-Ray 04/06/17 0000 Signed Impressions: Service Date/Time: Thursday, April 06, 2017 22:36 - CONCLUSION: No acute cardiopulmonary disease identified. Karthikeyan Rodrigues MD Brain MRI 04/06/17 0000 Signed Impressions: Service Date/Time: Thursday, April 06, 2017 21:38 - CONCLUSION: No acute intracranial findings. Karthikeyan Rodrigues MD Hip X-Ray 04/05/17 0000 Signed Impressions: Service Date/Time: Wednesday, April 05, 2017 13:01 - CONCLUSION: 1. No acute process. 2. Status post total left hip replacement. Mane Moss MD Hip Aspiration/Injection 04/05/17 0000 Signed Impressions: Service Date/Time: Wednesday, April 05, 2017 17:50 - CONCLUSION: Uncomplicated aspiration as above. There was no hip joint effusion identified. Jakob Agarwal MD Physical Exam CONSTITUTIONAL/GENERAL: This is an adequately nourished patient, in no apparent distress. TUBES/LINES/DRAINS: SKIN: No jaundice, rashes, or lesions. vCARDIOVASCULAR: Regular rate and rhythm without murmurs, gallops, or rubs. No JVD. Peripheral pulses symmetric. RESPIRATORY/CHEST: Symmetric, unlabored respirations. Clear to auscultation. Breath sounds equal bilaterally. No wheezes, rales, or rhonchi. GASTROINTESTINAL: Abdomen soft, non-tender, nondistended. No hepato-splenomegaly , or palpable masses. No guarding. Bowel sounds present. GENITOURINARY: Without palpable bladder distension. MUSCULOSKELETAL: Extremities without clubbing, cyanosis, or edema. L hip incision with stirry strips inp place, no d/c less induration around incision no erythema + substantial edema NEUROLOGICAL: Awake and alert. Lucid Oriented x 3 clear speech, but still issues with recalling names and finding words Motor and sensory grossly within normal limits. Follows commands. Moves all extremities. PSYCHIATRIC: No obvious anxiety/depression. no apparent hallucinations or other psychotic thought process. Assessment & Plan Remarks Prosthetic L hip infection, MSSA - confirmed by culture obtained via aspiration Fever - 2/2 prosthetic joint infx : resolved - blood clx remain negative MS change - 2/2 infected NAYA , resolved ? underlying cont cefazoline pt goes for 1st part of 2 stage procedure presumably on Sat Anticipate d/c on Sat nxt week with home IV abx for 6 wks (cefazoline or Oxacillin) New prosthesis can be put in if repeat clx is neg and ESR/CRP nl 2 weeks after abx completed OK for PICC dw Ethan Farrell Alexandra A. MD Apr 10, 2017 17:14
--- NOTE | 2017-04-10 17:16 | HHI.FF ---
Infusion Therapy Location of Infusion Therapy: [facility] IV Infusion Order Patient Information Patient Weight 87.6 kg Diagnosis: Diagnosis L NAYA infection MSSA Coded Allergies: doxycycline (Unverified Allergy, Severe, Erythema Multiforme, 04/09/17) minocycline (Unverified Allergy, Severe, Erythema Multiforme, 04/09/17) tigecycline (Unverified Allergy, Severe, Erythema Multiforme, 04/09/17) Administer Medication Cefazolin 2 grams IV q 8 hours Start Treatment: Apr 15, 2017 Stop Treatment: May 26, 2017 Additional Information Venous access: PICC Line Additional Instructions [x] Peripheral flush and dressing changes per protocol [x] 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 [] May leave port accessed during therapy. [] May leave peripheral site accessed for duration of therapy. [x] If patient has SOB or respiratory distress, check oxygen saturation. If less than 90% or clinical signs of respiratory distress, administer oxygen at 2 L/min. via nasal cannula and notify physician. [x] Anaphylaxis/Reaction orders: * Stop infusion. * Keep IV line open with saline flush. * Notify physician. * Monitor vital signs every 15 minutes until symptoms resolve. * Check Oxygen saturation; Oxygen at 2 L/min. via nasal cannula if less than 90% or clinical signs of respiratory distress. * Administer diphenhydramine (Benadryl) 25 mg IV STAT, (unless patient has received as pre-med). May repeat once, if necessary. * Solu-Cortef 250 mg IVP over 30-60 seconds, use 100 mg vials for each dissolution. * Epinephrine (1mg/1 ml) 0.3 mg subcutaneously or IVP now with any signs of respiratory distress. * Check with physician for new additional pre-med orders if patient is re- challenged or re-treated. [x] May remove PICC line when treatment complete, after confirming with Physician. [x] If the patient is admitted to the hospital, the ED, or transferred via [facility] , complete transfer form including medication reconciliation order sheet. Laboratory Tests Weekly Labs: CBC w/diff, Creatinine, CRP, SED Rate Ashley Resendiz MD Apr 10, 2017 17:16
[2017-04-10] MEDS: PRAVASTATIN SOD 10 MG TAB PO SCH (20:49)
[2017-04-10] MEDS: MULTIVITAMINS/MINERALS THERAPEUTIC TAB PO SCH (20:49)
[2017-04-10] MEDS: FINASTERIDE 5 MG TAB PO SCH (20:49)
[2017-04-10] MEDS: GABAPENTIN 300 MG CAP PO SCH (20:50)
[2017-04-11] VITALS (7 sets, daily range): BP systolic 107–119; BP diastolic 60–74; PULSE 79–98; RESP 18–20; TEMP 96.8–98.4; O2SAT 94–97
[2017-04-11] MEDS: ceFAZolin 2 GM PREMIX 50 ML IV SCH ×3 (04:58→20:19)
[2017-04-11 06:16] LABS: HEMATOCRIT 26.6 % (39.0-51.0); MEAN CELL VOLUME 83.1 FL (80.0-100.0); MEAN CORPUSCULAR HEMOGLOBIN 28.3 PG (27.0-34.0); MEAN CORPUSCULAR HGB CONC 34.1 % (32.0-36.0); PLATELET COUNT 226 TH/MM3 (150-450); RED CELL DISTRIBUTION WIDTH 15.3 % (11.6-17.2); REVIEW FLAG FINAL; WHITE BLOOD COUNT 3.9 TH/MM3 (4.0-11.0)
[2017-04-11 06:30] LABS: INTERNATIONAL NORMALIZED RATIO 1.1 RATIO; PROTHROMBIN TIME - PATIENT 12.3 SEC (9.8-11.6)
[2017-04-11] MEDS: ENOXAPARIN SODIUM 100 MG/ML SYRINGE SQ SCH ×2 (08:00→20:00)
[2017-04-11] MEDS: NIFEdipine 30 MG SUSTAINED RELEASE TAB PO SCH (10:02)
[2017-04-11] MEDS: ASCORBIC ACID 500 MG TAB PO SCH ×2 (10:02→20:17)
[2017-04-11] MEDS: SODIUM CHLORIDE 0.9% FLUSH 10 ML FLUSH IV FLUSH SCH ×2 (10:02→20:20)
[2017-04-11] MEDS: DOXAZOSIN MESYLATE 4 MG TAB PO SCH ×2 (10:03→20:20)
[2017-04-11] MEDS: DOCUSATE SODIUM 50 MG/SENNA 8.6 MG TAB PO SCH ×2 (10:03→20:18)
[2017-04-11] MEDS: LISINOPRIL 20 MG TAB PO SCH (10:03)
--- NOTE | 2017-04-11 12:24 | HHI.PR ---
Subjective Remarks Complaint of left great toe gout flare. He also has cold sores in his mouth. No other complaints. Pending surgery for tomorrow. Objective Vital Signs Date Time Temp Pulse Resp B/P Pulse Ox O2 Delivery O2 Flow Rate FiO2 04/11/17 08:00 97.8 85 18 119/68 96 04/11/17 00:00 96.8 98 20 119/74 94 04/10/17 22:00 94 04/10/17 20:00 98.1 98 20 126/70 96 04/10/17 14:21 97 I/O 04/10/17 04/10/17 04/10/17 04/11/17 04/11/17 04/11/17 07:00 15:00 23:00 07:00 15:00 23:00 Intake Total 240 ml 120 ml 410 ml 170 ml Output Total 625 ml 450 ml 900 ml 450 ml Balance -385 ml -330 ml -490 ml -280 ml Intake Oral 240 ml 120 ml 360 ml 120 ml IV Total 50 ml 50 ml Output Urine Total 625 ml 450 ml 900 ml 450 ml # Bowel Movements 0 0 0 0 Result Diagram: 04/11/17 0544 04/07/17 0610 Objective Remarks GENERAL: NAD, A&Ox3 HEAD: Normocephalic. NECK: Supple, trachea midline. No lymphadenopathy. EYES: No scleral icterus. No injection or drainage. CARDIOVASCULAR: Regular rate and rhythm without murmurs, gallops, or rubs. RESPIRATORY: Breath sounds equal bilaterally. No accessory muscle use. GASTROINTESTINAL: Abdomen soft, non-tender, nondistended. MUSCULOSKELETAL: No cyanosis, or edema. Tenderness at left hip. Limited range of motion of left hip. Tenderness at left first toe. SKIN: Warm and dry. Left upper lip has an ulcerated lesion. NEURO: No focal neurological deficitis. 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 Sepsis Left hip infection Sepsis is resolved Orthopedics following Continue antibiotics, Ancef Continue pain treatments as needed Follow blood cultures Plan for surgery tomorrow Metabolic encephalopathy Resolved Follow clinically HTN HLD A. fib Hold coumadin Continue lovenox Continue Procardia Continue lisinopril Continue Cardura Continue pravastatin Follow hyperlipidemia as an outpatient BPH Continue Proscar 5 mg daily at bedtime DVT proph Lovenox Discharge Planning Plan for surgery tomorrow. Problem Qualifiers (1) S/P total hip arthroplasty: Qualified Code: Z96.642 - Status post total replacement of left hip Aravind Machuca MD Apr 11, 2017 12:24 pm
[2017-04-11] MEDS ORDERED: ACYCLOVIR 800 MG TAB PO ONE (14:00)
[2017-04-11] MEDS ORDERED: NAPROXEN 500 MG TAB PO ONE (14:00)
[2017-04-11] MEDS: PRAVASTATIN SOD 10 MG TAB PO SCH (20:17)
[2017-04-11] MEDS: MULTIVITAMINS/MINERALS THERAPEUTIC TAB PO SCH (20:17)
[2017-04-11] MEDS: GABAPENTIN 300 MG CAP PO SCH (20:18)
[2017-04-11] MEDS: NAPROXEN 250 MG TAB PO SCH (20:18)
[2017-04-11] MEDS: FINASTERIDE 5 MG TAB PO SCH (20:18)
[2017-04-12] VITALS (11 sets, daily range): BP systolic 102–133; BP diastolic 58–77; PULSE 74–93; RESP 16–20; TEMP 95.2–97.8; O2SAT 95–99
[2017-04-12] MEDS ORDERED: LACTATED RINGER'S 1000 ML IV PRN (03:45)
[2017-04-12] MEDS ORDERED: METOPROLOL TARTRATE 25 MG TAB PO PRN (03:45)
[2017-04-12] MEDS ORDERED: SODIUM CHLORID 0.9% 500 ML IV PRN (03:45)
[2017-04-12] MEDS: ceFAZolin 2 GM PREMIX 50 ML IV SCH ×3 (06:04→21:14)
[2017-04-12 07:04] LABS: INTERNATIONAL NORMALIZED RATIO 1.1 RATIO; PROTHROMBIN TIME - PATIENT 12.5 SEC (9.8-11.6)
[2017-04-12 07:18] LABS: AUTOMATED NEUTROPHIL # 2.7 TH/MM3 (1.8-7.7); BASOPHIL % 0.7 % (0.0-2.0); EOSINOPHIL # 0.2 TH/MM3 (0-0.4); EOSINOPHIL % 4.6 % (0.0-4.0); HEMATOCRIT 26.2 % (39.0-51.0); HEMO FLAGS DIFF FINAL; LYMPH % 9.8 % (9.0-44.0); LYMPHOCYTE # 0.4 TH/MM3 (1.0-4.8); MEAN CELL VOLUME 83.7 FL (80.0-100.0); MEAN CORPUSCULAR HEMOGLOBIN 28.5 PG (27.0-34.0); MEAN CORPUSCULAR HGB CONC 34.1 % (32.0-36.0); MONO % 10.9 % (0.0-8.0); PLATELET COUNT 248 TH/MM3 (150-450); RED BLOOD COUNT 3.13 MIL/MM3 (4.50-5.90); RED CELL DISTRIBUTION WIDTH 14.9 % (11.6-17.2); WHITE BLOOD COUNT 3.7 TH/MM3 (4.0-11.0)
[2017-04-12 07:20] LABS: ANION GAP 6 MEQ/L (5-15); AST (GOT) 60 U/L (15-37); BICARBONATE 30.1 MEQ/L (21.0-32.0); BLOOD UREA NITROGEN 10 MG/DL (7-18); CHLORIDE 97 MEQ/L (98-107); GLOMERULAR FILTRATION RATE 156 ML/MIN (>89); POTASSIUM 3.5 MEQ/L (3.5-5.1); SODIUM (NA) 133 MEQ/L (136-145)
[2017-04-12 07:22] LABS: ALT (GPT) 78 U/L (12-78)
[2017-04-12 07:23] LABS: ALKALINE PHOSPHATASE 211 U/L (45-117); TOTAL BILIRUBIN ADULT 0.7 MG/DL (0.2-1.0)
[2017-04-12] MEDS: SODIUM CHLORIDE 0.9% FLUSH 10 ML FLUSH IV FLUSH SCH (08:04)
[2017-04-12] MEDS: NAPROXEN 250 MG TAB PO SCH ×2 (08:04→21:00)
[2017-04-12] MEDS: DOCUSATE SODIUM 50 MG/SENNA 8.6 MG TAB PO SCH ×2 (08:04→21:00)
[2017-04-12] MEDS: ACYCLOVIR 800 MG TAB PO SCH (08:05)
[2017-04-12] MEDS: LISINOPRIL 20 MG TAB PO SCH (08:06)
[2017-04-12] MEDS: DOXAZOSIN MESYLATE 4 MG TAB PO SCH ×2 (08:06→21:34)
[2017-04-12] MEDS: ASCORBIC ACID 500 MG TAB PO SCH ×2 (08:06→21:16)
[2017-04-12] MEDS: NIFEdipine 30 MG SUSTAINED RELEASE TAB PO SCH (08:07)
--- NOTE | 2017-04-12 09:51 | HHI.PR ---
Subjective Remarks Plan for surgery today. Left toe is improved. No new complaints from the patient. Objective Vital Signs Date Time Temp Pulse Resp B/P Pulse Ox O2 Delivery O2 Flow Rate FiO2 04/12/17 08:00 97.8 84 16 133/74 96 04/12/17 04:00 96.4 74 19 115/70 95 04/12/17 00:00 97.5 87 19 119/58 95 04/11/17 22:24 95 21 04/11/17 20:08 86 04/11/17 20:00 98.4 79 19 107/64 97 04/11/17 16:00 97.7 87 18 115/74 96 04/11/17 12:00 97.8 85 18 118/60 97 I/O 04/11/17 04/11/17 04/11/17 04/12/17 04/12/17 04/12/17 06:59 14:59 22:59 06:59 14:59 22:59 Intake Total 170 ml 180 ml 290 ml 120 ml Output Total 450 ml 300 ml 400 ml 530 ml Balance -280 ml -120 ml -110 ml -410 ml Intake Oral 120 ml 180 ml 240 ml 120 ml IV Total 50 ml 50 ml Output Urine Total 450 ml 300 ml 400 ml 530 ml # Bowel Movements 0 0 0 0 Result Diagram: 04/12/1761604/12/17616 Objective Remarks GENERAL: NAD, A&Ox3 HEAD: Normocephalic. NECK: Supple, trachea midline. No lymphadenopathy. EYES: No scleral icterus. No injection or drainage. CARDIOVASCULAR: Regular rate and rhythm without murmurs, gallops, or rubs. RESPIRATORY: Breath sounds equal bilaterally. No accessory muscle use. GASTROINTESTINAL: Abdomen soft, non-tender, nondistended. MUSCULOSKELETAL: No cyanosis, or edema. Tenderness at left hip. Limited range of motion of left hip. Tenderness at left first toe. SKIN: Warm and dry. Left upper lip has an ulcerated lesion. NEURO: No focal neurological deficitis. 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 Plan for left hip surgery with revision and possible antibiotic spacer today. Follow BMP and CBC. Labs ordered. Sepsis Left hip infection Sepsis is resolved Orthopedics following Continue antibiotics, Ancef Continue pain treatments as needed Follow blood cultures Plan for surgery tomorrow Metabolic encephalopathy Resolved Follow clinically HTN HLD A. fib Hold coumadin Continue lovenox Continue Procardia Continue lisinopril Continue Cardura Continue pravastatin Follow hyperlipidemia as an outpatient BPH Continue Proscar 5 mg daily at bedtime DVT proph Lovenox Discharge Planning Plan for surgery tomorrow. Problem Qualifiers (1) S/P total hip arthroplasty: Qualified Code: Z96.642 - Status post total replacement of left hip Aravind Machuca MD Apr 12, 2017 09:51
[2017-04-12] MEDS ORDERED: TOBRAMYCIN SULFATE 1200 MG VIAL ONE ×2 (09:56→12:31)
[2017-04-12] MEDS ORDERED: SODIUM CHLORIDE 0.9% 20 ML VIAL ONE (09:56)
[2017-04-12] MEDS ORDERED: ceFAZolin INJ 1,000 MG VIAL ONE ×2 (09:56→12:59)
[2017-04-12] MEDS ORDERED: ACETAMINOPHEN 1000 MG/100 ML VIAL IV ONE (10:20)
[2017-04-12] MEDS ORDERED: FAMOTIDINE 20 MG/2 ML VIAL ONE (10:21)
[2017-04-12] MEDS ORDERED: fentaNYL CITRATE 250 MCG/5 ML AMP ONE (10:21)
[2017-04-12] MEDS ORDERED: MIDAZOLAM HCL 2 MG/2 ML VIAL ONE (10:21)
[2017-04-12] MEDS ORDERED: ceFAZolin INJ 1,000 MG VIAL IV ONE ×2 (11:17→13:00)
[2017-04-12] MEDS ORDERED: NEOSTIGMINE 3 MG/3 ML SYR IV ONE (12:00)
[2017-04-12] MEDS ORDERED: ONDANSETRON HCL 4 MG/2 ML VIAL IV PUSH ONE (12:00)
[2017-04-12] MEDS ORDERED: PROPOFOL 200 MG/20 ML AMP IV ONE (12:00)
[2017-04-12] MEDS ORDERED: LACTATED RINGER'S 1000 ML INJ 1,000 ML IV ONE (12:00)
[2017-04-12] MEDS ORDERED: PHENYLEPH/NS 1000 MCG/10 ML SYR IV ONE (12:00)
[2017-04-12] MEDS ORDERED: ePHEDrine/NS 25 MG/5 ML SYR IV ONE (12:00)
[2017-04-12] MEDS ORDERED: TOBRAMYCIN SULFATE 1200 MG VIAL OTHER ONE (12:45)
[2017-04-12] MEDS ORDERED: DO NOT ADM ANY ANTICOAGULANT DRUGS PRN (13:52)
[2017-04-12] MEDS ORDERED: ONDANSETRON HCL 4 MG/2 ML VIAL IVP PRN (14:00)
[2017-04-12] MEDS ORDERED: DOCUSATE SODIUM 100 MG CAP PO PRN (14:00)
[2017-04-12] MEDS ORDERED: ACETAMINOPHEN 325 MG TAB PO PRN (14:00)
[2017-04-12] MEDS ORDERED: ZOLPIDEM TARTRATE 5 MG TAB PO PRN (14:00)
[2017-04-12] MEDS ORDERED: Post-op Orders (for Pharmacy) MISC XX ONE (14:00)
[2017-04-12] MEDS ORDERED: SODIUM CHLORIDE 0.9% FLUSH 5 ML FLUSH IVF PRN (14:00)
[2017-04-12] MEDS: DEXT 5%-NACL 0.45% 1000 ML INJ 1,000 ML IV SCH (14:00)
[2017-04-12] MEDS ORDERED: NALOXONE HCL 0.4 MG/ML AMP IV PRN (14:00)
[2017-04-12] MEDS ORDERED: ACETAMINOPHEN/HYDROcodone 325 MG/5 MG TAB PO PRN (14:00)
[2017-04-12] MEDS ORDERED: MISCELLANEOUS PHARMACY INFORMATION XX ONE (14:00)
[2017-04-12] MEDS: MORPHINE SULFATE 30 MG/30 ML PCA IV SCH (15:02)
--- NOTE | 2017-04-12 15:10 | RADRPT ---
EXAM DATE/TIME: 04/12/2017 14:24 [facility] COMPARISON: HIP LEFT AP ONLY WO AP PELVIS, March 13, 2017, 13:24. INDICATIONS : Status post left hip revision arthroplasty.. MEDICAL HISTORY : None. SURGICAL HISTORY : Hip replacement. ENCOUNTER: Initial ACUITY: 1 day PAIN SCORE: 10/10 LOCATION: Left hip. FINDINGS: A single AP view of the left hip was obtained and demonstrates a patient status post revision arthrop lasty. The femoral and acetabular components are intact and in normal alignment. There is overlying s oft tissue swelling. CONCLUSION: Status post revision arthroplasty. Nii Jenkins MD on April 12, 2017 at 15:07 Board Certified Radiologist. This report was verified electronically.
[2017-04-12] MEDS: SODIUM CHLORIDE 0.9% FLUSH 5 ML FLUSH IVF SCH (21:00)
[2017-04-12] MEDS: MULTIVITAMINS/MINERALS THERAPEUTIC TAB PO SCH (21:15)
[2017-04-12] MEDS: PRAVASTATIN SOD 10 MG TAB PO SCH (21:15)
[2017-04-12] MEDS: GABAPENTIN 300 MG CAP PO SCH (21:16)
[2017-04-12] MEDS: FINASTERIDE 5 MG TAB PO SCH (21:16)
[2017-04-12] MEDS: PCA - TOTAL MG MORPHINE DELIVERED PER SHIFT SCH (22:00)
[2017-04-13] VITALS: BP 121/67; PULSE 87; RESP 19; TEMP 96.2; O2SAT 95
[2017-04-13 04:44] VITALS: BP 118/64; PULSE 75; RESP 19; TEMP 96; O2SAT 99
[2017-04-13] MEDS: ceFAZolin 2 GM PREMIX 50 ML IV SCH ×3 (04:55→21:49)
[2017-04-13] MEDS: METHOCARBAMOL 500 MG TAB PO PRN ×2 (04:56→19:56)
[2017-04-13] MEDS: PCA - TOTAL MG MORPHINE DELIVERED PER SHIFT SCH (06:00)
[2017-04-13 06:27] LABS: HEMATOCRIT 23.2 % (39.0-51.0); MEAN CORPUSCULAR HEMOGLOBIN 29.6 PG (27.0-34.0); MEAN CORPUSCULAR HGB CONC 34.9 % (32.0-36.0); PLATELET COUNT 228 TH/MM3 (150-450); RED BLOOD COUNT 2.73 MIL/MM3 (4.50-5.90); RED CELL DISTRIBUTION WIDTH 15.1 % (11.6-17.2); REVIEW FLAG FINAL; WHITE BLOOD COUNT 6.7 TH/MM3 (4.0-11.0)
[2017-04-13 06:54] LABS: BICARBONATE 29.9 MEQ/L (21.0-32.0); POTASSIUM 4.3 MEQ/L (3.5-5.1)
[2017-04-13 07:14] LABS: CALCIUM-PROTEIN CORRECTED 8.5 MG/DL (8.5-10.1)
[2017-04-13 08:00] VITALS: BP 128/65; PULSE 74; RESP 14; TEMP 96.9; O2SAT 100
[2017-04-13] MEDS: SODIUM CHLORIDE 0.9% FLUSH 5 ML FLUSH IVF SCH ×2 (09:00→19:57)
[2017-04-13] MEDS: ASCORBIC ACID 500 MG TAB PO SCH ×2 (10:07→19:56)
[2017-04-13] MEDS: DOCUSATE SODIUM 50 MG/SENNA 8.6 MG TAB PO SCH ×2 (10:07→19:56)
[2017-04-13] MEDS: DEXT 5%-NACL 0.45% 1000 ML INJ 1,000 ML IV SCH ×3 (10:07→18:34)
[2017-04-13] MEDS: NIFEdipine 30 MG SUSTAINED RELEASE TAB PO SCH (10:08)
[2017-04-13] MEDS: LISINOPRIL 20 MG TAB PO SCH (10:08)
[2017-04-13] MEDS: NAPROXEN 250 MG TAB PO SCH ×2 (10:09→19:56)
[2017-04-13] MEDS: ACYCLOVIR 800 MG TAB PO SCH (10:10)
[2017-04-13] MEDS: DOXAZOSIN MESYLATE 4 MG TAB PO SCH ×2 (10:33→19:56)
[2017-04-13] MEDS: MORPHINE SULFATE 30 MG/30 ML PCA IV SCH (10:51)
[2017-04-13 12:00] VITALS: BP 80/38; PULSE 102; RESP 18; TEMP 95.3; O2SAT 96
--- NOTE | 2017-04-13 13:52 | MP ---
cc: NIA LONG DATE OF SURGERY: 04/12/2017. PREOPERATIVE DIAGNOSIS: Septic joint, status post left total hip arthroplasty. POSTOPERATIVE DIAGNOSIS: Septic joint, status post left total hip arthroplasty. OPERATIVE PROCEDURE PERFORMED: Resection arthroplasty left hip with insertion of StageOne Select Hip Cement Spacer. SURGEON: Nia Long MD. ANESTHESIA: General endotracheal anesthesia. DESCRIPTION OF THE PROCEDURE IN DETAIL / FORMAT: Following the induction of satisfactory general anesthesia by endotracheal intubation as completed per the department of anesthesia, the patient was positioned upon the operating table in a right lateral decubitus fashion. The left hip and lower extremity proper were isolated with a U drape thereafter being prepped with Betadine solution and draped into a sterile field in the routine manner. Prior to initiation of the actual procedure, the standard time-out protocol was completed and all parameters were appropriately addressed and confirmed by operating room personnel. A previous surgical scar about the left hip was utilized for initiating a sharp skin incision, which was developed through underlying subcutaneous tissue with hemostasis maintained by electrocautery. By deepening dissection, the fascia overlying the gluteus musculature was exposed. As progressive dissection was completed, several specimens were obtained for culture analysis. As further dissection into the deeper tissue was noted, a significant cavity of a cloudy fluid was encountered with specimen obtained and the remaining portion of the fluid evacuated and additional tissue specimens of necrotic tissue was also submitted for analysis. A thorough debridement was completed down to the capsular level as well as pulsating antibiotic lavage. The capsule was thereafter entered and additional tissue was obtained for laboratory analysis. The underlying prosthesis was exposed. The femoral component was dislocated from the acetabular cup. The head of the femoral stem was removed and thereafter the femoral stem was extracted from the confines of the proximal femur. Attention was redirected to the acetabulum. The acetabular liner was removed and thereafter the acetabular shell was extracted from the confines of the acetabulum. A thorough debridement thereafter was accomplished with soft tissue removal by curettes, rongeur and sharp dissection. The acetabulum as well as the femoral canal were also debrided utilizing reamers at both levels. Thereafter, a trial reduction was completed utilizing a 56 mm head size and a 13-mm stem size with -6 mm neck length adapter. The hip was reduced and carried through a passive range of motion with stability being demonstrated. An open dislocation was completed. The trial components were removed. An additional debridement and irrigation was accomplished utilizing pulsating antibiotic lavage. Thereafter the [employer] StageOne Select Hip Cement Spacer molds were fabricated utilizing [place] Cement with 1.2 grams of tobramycin per 40 grams of cement mixture. 2 grams of cement were utilized per fabrication of both the femoral and acetabular components. With cement hardening completed, the components were assembled. Thereafter the unit was inserted into the proximal femur and the hip was reduced and again carried through a passive range of motion with stability demonstrated. Final irrigation was accomplished. Hemostasis was maintained by electrocautery. The posterior capsular region was repaired with #0 Vicryl suture. The fascia of the gluteus musculature was reapproximated with a running #0 Vicryl suture. The remaining portion of the wound was closed in layers in the routine manner, skin margins being reapproximated with a running subcuticular 3-0 Vicryl suture over which Steri-Strips were applied. Xeroform gauze and a bulky dry sterile dressing were place. The patient was repositioned into a supine orientation where an abduction splint was attached, anesthesia was discontinued. He was thereafter transferred to a hospital bed and returned to the recovery room in satisfactory condition having tolerated his operative procedure well. The estimated blood loss was approximately 1500 cc as determined per anesthesia. The patient was to receive two units of packed cells in the post-anesthesia care unit. MD EBONI Perez/LONNIE /1:53 PM /1:35 PM
[2017-04-13 16:00] VITALS: BP 98/54; PULSE 73; RESP 20; TEMP 97.1; O2SAT 96
--- NOTE | 2017-04-13 16:21 | HHI.PR ---
Subjective Remarks Doing well postop regarding pain control. Patient's functional status is, however, compromise. He attempted to get out of the bed into a chair today and had great difficulty. This has changed his opinion from trying to get home to being more compliant with rehabilitation. Plan to discharge to inpatient rehabilitation service. Objective Vital Signs Date Time Temp Pulse Resp B/P Pulse Ox O2 Delivery O2 Flow Rate FiO2 04/13/17 12:00 95.3 102 18 80/38 96 04/13/17 10:51 14 04/13/17 08:00 96.9 74 14 128/65 100 04/13/17 06:00 17 04/13/17 04:44 96.0 75 19 118/64 99 04/13/17 00:00 96.2 87 19 121/67 95 04/12/17 22:00 17 04/12/17 21:00 83 04/12/17 21:00 96.6 83 17 120/75 98 04/12/17 20:00 96.6 86 20 120/75 98 04/12/17 17:48 96.9 87 18 111/77 99 04/12/17 17:30 97.1 87 19 107/66 99 04/12/17 17:24 97.1 87 19 107/66 99 I/O 04/12/17 04/12/17 04/12/17 04/13/17 04/13/17 04/13/17 07:00 15:00 23:00 07:00 15:00 23:00 Intake Total 120 ml 2050 ml 1320 ml 1191 ml 1200 ml 1078 ml Output Total 530 ml 1675 ml 100 ml 600 ml 1000 ml Balance -410 ml 375 ml 1220 ml 591 ml 200 ml 1078 ml Intake Oral 120 ml 0 ml 120 ml 240 ml 1200 ml IV Total 50 ml 950 ml 951 ml 1078 ml Packed Cells 250 ml Other 2000 ml Output Urine Total 530 ml 175 ml 100 ml 600 ml 1000 ml Estimated Blood Loss 1500 ml # Voids 1 # Bowel Movements 0 0 0 0 0 Result Diagram: 04/13/1760504/13/17605 Objective Remarks GENERAL: NAD, A&Ox3 HEAD: Normocephalic. NECK: Supple, trachea midline. No lymphadenopathy. EYES: No scleral icterus. No injection or drainage. CARDIOVASCULAR: Regular rate and rhythm without murmurs, gallops, or rubs. RESPIRATORY: Breath sounds equal bilaterally. No accessory muscle use. GASTROINTESTINAL: Abdomen soft, non-tender, nondistended. MUSCULOSKELETAL: No cyanosis, or edema. Tenderness at left hip. Limited range of motion of left hip. Tenderness at left first toe. SKIN: Warm and dry. Left upper lip has an ulcerated lesion. NEURO: No focal neurological deficitis. 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 Status post hip surgery with revision and possible antibiotic spacer today. Plan for discharge to inpatient rehabilitation tomorrow. Sepsis Left hip infection Sepsis is resolved Orthopedics following Continue antibiotics, Ancef Continue pain treatments as needed Follow blood cultures Plan for surgery tomorrow Metabolic encephalopathy Resolved Follow clinically HTN HLD A. fib Hold coumadin Continue lovenox Continue Procardia Continue lisinopril Continue Cardura Continue pravastatin Follow hyperlipidemia as an outpatient BPH Continue Proscar 5 mg daily at bedtime DVT proph Lovenox Discharge Planning Plan for surgery tomorrow. Problem Qualifiers (1) S/P total hip arthroplasty: Qualified Code: Z96.642 - Status post total replacement of left hip Aravind Machuca MD Apr 13, 2017 16:21
[2017-04-13] MEDS ORDERED: DOCU100C PO (16:23)
[2017-04-13 19:54] LABS: HEMATOCRIT 23.3 % (39.0-51.0); REVIEW FLAG FINAL
[2017-04-13] MEDS: FINASTERIDE 5 MG TAB PO SCH (19:56)
[2017-04-13] MEDS: GABAPENTIN 300 MG CAP PO SCH (19:56)
[2017-04-13] MEDS: PRAVASTATIN SOD 10 MG TAB PO SCH (19:56)
[2017-04-13] MEDS: MULTIVITAMINS/MINERALS THERAPEUTIC TAB PO SCH (19:56)
[2017-04-13] MEDS: ACETAMINOPHEN/HYDROcodone 325 MG/5 MG TAB PO PRN (19:57)
[2017-04-13 20:00] VITALS: BP 102/61; PULSE 67; RESP 18; TEMP 97.3; O2SAT 96
[2017-04-13] MEDS: MORPHINE SULFATE 4 MG/ML INJ IV PRN (21:49)
[2017-04-14] VITALS (7 sets, daily range): BP systolic 93–123; BP diastolic 54–69; PULSE 66–75; RESP 14–20; TEMP 96.1–97.8; O2SAT 95–98
[2017-04-14] MEDS: ACETAMINOPHEN/HYDROcodone 325 MG/5 MG TAB PO PRN ×3 (00:35→14:30)
[2017-04-14] MEDS: METHOCARBAMOL 500 MG TAB PO PRN ×3 (00:39→14:30)
[2017-04-14 04:28] LABS: HEMATOCRIT 24.6 % (39.0-51.0); MEAN CELL VOLUME 86.5 FL (80.0-100.0); MEAN CORPUSCULAR HEMOGLOBIN 28.9 PG (27.0-34.0); MEAN CORPUSCULAR HGB CONC 33.4 % (32.0-36.0); PLATELET COUNT 254 TH/MM3 (150-450); RED BLOOD COUNT 2.85 MIL/MM3 (4.50-5.90); RED CELL DISTRIBUTION WIDTH 15.2 % (11.6-17.2); REVIEW FLAG FINAL; WHITE BLOOD COUNT 6.7 TH/MM3 (4.0-11.0)
[2017-04-14 04:47] LABS: BICARBONATE 26.3 MEQ/L (21.0-32.0); POTASSIUM 3.9 MEQ/L (3.5-5.1)
[2017-04-14] MEDS: ceFAZolin 2 GM PREMIX 50 ML IV SCH ×2 (04:53→14:42)
[2017-04-14] MEDS ORDERED: SODIUM CHLOR 0.9% 250 ML INJ 250 ML IV ONE (08:00)
[2017-04-14] MEDS: DOXAZOSIN MESYLATE 4 MG TAB PO SCH (08:47)
[2017-04-14] MEDS: LISINOPRIL 20 MG TAB PO SCH (08:47)
[2017-04-14] MEDS: NAPROXEN 250 MG TAB PO SCH (08:47)
[2017-04-14] MEDS: ACYCLOVIR 800 MG TAB PO SCH (08:47)
[2017-04-14] MEDS: ASCORBIC ACID 500 MG TAB PO SCH (08:47)
[2017-04-14] MEDS: NIFEdipine 30 MG SUSTAINED RELEASE TAB PO SCH (08:47)
[2017-04-14] MEDS: DOCUSATE SODIUM 50 MG/SENNA 8.6 MG TAB PO SCH (08:47)
[2017-04-14] MEDS: SODIUM CHLORIDE 0.9% FLUSH 5 ML FLUSH IVF SCH (09:00)
[2017-04-14] MEDS: DEXT 5%-NACL 0.45% 1000 ML INJ 1,000 ML IV SCH ×3 (12:00→16:00)
--- NOTE | 2017-04-14 14:32 | HHI.DS ---
Discharge Summary Admission Date Apr 05, 2017 at 14:32 Discharge Date: Apr 14, 2017 Admitting Diagnosis L hip pain; inability to ambulate; ?septic joint; lactic acidosis; (1) Left hip pain ICD Code: M25.552 - Pain in left hip Diagnosis: Principal Status: Acute (2) Elevated C-reactive protein (CRP) ICD Code: R79.82 - Elevated C-reactive protein (CRP) Diagnosis: Principal Status: Acute (3) Elevated sed rate ICD Code: R70.0 - Elevated erythrocyte sedimentation rate Diagnosis: Principal Status: Acute (4) Lactic acid acidosis ICD Code: E87.2 - Acidosis Diagnosis: Principal Status: Acute (5) Anticoagulated on Coumadin ICD Code: Z51.81 - Encounter for therapeutic drug level monitoring; Z79.01 - nursing home (current) use of anticoagulants Diagnosis: Secondary Status: Chronic (6) Hypertension ICD Code: I10 - Essential (primary) hypertension Diagnosis: Secondary Status: Chronic (7) Chronic atrial fibrillation ICD Code: I48.2 - Chronic atrial fibrillation Diagnosis: Secondary Status: Chronic (8) Right hemiparesis ICD Code: G81.91 - Hemiplegia, unspecified affecting right dominant side Diagnosis: Secondary Status: Acute (9) BPH (benign prostatic hyperplasia) ICD Code: N40.0 - Benign prostatic hyperplasia without lower urinary tract symptoms Diagnosis: Secondary Status: Chronic (10) History of hemorrhagic stroke with residual hemiparesis ICD Code: I69.359 - Hemiplegia and hemiparesis following cerebral infarction affecting unspecified side Diagnosis: Secondary Status: Chronic (11) S/P total hip arthroplasty ICD Code: Z96.649 - Presence of unspecified artificial hip joint Diagnosis: Principal Status: Chronic Procedures Left hip revision with removal of hardware Brief History - From Admission Written by Rex Gallo, acting as scribe for Dr. Aceves on 04/05/17 at 15: 29. Patient is an 81-year-old male with primary medical history of A. fib on Coumadin, hemorrhagic thalamic CVA, HTN who came into the hospital for evaluation of left hip secondary to increasing pain, associated with fevers and chills. Patient is status post left total hip arthroplasty per Dr. Long 03/12, went to rehabilitation and did well and was sent home with home health care. Patient was evaluated by home health nurse and recommended to go to the emergency department for further workup. Patient and states that he was doing well yesterday, however in the evening he had fevers, rigors, increasing pain unable to bear weight, states that the left hip incision site was hard, red , purple but without any drainage. Patient states that the pain has been manageable before, however this morning he is unable to bear weight, pain is on the left leg, nonradiating, sharp, unrelieved by current home pain regimen. On exam, patient states pain medication that was given to him in the ED is working well and now in no pain or discomfort. Denies SOB/ dyspnea. Denies chest pain , palpitations, headaches, dizziness. Denies fevers, chills, n/v/d. Denies dysuria. CBC/BMP: 04/14/17 0357 04/14/17 0357 Significant Findings Laboratory Tests Test 04/12/17 06:17 04/13/17 06:06 04/13/17 19:13 04/14/17 03:57 White Blood Count 3.7 TH/MM3 (4.0-11.0) Red Blood Count 3.13 MIL/MM3 (4.50-5.90) 2.73 MIL/MM3 (4.50-5.90) 2.85 MIL/MM3 (4.50-5.90) Hemoglobin 8.9 GM/DL (13.0-17.0) 8.1 GM/DL (13.0-17.0) 7.9 GM/DL (13.0-17.0) 8.2 GM/DL (13.0-17.0) Hematocrit 26.2 % (39.0-51.0) 23.2 % (39.0-51.0) 23.3 % (39.0-51.0) 24.6 % (39.0-51.0) Neutrophils (%) (Auto) 74.0 % (16.0-70.0) Monocytes (%) (Auto) 10.9 % (0.0-8.0) Eosinophils (%) (Auto) 4.6 % (0.0-4.0) Lymphocytes # (Auto) 0.4 TH/MM3 (1.0-4.8) Prothrombin Time 12.5 SEC (9.8-11.6) Creatinine 0.51 MG/DL (0.60-1.30) 0.50 MG/DL (0.60-1.30) Total Protein 6.0 GM/DL (6.4-8.2) 5.0 GM/DL (6.4-8.2) Albumin 2.4 GM/DL (3.4-5.0) Calcium Level 8.1 MG/DL (8.5-10.1) 7.3 MG/DL (8.5-10.1) 7.7 MG/DL (8.5-10.1) Alkaline Phosphatase 211 U/L (45-117) Aspartate Amino Transf (AST/SGOT) 60 U/L (15-37) Sodium Level 133 MEQ/L (136-145) 135 MEQ/L (136-145) 130 MEQ/L (136-145) Chloride Level 97 MEQ/L (98-107) 97 MEQ/L (98-107) Random Glucose 141 MG/DL (74-106) 118 MG/DL (74-106) PE at Discharge GENERAL: NAD, A&Ox3 HEAD: Normocephalic. NECK: Supple, trachea midline. No lymphadenopathy. EYES: No scleral icterus. No injection or drainage. CARDIOVASCULAR: Regular rate and rhythm without murmurs, gallops, or rubs. RESPIRATORY: Breath sounds equal bilaterally. No accessory muscle use. GASTROINTESTINAL: Abdomen soft, non-tender, nondistended. MUSCULOSKELETAL: No cyanosis, or edema. Bandaged left hip. SKIN: Warm and dry. NEURO: No focal neurological deficitis. Hospital Course Mr. Xiong is an 81-year-old male. He was admitted secondary to infection of the left hip for revision and antibiotic spacer placement. She had originally had trauma and fracture of left hip in the recent past and have this repaired surgically. With antibiotics she has been doing well. He is now postop and also doing well but will need inpatient rehabilitation. A plan for long course of antibiotics is present. He is transfused 1 unit packed red blood cells for postop anemia. Medically stable for discharge to inpatient rehabilitation. Pt Condition on Discharge: Stable Discharge Disposition: Rehab Inpatient Discharge Time: > 30 minutes Discharge Instructions DIET: Follow Instructions for: Heart Healthy Diet Activities you can perform: Regular-No Restrictions Activities to Avoid: Driving Follow up Referrals: Infectious Disease - 1 Week Orthopedics - 1 Week Orthopedics - 3 Weeks with Rakesh Long MD PCP Follow-up - 1 Week New Medications: Docusate Sodium (Docusate Sodium) 100 Mg Cap 100 MG PO BID PRN for CONSTIPATION, #60 CAP 0 Refills Enoxaparin Inj (Lovenox Inj) 100 Mg/Ml Syr 90 MG SQ Q12H for Prevent Blood Clot, #14 INJECTION dc INR > 2 Oxycodone (Oxycodone) 5 Mg Tab 10 MG PO Q6HR PRN for PAIN SCALE 6 TO 10, #28 TAB Continued Medications: Ascorbic Acid (C-1000) 1,000 Mg Tablet 1000 MG PO BID for Nutritional Supplement Doxazosin (Doxazosin) 4 Mg Tab 4 MG PO BID for 30 Days, TAB 1 Refill Finasteride (Proscar) 5 Mg Tab 5 MG PO HS for Manage Prostate Problems for 30 Days, TAB 1 Refill Do not crush. Gabapentin (Neurontin) 300 Mg Cap 300 MG PO HS for Pain for 30 Days, CAP 1 Refill Lisinopril (Lisinopril) 20 Mg Tab 20 MG PO DAILY for 1 Day, TAB 0 Refills Methocarbamol (Robaxin) 750 Mg Tab 750 MG PO Q4H PRN for MUSCLE SPASM for 30 Days, TAB 0 Refills Multiple Vitamins W/ Minerals (Multi Vitamin and Mineral) 1 Tab Tab 1 TAB PO HS for 30 Days Nifedipine ER 24 HR (Nifedipine ER 24 HR) 30 Mg Tab 30 MG PO DAILY for Blood Pressure Management, #30 TAB 1 Refill Pravastatin (Pravastatin) 10 Mg Tab 10 MG PO HS for Cholesterol Management, #30 TAB 1 Refill Warfarin (Coumadin) 3 Mg Tab 3 MG PO HS for Prevent Blood Clot, #30 TAB 0 Refills Discontinued Medications: Hydrocodone-Acetaminophen (Hydrocodone-Acetaminophen) 5-325 mg Tab 1 TAB PO Q12HR PRN for PAIN SCALE 5 TO 10, #20 TAB 0 Refills Aravind Machuca MD Apr 14, 2017 14:32
[2017-04-30] MEDS ORDERED: HYDR-3583 PO (10:55)
[2017-04-30] MEDS ORDERED: MULT-142 PO (10:55)
[2017-04-30] MEDS ORDERED: ROBA750T PO (10:55)
[2017-04-30] MEDS ORDERED: NEUR300C PO (10:55)
[2017-04-30] MEDS ORDERED: LISI-519 PO (10:55)
[2017-04-30] MEDS ORDERED: CARD2TAB PO (10:55)
[2017-04-30] MEDS ORDERED: PRAV10TA PO (10:55)
[2017-04-30] MEDS ORDERED: VITA1000 PO (10:55)
[2017-04-30] MEDS ORDERED: POLY17S PO (10:55)
[2017-04-30] MEDS ORDERED: COUM5TAB PO (10:55)
[2017-04-30] MEDS ORDERED: PROS5TAB PO (10:55)
[2017-04-30] MEDS ORDERED: AMBI5TAB PO (10:55)
[2017-04-30] MEDS ORDERED: FERR325T20 PO (10:55)
[2017-04-30] MEDS ORDERED: CEFA2SOL IV (10:55)
[2017-04-30] MEDS ORDERED: NIFE30TA61 PO (10:55)
[2017-04-30] MEDS ORDERED: DOCU100C PO (10:55)
[2017-04-30] MEDS ORDERED: [UNRECOGNIZED DRUG - OTHER] (12:45)
[2017-04-30] MEDS ORDERED: COMMODE 3-IN-11 MIS (12:45)
[2017-06-05] MEDS ORDERED: HYDR-3583 PO (15:42)
[2017-06-10] MEDS ORDERED: HYDR-3583 PO (15:48)
== END 2017-04-14 21:06 | DRG 463 ==
LOC: NEPC 11:44 → NEDA 14:32 → N07A 18:34
PROVIDERS: ADMIT Hospitalist; ATTEND Hospitalist
PROC: 0S9B3ZX Drainage of Left Hip Joint, Percutaneous Approach, Diagnostic (ICD-10-PCS; 2017-04-05)
PROC: 30233N1 Transfusion of Nonautologous Red Blood Cells into Peripheral Vein, Percutaneous Approach (ICD-10-PCS; 2017-04-12)
PROC: 0SHB08Z Insertion of Spacer into Left Hip Joint, Open Approach (ICD-10-PCS; 2017-04-12)
PROC: 0SPB0JZ Removal of Synthetic Substitute from Left Hip Joint, Open Approach (ICD-10-PCS; principal; 2017-04-12 10:35)
DX: T84.52XA Infection and inflammatory reaction due to internal left hip prosthesis, initial encounter (principal); R65.20 Severe sepsis without septic shock; A41.01 Sepsis due to Methicillin susceptible Staphylococcus aureus; G93.41 Metabolic encephalopathy; E87.2 Acidosis; M00.052 Staphylococcal arthritis, left hip; I50.9 Heart failure, unspecified; I11.0 Hypertensive heart disease with heart failure; D62 Acute posthemorrhagic anemia; E87.1 Hypo-osmolality and hyponatremia; B95.61 Methicillin susceptible Staphylococcus aureus infection as the cause of diseases classified elsewhere; I69.351 Hemiplegia and hemiparesis following cerebral infarction affecting right dominant side; I69.259 Hemiplegia and hemiparesis following other nontraumatic intracranial hemorrhage affecting unspecified side; N40.0 Benign prostatic hyperplasia without lower urinary tract symptoms; E78.5 Hyperlipidemia, unspecified; I48.2 Chronic atrial fibrillation; B00.1 Herpesviral vesicular dermatitis; I25.10 Atherosclerotic heart disease of native coronary artery without angina pectoris; K59.00 Constipation, unspecified; M10.072 Idiopathic gout, left ankle and foot; Y83.1 Surgical operation with implant of artificial internal device as the cause of abnormal reaction of the patient, or of later complication, without mention of misadventure at the time of the procedure; R70.0 Elevated erythrocyte sedimentation rate; Z79.01 Long term (current) use of anticoagulants; Z87.891 Personal history of nicotine dependence
CPT/HCPCS: 20610; 36430; 70450; 70551; 71010; 73501; 73502; 76937; 77002; 80048; 80053; 81001; 83605; 83735; 84155; 85014; 85018; 85025; 85027; 85610; 85652; 85730; 86140; 86403; 86850; 86900; 86901; 86920; 86927; 87015; 87040; 87070; 87077; 87102; 87116; 87147; 87176; 87186; 87205; 87206; 93005; 94150; 96374; 96375; C1776; J0131; J0690; J0692; J1644; J1650; J2250; J2270; J2370; J2405; J2543; J2710; J3010; J3260; J3370; J3430; J7030; J7050; J7120; P9016

== ENCOUNTER → 2017-06-17 | Outpatient (CLI) | payer MEDICARE ==
[~2017-06-17] MED LIST changes: +AMBI5TAB PO; +ASCO1TAB14 PO; +CARD2TAB PO; +CARD4TAB2 PO; +CEFA2SOL IV; -COUM3TAB PO; +COUM5TAB PO; +DOCU100C15 PO; +DOXA1TAB35 PO; -DOXA4TAB3 PO; +FERR325T20 PO; +FINA5TAB2 PO; +HYDR-3583 PO; +LISI-519 PO; -NIFE30TA61 PO; +NIFE60TA8 PO; +POLY17S PO; +VITA1000 PO; -VITA250T3 PO
[2017-06-17 13:11] LABS: INTERNATIONAL NORMALIZED RATIO 2.5 RATIO; PROTHROMBIN TIME - PATIENT 28.2 SEC (9.8-11.6)
[2017-06-17 13:25] LABS: BICARBONATE 26.8 MEQ/L (21.0-32.0); CREATININE 0.69 MG/DL (0.60-1.30)
[2017-06-17 14:13] LABS: BILIRUBIN, URINE NEG (NEG); BLOOD, URINE NEG (NEG); GLUCOSE,URINE NEG (NEG); HYALINE CAST, URINE 1 /lpf (RARE); KETONE, URINE NEG (NEG); MUCUS URINE FEW /lpf (OCC); NITRITE,URINE NEG (NEG); PH, URINE 6.5 (5.0-8.5); SQUAMOUS EPITHELIAL CELL URINE 1 /hpf (0-5); URINE COLOR YELLOW (YELLW/STRAW); URINE LEUKOCYTE ESTERASE NEG (NEG)
== END ==
LOC: CPRE 10:44
PROVIDERS: ATTEND Orthopaedic Surgery
DX: Z01.811 Encounter for preprocedural respiratory examination (principal); Z01.812 Encounter for preprocedural laboratory examination; M16.12 Unilateral primary osteoarthritis, left hip; Z79.01 Long term (current) use of anticoagulants
CPT/HCPCS: 36415; 80048; 81001; 85610

== ENCOUNTER → 2017-06-25 | Outpatient (CLI) | payer MEDICARE ==
[~2017-06-25] MED LIST changes: -CARD4TAB2 PO; +DOCU100C PO; -DOCU100C15 PO; -FINA5TAB2 PO; -NIFE60TA8 PO
[2017-06-25 10:42] LABS: PROTHROMBIN TIME - PATIENT 11.3 SEC (9.8-11.6)
== END ==
LOC: CPRE 09:52
PROVIDERS: ATTEND Orthopaedic Surgery
DX: Z01.812 Encounter for preprocedural laboratory examination (principal); Z79.01 Long term (current) use of anticoagulants; M16.12 Unilateral primary osteoarthritis, left hip
CPT/HCPCS: 36415; 85610

== ENCOUNTER 2017-06-26 06:34 | Inpatient (IN) | payer MEDICARE ==
--- NOTE | 2017-06-12 12:01 | MH ---
cc: NIA GARDUNO DATE OF ADMISSION: 06/26/2017 ADMITTING DIAGNOSIS History of septic left hip, status post total hip arthroplasty. 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 At that time he underwent a total hip arthroplasty which was completed in an uncomplicated manner for which the patient was noted to have tolerated his operative procedure well. He was initially mobilized under the guidance of physical therapy, being permitted weightbearing to tolerance about his left lower extremity. Follow-up examination of the surgical wound noted it to be intact healing favorably, no evidence of infection. The patient was subsequently transferred to a rehabilitation facility where he continued to progress with his postoperative recovery. Unfortunately during this interval of time he began to note generalized discomfort about the lateral aspect of his left hip, although his wound continued to appear to be healing in a favorable manner. He did subsequently undergo a fluoroscopic aspiration of his left hip with initial findings being without evidence of any identifiable organisms but a subsequent culture report indicated staph aureus. Further evaluation was completed with Dr. Ashley Resendiz for infectious disease input. The patient was felt to have findings that were consistent with a septic joint for which additional evaluation was completed by the undersigned physician. Based upon the patient's lingering discomfort and the findings of his aspiration, recommendation was made to proceed with a resection arthroplasty of his left hip followed by an extended course of antibiotic coverage. The patient was subsequently returned to the operating room on the 12 of April and at that time underwent a resection arthroplasty of his left hip with the insertion of a StageOne Select Hip cement spacer. Postoperatively the patient was transferred back to the [facility] during which time he was maintained on intravenous antibiotic coverage. Treatment continued for approximately six weeks during which time the patient's left hip bone was noted to heal in a favorable manner. Upon completion of a 6-week course of intravenous antibiotics, the patient conformed to almost a 2-week interval of time being off of antibiotics where after repeat laboratory studies were completed with his white blood count, sedimentation rate and C-reactive protein all being within normal limits. Based upon the current findings and the patient's desire to proceed with further disposition he has been scheduled for re-admission at this time in order that a stage II reimplantation be completed. PAST MEDICAL HISTORY His past medical history, hospitalizations and surgeries in addition to that described above have included: 1. Surgical repair of a gamekeeper's type thumb of his left upper extremity. 2. Right mehnaz-parotidectomy. 3. Lumbar laminectomy and fusion L5-S1. 4. Tonsillectomy. 5. Bilateral cataract excision with intraocular lens implants. 6. Colonoscopy. 7. Cystoscopy. 8. Medical management for history of a stroke. His current medical illnesses include: 1. Hypertension. 2. Atrial fibrillation. 3. Benign prostatic hypertrophy. MEDICATIONS 1. Doxazosin 4 mg a.m., 8 mg p.m. 2. Lisinopril 20 mg daily. 3. Nifedipine 30 mg daily. 4. Fish old daily. 5. Pravastatin 10 mg daily. 6. Coumadin 5 mg at bedtime. 7. Finasteride 5 mg at bedtime. 8. Multivitamin tablet. 9. Vitamin C twice daily. 10.Robaxin 750 mg p.r.n. 11.Gabapentin 100-300 mg p.r.n. ALLERGIES THE PATIENT INDICATES A DRUG ALLERGY TO TETRACYCLINE WHICH HAS BEEN ASSOCIATED WITH ERYTHEMA MULTIFORME. REVIEW OF SYSTEMS Wears glasses. No headache, seizure or syncope. No sinus congestion or epistaxis. Diminished auditory acuity for which hearing aids have been utilized in the past. No tinnitus. No bleeding gums or dysphagia. No cough, shortness of breath, upper respiratory infection, pneumonia or tuberculosis. No angina. Medically managed for atrial fibrillation and hypertension. Appetite good. Bowel movements regular. No hepatitis, gallbladder disease or ulcers. He has had a history of hemorrhoids. No urinary tract infection. Kidney stones with spontaneous passage. Benign prostatic hypertrophy. No fractures. No psychiatric illness. The remaining review of systems is unremarkable and noncontributory. FAMILY HISTORY 32 years, 69 years of age in good health. One son and two daughters described as being in good health. Family history is positive for diabetes, heart disease, lung disease and cancer of undetermined etiology. 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 Denies active use of tobacco for 30 years but had been a one pack per day user for at least 30 years in the past. Ethanol consumption on a very limited social basis. PHYSICAL EXAMINATION Height 6 feet, weight 185 pounds. GENERAL: An alert, oriented and responsive 81-year-old white male who sits quietly upon examination table with no apparent distress. HEAD, EYES, EARS, NOSE, AND THROAT: Pupils equal, round and reactive to light. Extraocular movements full. Sclera clear. External nares clear. External auditory canals clear. Dental intact. Mucous membranes pink and moist. Pharynx clear. NECK: Supple. Active range of motion with minimal discomfort at the extremes of mobility. Carotid pulse palpable bilaterally. Trachea midline. Thyroid without enlargement. LUNGS: Clear to auscultation and percussion. BACK: No CVA tenderness. No discomfort throughout the dorsolumbar spine. HEART: Regular rhythm. No murmur or gallop. ABDOMEN: Soft, nontender. Bowel sounds present. RECTAL: Per primary care physician. EXTREMITIES: Left Hip: An intact healed surgical wound along the posterolateral aspect of the left hip. No significant discoloration or drainage appreciated. There is limited mobility of the hip joint at the extremes of motion with mild discomfort associated. No sensation of crepitation or instability. Straight-leg raising is negative at 80 degrees. Jani sign is positive. Distal sensory intact. Antalgic gait. NEUROLOGIC: Cranial nerves II through XII grossly intact. IMPRESSION History of resection arthroplasty left hip for septic joint, status post total hip arthroplasty. PLAN Stage II reimplantation left hip. Possible reinsertion of a cement spacer should any evidence at the time of current surgery be consistent with residual infection of the hip joint. Once again the nature of the planned surgical procedure, the potential complications and risks associated, the expectations of surgery and the consent form have been thoroughly reviewed with the patient in the presence of his . Dr. Xiong has indicated his full understanding regarding all of the above and given consent to proceed with treatment as outlined. MD EBONI Perez/BT /11:21 AM /11:43 AM
[~2017-06-26] VITALS: Ht 182.9 cm; Wt 81.4 kg
[~2017-06-26 06:34] MED LIST changes: -DOCU100C PO; +DOCU100C15 PO; -DOXA1TAB35 PO; -HYDR-3516 PO; -LISI-515 PO
[2017-06-26] MEDS ORDERED: INSULIN HUMAN REGULAR 1,000 UNITS/10 ML VIAL SQ PRN (07:15)
[2017-06-26] MEDS ORDERED: METOPROLOL TARTRATE 25 MG TAB PO PRN (07:15)
[2017-06-26] MEDS ORDERED: CHLORHEXIDINE GLUCONATE 2 % 1 PACK (2 CLOTHS) TOPICAL PRN (07:15)
[2017-06-26] MEDS ORDERED: LACTATED RINGER'S 1000 ML IV PRN (07:15)
[2017-06-26] MEDS ORDERED: POVIDONE IODINE 5% (ANTISEPSIS KIT) 4 APPLICATIONS EACH NARE PRN (07:15)
[2017-06-26] MEDS ORDERED: SODIUM CHLORID 0.9% 500 ML IV PRN (07:15)
[2017-06-26] MEDS ORDERED: LISI-515 PO (08:31)
[2017-06-26] MEDS ORDERED: DOXA1TAB35 PO (08:31)
[2017-06-26 08:33] LABS: AUTOMATED NEUTROPHIL # 5.7 TH/MM3 (1.8-7.7); BASOPHIL % 0.6 % (0.0-2.0); EOSINOPHIL # 0.1 TH/MM3 (0-0.4); EOSINOPHIL % 1.9 % (0.0-4.0); HEMATOCRIT 40.5 % (39.0-51.0); HEMO FLAGS DIFF FINAL; LYMPH % 4.7 % (9.0-44.0); LYMPHOCYTE # 0.3 TH/MM3 (1.0-4.8); MEAN CORPUSCULAR HEMOGLOBIN 27.4 PG (27.0-34.0); MEAN CORPUSCULAR HGB CONC 33.1 % (32.0-36.0); MONO % 7.3 % (0.0-8.0); NEUT % 85.5 % (16.0-70.0); PLATELET COUNT 169 TH/MM3 (150-450); RED BLOOD COUNT 4.88 MIL/MM3 (4.50-5.90); RED CELL DISTRIBUTION WIDTH 16.2 % (11.6-17.2); WHITE BLOOD COUNT 6.6 TH/MM3 (4.0-11.0)
[2017-06-26] MEDS ORDERED: ceFAZolin INJ 1,000 MG VIAL ONE (11:14)
[2017-06-26] MEDS ORDERED: VANCOMYCIN HCL 1000 MG VIAL ONE (11:14)
[2017-06-26] MEDS ORDERED: ePHEDrine/NS 25 MG/5 ML SYR IV ONE ×2 (12:00)
[2017-06-26] MEDS ORDERED: LIDOCAINE HCL 1% PF 5 ML AMPULE OTHER ONE ×2 (12:00)
[2017-06-26] MEDS ORDERED: PHENYLEPHRINE HCL 10 MG/ML VIAL IV ONE ×2 (12:00)
[2017-06-26] MEDS ORDERED: PHENYLEPH/NS 1000 MCG/10 ML SYR IV ONE ×2 (12:00)
[2017-06-26] MEDS ORDERED: PROPOFOL 200 MG/20 ML AMP IV ONE ×2 (12:00)
[2017-06-26] MEDS ORDERED: MIDAZOLAM HCL 2 MG/2 ML VIAL IV ONE ×2 (12:00)
[2017-06-26] MEDS ORDERED: ONDANSETRON HCL 4 MG/2 ML VIAL IV PUSH ONE ×2 (12:00)
[2017-06-26] MEDS ORDERED: ROCURONIUM INJ 50 MG/5 ML SYRINGE IV PUSH ONE ×2 (12:00)
[2017-06-26] MEDS ORDERED: STERILE WATER FOR INJECTION 20 ML VIAL IV ONE ×2 (12:00)
[2017-06-26 12:47] LABS: HEMATOCRIT 31.8 % (39.0-51.0); REVIEW FLAG FINAL
[2017-06-26] MEDS ORDERED: DO NOT ADM ANY ANTICOAGULANT DRUGS PRN (13:40)
[2017-06-26] MEDS ORDERED: NALOXONE HCL 0.4 MG/ML AMP IV PUSH PRN (14:00)
[2017-06-26] MEDS ORDERED: Post-op Orders (for Pharmacy) MISC XX ONE (14:00)
[2017-06-26] MEDS ORDERED: ACETAMINOPHEN/HYDROcodone 325 MG/5 MG TAB PO PRN (14:00)
[2017-06-26] MEDS ORDERED: ZOLPIDEM TARTRATE 5 MG TAB PO PRN (14:00)
[2017-06-26] MEDS ORDERED: ONDANSETRON HCL 4 MG/2 ML VIAL IVP PRN (14:00)
[2017-06-26] MEDS ORDERED: ACETAMINOPHEN 325 MG TAB PO PRN (14:00)
[2017-06-26] MEDS ORDERED: *MEPERIDINE 25 MG INJ VIAL PERIprocedural Use ONLY ONE (14:36)
--- NOTE | 2017-06-26 14:56 | PD.CONS ---
HPI Service [facility] Consult Requested By Dr. 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 He has a history of left hip osteoarthritis underwent arthroplasty in February 2017. Postoperatively he developed discomfort secondary to MSSA septic joint status post aspiration. He underwent resection arthroplasty on 04/12/17 with insertion of a stage I select hip cement spacer and started on intravenous antibiotics. He was then discharged to [facility] and received extended course of intravenous Ancef for at least a six-weeks. He now returns to complete stage II reimplantation by Dr. Long who requested consultation to evaluate and manage multiple medical conditions. Patient has a history of hypertension controlled with lisinopril, CVA and atrial fibrillation on anticoagulation with Coumadin, hyperlipidemia on pravastatin and BPH on Cardura and finasteride. At this time, patient has no complaints. He is still lethargic after receiving general anesthesia. Case discussed with RAILROAD INSPECTOR. Anesthesia records reviewed and was hemodynamically stable received 2500 mL crystalloid and had 400 mL EBL. All other systems reviewed negative Review of Systems Except as stated in HPI: all other systems reviewed are Neg Past Family Social History Allergies: Coded Allergies: doxycycline (Unverified Allergy, Severe, Erythema Multiforme, 06/26/17) minocycline (Unverified Allergy, Severe, Erythema Multiforme, 06/26/17) tetracycline (Verified Allergy, Severe, 06/26/17) tigecycline (Unverified Allergy, Severe, Erythema Multiforme, 06/26/17) Past Medical History As previously mentioned Past Surgical History thumb surgery, parotid surgery, lumbar laminectomy and fusion, tonsillectomy, cataract surgery, colonoscopy, cystoscopy Reported Medications Hydrocodone-Acetaminophen 10-325 mg Tab 1-2 Tab PO EVERY OTHER DAY PRN Polyethylene Glycol 3350 Powder (Polyethylene Glycol) 17 Gram Pow 17 Gm PO DAILY 30 Days Ambien (Zolpidem Tartrate) 5 Mg Tab 5 Mg PO HS PRN Cardura (Doxazosin Mesylate) 2 Mg Tab 2 Mg PO BID Coumadin (Warfarin) 5 Mg Tab 5 Mg PO DAILY@1600 Ferosul (Ferrous Sulfate) 325 Mg (65 Mg Iron) Tablet 325 Mg PO DAILY Cefazolin Inj (Cefazolin Sodium/Dextrose) 2 Gm/50 Ml Bagp 2 Gm IV Q8H 26 Days Last day of IV abx is 05/26/17. Docusate Sodium 100 Mg Cap 100 Mg PO BID PRN Neurontin (Gabapentin) 300 Mg Cap 300 Mg PO HS Robaxin (Methocarbamol) 750 Mg Tab 750 Mg PO TID PRN Pravastatin 10 Mg Tab 10 Mg PO HS Multi Vitamin and Mineral (Multiple Vitamins W/ Minerals) 1 Tab Tab 1 Tab PO HS 30 Days Proscar (Finasteride) 5 Mg Tab 5 Mg PO HS 30 Days Do not crush. Reported Lisinopril 20 Mg Tab 20 Mg PO DAILY Doxazosin (Doxazosin Mesylate) 2 Mg Tab 2 Mg PO BID C-1000 (Ascorbic Acid) 1,000 Mg Tablet 1,000 Mg PO BID Family History Diabetes, heart disease Social History Ex-smoker. Occasional alcohol use Physical Exam Vital Signs Vital Signs Date Time Temp Pulse Resp B/P (MAP) Pulse Ox O2 Delivery O2 Flow Rate FiO2 06/26/17 08:32 98.5 83 20 142/83 (102) 97 Physical Exam GENERAL: This is a well-nourished, well-developed patient, in no apparent distress. SKIN: No rashes, ecchymoses or lesions. Cool and dry. HEAD: Atraumatic. Normocephalic. No temporal or scalp tenderness. EYES: Pupils equal round and reactive. Extraocular motions intact. No scleral icterus. No injection or drainage. ENT: Nose without bleeding, purulent drainage or septal hematoma. Throat without erythema, tonsillar hypertrophy or exudate. Uvula midline. Airway patent. NECK: Trachea midline. No JVD or lymphadenopathy. Supple, nontender, no meningeal signs. CARDIOVASCULAR: Regular rate and rhythm without murmurs, gallops, or rubs. RESPIRATORY: Clear to auscultation. Breath sounds equal bilaterally. No wheezes , rales, or rhonchi. GASTROINTESTINAL: Abdomen soft, non-tender, nondistended. No guarding. MUSCULOSKELETAL: Extremities without clubbing, cyanosis, or edema. NEUROLOGICAL: Lethargic but easily arousable. Cranial nerves II through XII intact. Normal speech. Laboratory Laboratory Tests Test 06/26/17 08:15 06/26/17 12:30 White Blood Count 6.6 Red Blood Count 4.88 Hemoglobin 13.4 10.7 Hematocrit 40.5 31.8 Mean Corpuscular Volume 83.0 Mean Corpuscular Hemoglobin 27.4 Mean Corpuscular Hemoglobin Concent 33.1 Red Cell Distribution Width 16.2 Platelet Count 169 Mean Platelet Volume 8.3 Neutrophils (%) (Auto) 85.5 Lymphocytes (%) (Auto) 4.7 Monocytes (%) (Auto) 7.3 Eosinophils (%) (Auto) 1.9 Basophils (%) (Auto) 0.6 Neutrophils # (Auto) 5.7 Lymphocytes # (Auto) 0.3 Monocytes # (Auto) 0.5 Eosinophils # (Auto) 0.1 Basophils # (Auto) 0.0 CBC Comment DIFF FINAL Differential Comment Date/Time Source Procedure Growth Status 06/26/17 12:03 Wound Hip Gram Stain - Final Resulted 06/26/17 12:03 Wound Hip Wound Culture Pending Resulted Result Diagram: 06/26/17 1230 Assessment and Plan Assessment and Plan 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 He now returns to complete stage II reimplantation by Dr. Long. Stable continue postoperative care with PT, wound care, pain management with Lortab and IV morphine and DVT prophylaxis with Coumadin. Infectious disease will be consulted to manage intravenous antibiotics. Check CBC to monitor for postoperative anemia Hypertension controlled with lisinopril, will continue and monitor BP. Check BMP CVA and atrial fibrillation on anticoagulation with Coumadin. Monitor INR Hyperlipidemia on pravastatin, will continue BPH on Cardura and finasteride. We will resume Discussed Condition With Patient Brenden Aceves MD Jun 26, 2017 14:56
[2017-06-26] MEDS ORDERED: SODIUM CHLORIDE 0.9% FLUSH 10 ML FLUSH IV FLUSH PRN (15:30)
[2017-06-26] MEDS: DEXT 5%-NACL 0.45% 1000 ML INJ 1,000 ML IV SCH (16:00)
[2017-06-26] MEDS ORDERED: METHOCARBAMOL 500 MG TAB PO PRN (16:00)
--- NOTE | 2017-06-26 16:08 | RADRPT ---
EXAM DATE/TIME: 06/26/2017 15:21 [place] COMPARISON: HIP LEFT AP ONLY WO AP PELVIS, April 12, 2017, 14:24. INDICATIONS : Post op left hip surgery. MEDICAL HISTORY : None. SURGICAL HISTORY : Total hip replacement, left. ENCOUNTER: Initial ACUITY: 1 day PAIN SCORE: Non-responsive. LOCATION: Left Hip. FINDINGS: The patient is status post a total hip arthroplasty with a bipolar prosthesis. Prosthesis is well-sea shar. Alignment is anatomic. A fracture is not appreciated. CONCLUSION: Anatomic alignment. Karlos Seymour MD FACR Board Certified Radiologist. This report was verified electronically.
[2017-06-26 16:12] VITALS: BP 86/53; PULSE 93; RESP 18; TEMP 96.4; O2SAT 100
[2017-06-26] MEDS: MORPHINE SULFATE 30 MG/30 ML PCA IV SCH (16:59)
[2017-06-26] MEDS ORDERED: BALANCED SALT SOLN OPHT IRRIG 15 ML BTL ONE (18:35)
[2017-06-26] MEDS ORDERED: TETRACAINE 0.5% OPTH SOLN 4 ML BTL ONE (18:36)
[2017-06-26] MEDS ORDERED: ERYTHROMYCIN 0.5% OPTH OINT 1 GM TUBO ONE (18:37)
[2017-06-26] MEDS ORDERED: TETRACAINE 0.5% OPTH SOLN 4 ML BTL LEFT EYE ONE (19:00)
[2017-06-26] MEDS ORDERED: BALANCED SALT SOLN OPHT IRRIG 15 ML BTL LEFT EYE ONE (19:00)
[2017-06-26 20:52] VITALS: BP 108/57; PULSE 88; RESP 20; TEMP 97.5; O2SAT 100
[2017-06-26] MEDS: DOXAZOSIN MESYLATE 2 MG TAB PO SCH (21:00)
[2017-06-26] MEDS: SODIUM CHLORIDE 0.9% FLUSH 10 ML FLUSH IV FLUSH SCH (21:00)
[2017-06-26] MEDS: FINASTERIDE 5 MG TAB PO SCH (21:00)
[2017-06-26] MEDS: PRAVASTATIN SOD 10 MG TAB PO SCH (21:13)
[2017-06-26] MEDS: GABAPENTIN 300 MG CAP PO SCH (21:13)
[2017-06-26] MEDS: WARFARIN SOD 5 MG TAB PO SCH (21:13)
[2017-06-26] MEDS: MULTIVITAMINS/MINERALS THERAPEUTIC TAB PO SCH (21:14)
[2017-06-26] MEDS: ASCORBIC ACID 500 MG TAB PO SCH (21:14)
[2017-06-26] MEDS: PCA - TOTAL MG MORPHINE DELIVERED PER SHIFT SCH (22:35)
[2017-06-27] VITALS (8 sets, daily range): BP systolic 93–117; BP diastolic 56–70; PULSE 77–99; RESP 16–20; TEMP 97.5–99.4; O2SAT 95–100
[2017-06-27] MEDS: DEXT 5%-NACL 0.45% 1000 ML INJ 1,000 ML IV SCH ×4 (00:08→20:51)
[2017-06-27] MEDS: PCA - TOTAL MG MORPHINE DELIVERED PER SHIFT SCH ×3 (05:45→21:22)
[2017-06-27] MEDS ORDERED: HYDR-3516 PO (06:21)
--- NOTE | 2017-06-27 06:23 | HHI.FF ---
Face to Face Verification Diagnosis: (1) Infection of left prosthetic hip joint Physical Therapy Gait training Hip: Total hip, Protocol: Left, Abduction pillow while in bed, Progress to weight bearing Left LE Weight Bearing: WB as tolerated Left LE Range of Motion: Active ROM Nursing Dressing Changes: Daily dressing change I have seen patient Artie Xiong on 06/27/17. My clinical findings support the need for the requested home health care services because: Limited ability to care for self High risk of falls I certify that my clinical findings support that this patient is homebound because: Post-op weakness Unsteady gait/balance Unsafe to leave home unassisted Rakesh Long MD Jun 27, 2017 06:23
[2017-06-27 06:58] LABS: INTERNATIONAL NORMALIZED RATIO 1.1 RATIO; PROTHROMBIN TIME - PATIENT 11.7 SEC (9.8-11.6)
[2017-06-27 06:59] LABS: HEMATOCRIT 30.8 % (39.0-51.0); REVIEW FLAG FINAL
[2017-06-27] MEDS: MORPHINE SULFATE 30 MG/30 ML PCA IV SCH (07:22)
[2017-06-27 07:26] LABS: BICARBONATE 26.4 MEQ/L (21.0-32.0); MAGNESIUM 1.8 MG/DL (1.5-2.5); POTASSIUM 3.9 MEQ/L (3.5-5.1)
[2017-06-27] MEDS: ASCORBIC ACID 500 MG TAB PO SCH ×2 (07:42→20:45)
[2017-06-27] MEDS: DOXAZOSIN MESYLATE 2 MG TAB PO SCH ×2 (07:42→20:45)
[2017-06-27] MEDS: POLYETHYLENE GLYCOL 17 GM PKG PO SCH (07:43)
[2017-06-27] MEDS: FERROUS SULFATE 325 MG (65 MG ELEMENTAL IRON) TAB PO SCH (07:43)
--- NOTE | 2017-06-27 08:30 | MP ---
cc: NIA LONG M.D. DATE OF SURGERY: 06/26/2017 PREOPERATIVE DIAGNOSIS Septic left hip status post total hip arthroplasty. POSTOPERATIVE DIAGNOSIS Septic left hip status post total hip arthroplasty. PROCEDURE Reimplantation left hip with second stage total hip arthroplasty. SURGEON Nia Long MD ANESTHESIA General endotracheal. INDICATIONS An 81-year-old white male who had been admitted to [facility] in February of this year for history of osteoarthritis of his left hip with associated pain and gait disturbance. He underwent a total hip arthroplasty which was completed in an uncomplicated manner. The patient noted to have tolerated his operative procedure well. He was mobilized under the guidance of physical therapy being permitted weightbearing to tolerance about his left lower extremity. Follow up examination of the surgical wound noted to be intact, healing favorably, no evidence of infection. The patient was transferred to rehabilitation facility to continue his progress during his postoperative recovery. Unfortunately, during this interval of time he began to note generalized discomfort about the lateral aspect of his left hip, although his wound continued to appear to heal in a favorable manner. He did subsequently undergo a fluoroscopic aspiration of his left hip with initial findings being without evidence of any identifiable organisms but a subsequent culture report indicated staph aureus. Further evaluation was completed with Dr. Ashley Resendiz for infectious disease consultation. The patient was felt to have findings that were consistent with a septic joint for which additional evaluation was completed by the undersigned physician. Based upon the patient's lingering discomfort and findings of his aspiration recommendation was made to proceed with resection arthroplasty of his left hip followed by extended course of antibiotic coverage. The patient was returned to the operating room on April 12 and at that time he underwent resection arthroplasty of his left hip with insertion of a stage I select hip cement spacer. Postoperatively the patient was returned to the [facility] where he was maintained on intravenous antibiotic coverage at the supervision of Dr. Resendiz. Treatment continued for approximately 6 weeks, during which time the patient's left hip was noted to heal in a favorable manner. Upon completion of a 6-week course of intravenous antibiotics the patient conformed to a 2-week interval of time being off of antibiotics, where after repeat laboratory studies were completed with his white blood count, sedimentation rate and C-reactive protein all being within normal limits. Based upon these current findings and the patient's desire to proceed with further disposition he was re-admitted to the hospital at this time in order that a stage II reimplantation be completed. FORMAT Following induction of satisfactory general anesthesia by endotracheal intubation as completed per the Department of Anesthesia, the patient was positioned upon the operating table in a right lateral decubitus fashion. The left hip and lower extremity proper were isolated with a U drape, thereafter being prepped with Betadine solution and draped into a sterile field in the routine manner. Prior to initiation of the actual procedure the standard time-out protocol was completed, all parameters were appropriately addressed and confirmed by operating room personnel. A previous surgical scar about the left hip was utilized as an anatomical landmark for initiating a new skin incision which was developed to underlying subcutaneous tissue with hemostasis maintained by electrocautery. By deepening dissection through underlying subcutaneous tissue the underlying gluteus musculature was identified. As deepening dissection was accomplished an obvious seroma was encountered with fluid obtained for culture analysis by the lab. Progressive dissection was completed thereafter which facilitated exposure of the posterior capsular region. A limited capsulotomy was accomplished and the underlying cement spacer was readily identified. The head of the component was dislocated from the confines of the acetabulum where after a thorough resection and debridement of fibrotic tissue was accomplished. The head component was dissociated from the stem component. Additional resection of fibrotic tissue facilitated removal of the femoral stem. Aggressive debridement was accomplished thereafter with curetting of the acetabular region as well as the femoral canal. During this interval of time the laboratory report returned gram stain result which indicated no evidence of white blood cells or bacterial contamination. Reaming of the acetabulum was thereafter accomplished from 54-59 mm. The 60 trial shell was positioned and determined to be satisfactory. Trial component being removed attention was redirected to the proximal femur. Additional debridement and pulsating antibiotic irrigation was accomplished and sequential rasping and broaching completed from 12 through 14 mm. The 14 mm stem was determined to be a favorable fit. The trial component was thereafter removed. Attention was returned to the acetabulum where repeat pulsating antibiotic irrigation was accomplished and thereafter a 60 mm ring lock acetabular shell was firmly seated in approximately 45 degrees inclination to the horizontal and slight anteversion. A single 6.5 25-mm cancellous screw was inserted superiorly to augment fixation. The permanent high wall acetabular liner was affixed to the acetabular shell. Attention was redirected to the proximal femur. The canal was irrigated and dried and the trial 14 mm femoral broach repositioned and a trial reduction followed utilizing a 36-mm trial head with -6, -3 and standard neck length adapters trialed, the standard sizing was determined to be the most favorable fit. The hip was flexed to 90 degrees and internally rotated to 45 degrees with stability maintained. An open dislocation completed the trial femoral components being removed, the canal was irrigated and dried and thereafter the permanent 14 mm standard femoral stem Echo Biometric configuration was firmly seated to which a 36 mm ceramic head with standard neck length attachment was affixed to the femoral component. An open reduction completed and repeat range of motion again noted stability as previously described. Final irrigation was accomplished with hemostasis maintained. The posterior capsule region was repaired with 0 Vicryl suture. The remaining portion of the wound was closed in layers in the routine manner, skin margins being reapproximated with a running subcuticular 3-0 Vicryl suture over which Steri-Strips were applied. Steri-Strips were applied over which a dry sterile dressing was placed. The patient was repositioned into a supine orientation where an abduction splint was attached. Anesthesia was discontinued. He was thereafter transferred to a hospital bed and returned to the recovery room in satisfactory condition having tolerated his operative procedure well. Estimated blood loss was approximately 400 ccs as determined per anesthesia. All implants were of the [employer] laundry laborer. MD EBONI Perez/TLL /1:42 PM /8:06 AM
[2017-06-27] MEDS ORDERED: LISINOPRIL 20 MG TAB PO SCH (09:00)
[2017-06-27] MEDS: SODIUM CHLORIDE 0.9% FLUSH 10 ML FLUSH IV FLUSH SCH ×2 (09:00→20:44)
--- NOTE | 2017-06-27 10:50 | HHI.PR ---
Subjective Remarks Follow-up for hypotension Blood pressure on the low side, no dizziness or lightheadedness but allegedly had orthostatic this morning. No hematochezia or melena. Pain is moderately controlled, still on the LAB AID pump. Objective Vitals Vital Signs Date Time Temp Pulse Resp B/P (MAP) Pulse Ox O2 Delivery O2 Flow Rate FiO2 06/27/17 08:00 97.8 89 16 116/70 (85) 99 06/27/17 07:22 18 06/27/17 05:45 18 06/27/17 05:43 97.5 99 20 105/56 (72) 95 06/27/17 00:43 98.2 86 20 93/60 (71) 100 06/26/17 22:35 18 06/26/17 20:52 97.5 88 20 108/57 (74) 100 06/26/17 16:59 15 06/26/17 16:12 96.4 93 18 86/53 (64) 100 06/26/17 15:55 97.1 79 15 106/59 (75) 100 Nasal Cannula 3 06/26/17 15:30 77 15 102/55 (71) 100 Nasal Cannula 3 06/26/17 15:00 75 15 98/54 (69) 100 Nasal Cannula 3 06/26/17 14:30 83 17 107/61 (76) 100 Nasal Cannula 3 06/26/17 14:15 89 15 106/67 (80) 100 Nasal Cannula 3 06/26/17 14:00 77 15 92/56 (68) 98 Nasal Cannula 3 06/26/17 13:45 75 14 95/51 (66) 100 Nasal Cannula 3 06/26/17 13:39 96.7 74 15 95/53 (67) 100 Nasal Cannula 3 I/O 06/26/17 06/26/17 06/26/17 06/27/17 06/27/17 06/27/17 07:00 15:00 23:00 07:00 15:00 23:00 Intake Total 2500 ml 280 ml 720 ml Output Total 400 ml 0 ml 1900 ml Balance 2100 ml 280 ml -1180 ml Intake Oral 720 ml IV Total 280 ml Other 2500 ml Output Urine Total 0 ml 1900 ml Estimated Blood Loss 400 ml # Bowel Movements 0 Result Diagram: 11/2/17 0607 11/2/17 0607 Objective Remarks Not in distress, well-nourished, looks stated age PERRL, pink conjunctiva without injection, anicteric Normal rate and regular rhythm, no murmurs gallops or rubs appreciated. Clear to auscultation and symmetric bilaterally, normal respiratory effort. Normal bowel sounds, soft, non-tender, nondistended, no guarding. Extremities without clubbing, cyanosis, or edema. Left hip tenderness present. 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 He now returns to complete stage II reimplantation by Dr. Long. Left hip MSSA septic joint-status post stage II hip arthroplasty - Stable continue postoperative care with PT, wound care, pain management with Lortab and IV morphine and DVT prophylaxis with Coumadin. Infectious disease will be consulted to manage intravenous antibiotics. Postoperative anemia-recheck CBC Hypertension-blood pressure lower today, asymptomatic but mildly orthostatic, decreased lisinopril with holding parameters, check orthostatics in the morning , start normal saline. Recheck BMP tomorrow. CVA and atrial fibrillation on anticoagulation with Coumadin. Monitor INR Hyperlipidemia on pravastatin BPH on Cardura and finasteride. Discharge Planning Discharged once cleared by orthopedics and if blood pressure stable Aileen Melgar MD Jun 27, 2017 10:50
[2017-06-27] MEDS: SODIUM CHLOR 0.9% 1000 ML INJ 1,000 ML IV SCH ×2 (11:15→20:46)
--- NOTE | 2017-06-27 13:24 | MB ---
cc: MIKE DIAZ MD DATE OF CONSULTATION: 06/27/[address] Long. REASON FOR CONSULTATION Recommendation of antibiotics. Patient is status post left hip re-do surgery. HISTORY OF PRESENT ILLNESS This is a 81-year-old white male who was a history of left hip infection due to MSSA. The patient was treated in the hospital back in March of 2017. He had hip aspiration culture with MSSA and elevated sedimentation rate and he was treated with IV cefazolin for 6 weeks. This was followed by 2 weeks of antibiotic free. And then he was brought in for replacement of the hip. The surgery was performed yesterday. The patient is in no acute distress. Culture was taken at the time of surgery and the result is pending. This consultation is for additional antibiotic recommendation. The patient is afebrile. White blood cell count is normal. Gram stain from the wound specimen yesterday showed no organisms and no white cells. PAST MEDICAL HISTORY 1. Osteoarthritis. 2. Septic left hip arthroplasty in February. 3. Parotid gland surgery. 4. Lumbar laminectomy and fusion. 5. Cataract surgery. 6. Tonsillectomy. ALLERGIES MINOCYCLINE, DOXYCYCLINE, TETRACYCLINE, TIGECYCLINE. MEDICATION 1. Cephazolin given perioperatively. 2. Coumadin. 3. Robaxin. 4. Morphine sulfate p.r.n. 5. [place] 5 p.r.n. SOCIAL HISTORY The patient is . No tobacco, no alcohol. No illicit drugs. FAMILY HISTORY Noncontributory. REVIEW OF SYSTEMS Review of systems negative for 10-point review except for mild pain in the left hip. PHYSICAL EXAMINATION GENERAL: This is a pleasant well-developed male, who is in no acute distress. He is awake and alert and oriented. VITAL SIGNS: Include temperature of 97.8, BP 116/70, respirations 16, heart rate 89. HEENT: Head is atraumatic. Extraocular movements grossly intact, pupils reactive to light. No icterus. Oropharynx no visible lesions. NECK: Supple. No adenopathy. LUNGS: Clear to auscultation. HEART: Regular, S1 and S2, no murmurs. ABDOMEN: Bowel sounds present, soft, no tenderness. EXTREMITIES: Left hip has mild edema. The surgical dressing has some spots of bloody drainage. The extremities otherwise have no clubbing or cyanosis or edema. SKIN: No rash. NEURO: Nonfocal. PSYCHE: The patient is calm and cooperative. LABORATORY DATA WBC 6.6, platelets 169, creatinine 0.71, estimated GFR 106. IMPRESSION Recent left hip infection due to MSSA. The patient admitted for reimplantation left hip arthroplasty. New culture from the wound bed is pending. RECOMMENDATIONS From an infectious disease standpoint, we need to just make sure that the new wound is negative on culture and that will be 72 hours to have the final culture result. If the culture is negative I do not see any need for additional antibiotics to be given. The culture needs to be followed and if it is positive then I can intervene to make recommendations for antibiotics. If it is negative, no antibiotic is necessary. Thank you for this consultation. Mike Diaz MD FD/TLRamsey /12:41 PM /1:04 PM
[2017-06-27] MEDS ORDERED: WARFARIN SOD 1 MG TAB PO ONE (16:00)
[2017-06-27] MEDS: WARFARIN SOD 5 MG TAB PO SCH (17:10)
[2017-06-27] MEDS: PRAVASTATIN SOD 10 MG TAB PO SCH (20:44)
[2017-06-27] MEDS: GABAPENTIN 300 MG CAP PO SCH (20:44)
[2017-06-27] MEDS: FINASTERIDE 5 MG TAB PO SCH (20:45)
[2017-06-27] MEDS: MULTIVITAMINS/MINERALS THERAPEUTIC TAB PO SCH (20:45)
[2017-06-27] MEDS: DOCUSATE SODIUM 100 MG CAP PO PRN (20:45)
[2017-06-28] VITALS (8 sets, daily range): BP systolic 111–134; BP diastolic 55–80; PULSE 74–93; RESP 15–18; TEMP 96.5–99.2; O2SAT 94–99
[2017-06-28] MEDS: PCA - TOTAL MG MORPHINE DELIVERED PER SHIFT SCH ×2 (05:12→13:46)
[2017-06-28 07:15] LABS: AUTOMATED NEUTROPHIL # 2.9 TH/MM3 (1.8-7.7); BASOPHIL % 0.4 % (0.0-2.0); EOSINOPHIL # 0.1 TH/MM3 (0-0.4); EOSINOPHIL % 2.2 % (0.0-4.0); HEMATOCRIT 26.8 % (39.0-51.0); HEMO FLAGS DIFF FINAL; LYMPH % 13.6 % (9.0-44.0); LYMPHOCYTE # 0.6 TH/MM3 (1.0-4.8); MEAN CELL VOLUME 83.6 FL (80.0-100.0); MEAN CORPUSCULAR HEMOGLOBIN 27.9 PG (27.0-34.0); MEAN CORPUSCULAR HGB CONC 33.4 % (32.0-36.0); MONO % 12.5 % (0.0-8.0); NEUT % 71.3 % (16.0-70.0); PLATELET COUNT 111 TH/MM3 (150-450); RED CELL DISTRIBUTION WIDTH 16.1 % (11.6-17.2); WHITE BLOOD COUNT 4.1 TH/MM3 (4.0-11.0)
[2017-06-28 07:17] LABS: INTERNATIONAL NORMALIZED RATIO 1.2 RATIO; PROTHROMBIN TIME - PATIENT 13.5 SEC (9.8-11.6)
[2017-06-28 07:36] LABS: BICARBONATE 27.1 MEQ/L (21.0-32.0); POTASSIUM 3.7 MEQ/L (3.5-5.1)
[2017-06-28] MEDS: DEXT 5%-NACL 0.45% 1000 ML INJ 1,000 ML IV SCH ×2 (08:00→15:57)
[2017-06-28] MEDS: POLYETHYLENE GLYCOL 17 GM PKG PO SCH (08:53)
[2017-06-28] MEDS: LISINOPRIL 10 MG TAB PO SCH (08:53)
[2017-06-28] MEDS: DOXAZOSIN MESYLATE 2 MG TAB PO SCH ×2 (08:53→21:20)
[2017-06-28] MEDS: FERROUS SULFATE 325 MG (65 MG ELEMENTAL IRON) TAB PO SCH (08:53)
[2017-06-28] MEDS: SODIUM CHLORIDE 0.9% FLUSH 10 ML FLUSH IV FLUSH SCH ×2 (08:54→21:21)
[2017-06-28] MEDS: ASCORBIC ACID 500 MG TAB PO SCH ×2 (08:54→21:20)
[2017-06-28] MEDS: SODIUM CHLOR 0.9% 1000 ML INJ 1,000 ML IV SCH (08:55)
[2017-06-28] MEDS ORDERED: INFLUENZA VIRUS VACCINE (QUADRIVALENT) 0.5 ML SYR IM ONE (10:00)
[2017-06-28] MEDS ORDERED: MISCELLANEOUS PHARMACY INFORMATION XX ONE (14:00)
[2017-06-28] MEDS: ACETAMINOPHEN/HYDROcodone 325 MG/5 MG TAB PO PRN ×2 (15:56→21:20)
[2017-06-28] MEDS: WARFARIN SOD 5 MG TAB PO SCH (15:56)
[2017-06-28] MEDS ORDERED: WARFARIN SOD 1 MG TAB PO ONE (16:00)
--- NOTE | 2017-06-28 16:10 | HHI.PR ---
Subjective Remarks Follow-up for left hip arthroplasty Overnight events, no fever, no chills. Objective Vitals Vital Signs Date Time Temp Pulse Resp B/P (MAP) Pulse Ox O2 Delivery O2 Flow Rate FiO2 06/28/17 13:46 17 06/28/17 12:00 96.5 93 18 117/69 (85) 94 06/28/17 09:42 96 06/28/17 08:00 97.1 75 18 119/68 (85) 99 06/28/17 05:12 18 06/28/17 05:00 97.9 75 16 125/65 (85) 97 118/67 (84) 116/72 (87) 06/28/17 00:00 98.2 90 15 121/58 (79) 99 06/27/17 21:22 18 06/27/17 20:00 98.9 77 16 110/56 (74) 99 06/27/17 19:46 96 I/O 06/27/17 06/27/17 06/27/17 06/28/17 06/28/17 06/28/17 07:00 15:00 23:00 07:00 15:00 23:00 Intake Total 720 ml 2310 ml 240 ml 300 ml Output Total 1900 ml 1450 ml 550 ml Balance -1180 ml 860 ml -310 ml 300 ml Intake Oral 720 ml 1320 ml 240 ml 300 ml IV Total 990 ml Output Urine Total 1900 ml 1450 ml 550 ml # Voids 2 # Bowel Movements 0 0 0 Result Diagram: 06/28/17 0645 06/28/17 0645 Objective Remarks Not in distress, well-nourished, looks stated age PERRL, pink conjunctiva without injection, anicteric Normal rate and regular rhythm, no murmurs gallops or rubs appreciated. Clear to auscultation and symmetric bilaterally, normal respiratory effort. Normal bowel sounds, soft, non-tender, nondistended, no guarding. Extremities without clubbing, cyanosis, or edema. Left hip tenderness present. 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 He now returns to complete stage II reimplantation by Dr. Long. Left hip MSSA septic joint-status post stage II hip arthroplasty - Stable continue postoperative care with PT, wound care, pain management with Lortab and IV morphine and DVT prophylaxis with Coumadin. Infectious disease consulted , no antibiotics if cultures remain negative per infectious disease. Still on [employer] pump per orthopedics. Postoperative anemia- hemoglobin still stable, monitor every other day. No obvious source. Hypertension-blood pressure better, orthostatics negative. Stop normal saline. BMP normal. CVA and atrial fibrillation on anticoagulation with Coumadin. Monitor INR Hyperlipidemia on pravastatin BPH on Cardura and finasteride. DVT prophylaxis: Coumadin, per orthopedics. Discharge Planning Discharged once cleared by orthopedics and if blood pressure stable Aileen Melgar MD Jun 28, 2017 16:10
[2017-06-28] MEDS: GABAPENTIN 300 MG CAP PO SCH (21:20)
[2017-06-28] MEDS: MULTIVITAMINS/MINERALS THERAPEUTIC TAB PO SCH (21:20)
[2017-06-28] MEDS: DOCUSATE SODIUM 100 MG CAP PO PRN (21:20)
[2017-06-28] MEDS: PRAVASTATIN SOD 10 MG TAB PO SCH (21:21)
[2017-06-28] MEDS: FINASTERIDE 5 MG TAB PO SCH (21:21)
[2017-06-29] MEDS ORDERED: MAGNESIUM HYDROXIDE SUSP 30 ML CUP PO PRN (01:45)
[2017-06-29] MEDS ORDERED: LACTULOSE SYRUP 20 GM/30 ML CUP PO PRN (01:45)
[2017-06-29] MEDS ORDERED: BISACODYL 10 MG SUPP RECTAL PRN (01:45)
[2017-06-29] MEDS: ACETAMINOPHEN/HYDROcodone 325 MG/5 MG TAB PO PRN ×2 (05:29→14:02)
[2017-06-29 07:17] LABS: INTERNATIONAL NORMALIZED RATIO 1.4 RATIO; PROTHROMBIN TIME - PATIENT 15.2 SEC (9.8-11.6)
[2017-06-29 08:00] VITALS: BP 131/79; PULSE 66; RESP 18; TEMP 97.3; O2SAT 98
[2017-06-29] MEDS: ASCORBIC ACID 500 MG TAB PO SCH (08:09)
[2017-06-29] MEDS: DOXAZOSIN MESYLATE 2 MG TAB PO SCH (08:09)
[2017-06-29] MEDS: FERROUS SULFATE 325 MG (65 MG ELEMENTAL IRON) TAB PO SCH (08:10)
[2017-06-29] MEDS: POLYETHYLENE GLYCOL 17 GM PKG PO SCH (08:10)
[2017-06-29] MEDS: LISINOPRIL 10 MG TAB PO SCH (08:10)
[2017-06-29] MEDS: SODIUM CHLORIDE 0.9% FLUSH 10 ML FLUSH IV FLUSH SCH (08:10)
[2017-06-29 11:26] VITALS: O2SAT 94
[2017-06-29 12:00] VITALS: BP 136/77; PULSE 68; RESP 19; TEMP 98; O2SAT 98
[2017-06-29] MEDS ORDERED: WARFARIN SOD 1 MG TAB PO ONE (16:00)
--- NOTE | 2017-07-02 08:07 | MD ---
cc: NIA GARDUNO MD,CHRISTEN Ponce M.D. ADMISSION DATE: 06/26/2017 DISCHARGE DATE: 06/29/2017 ADMITTING DIAGNOSIS Septic left hip status post left total hip arthroplasty. DISCHARGE DIAGNOSIS Septic left hip status post left total hip arthroplasty. HISTORY 81-year-old white male admitted to [facility] in February of this year for a history of osteoarthritis of his left hip with associated pain and gait disturbance for which he underwent a total hip arthroplasty which was completed in an uncomplicated manner. The patient noted to tolerate his operative procedure well. He was initially mobilized under the guidance of physical therapy being permitted weightbearing to tolerance about his left lower extremity. Follow up examination of his surgical wound noted to be intact healing favorably with no evidence of infection. The patient was transferred to a rehabilitation facility where he continued to progress with his postoperative recovery. Unfortunately during this interval of time, he began to note generalized discomfort about the lateral aspect of his left hip, although his wound continued to appear to heal in a favorable manner. He subsequently underwent a fluoroscopic aspiration of his left hip with initial findings being without evidence of any identifiable organisms, but a subsequent culture report indicated staph aureus. Further evaluation was completed with Dr. Ashley Resendiz for infectious disease input. The patient was felt to have findings that were consistent with a septic joint for which additional evaluation was completed by the undersigned physician. Based upon the patient's lingering discomfort and findings of his aspiration, recommendation was made to proceed with a resection arthroplasty of his left hip followed by an extended course of antibiotic coverage. The patient was returned to the operating room on the 12 of April and at that time underwent a resection arthroplasty of his left hip with insertion of a stage I select hip cement spacer. Postoperatively, the patient was transferred to the [facility] where he was continuing to be maintained on intravenous antibiotic coverage under the supervision of Dr. Resendiz. His treatment continued for approximately six weeks during which time the left hip was noted to heal in a favorable manner. Upon completion of the 6-week course of antibiotic treatment, the patient conformed a 2-week interval of time being off of antibiotics where after repeat laboratory studies were completed including a white blood count, sedimentation rate, C-reactive protein with all parameters being were within normal limits. Based upon these current findings and the patient's desire to proceed with further treatment, He was scheduled to be readmitted to the hospital in order that a stage II reimplantation be completed. PHYSICAL EXAM At that time of admission noted an intact healing surgical wound along the posterolateral aspect of the left hip without any appreciable discoloration or drainage. There was limited mobility of the hip joint at the extremes of motion with mild discomfort. No sensation or crepitation or instability. Straight-leg raising negative at 80 degrees. Jani sign positive. Distal sensory intact. Antalgic gait. HOSPITAL COURSE Following admission to the hospital, the patient was taken to the operating room on June 2017 and on that date underwent removal of his previous cement spacer followed by reimplantation of new total hip components. Gram stain analysis at the time of surgery was negative for any white blood cells or bacterial contamination. The patient was noted to have tolerated his operative procedure well with his postoperative course stable thereafter. Hemoglobin/hematocrit assessment postoperatively was 10.7 and 31.8 respectively. The patient was mobilized under the guidance of physical therapy being permitted weightbearing to tolerance about the left lower extremity. He did experience some bloody drainage from his wound site following surgery which was treated with daily dressing changes. He was mobilized under the guidance of physical therapy. dietary services director was consulted to assist with discharge planning with recommendations being made for the patient to be transferred back to the [facility] for continued mobilization. The patient was in agreement to this recommendation and pending medical clearance, he was scheduled for transfer on the third postoperative day at which time he was making steady progress with regards to his rehabilitation program. He was scheduled to be seen in office followup in approximately four weeks. His condition at the time of discharge stable, prognosis favorable. MEDICATIONS Discharge medications included: 1. Hydrocodone 525/3.25 #60. 2. He will continue to take Coumadin as taken preoperatively. 3. Additional antibiotic management per Dr. Resendiz. MD EBONI Perez/PACO /6:42 AM /9:02 AM
[2017-07-04] MEDS ORDERED: CARD4TAB2 PO (09:24)
[2017-07-04] MEDS ORDERED: NEUR300C PO (09:24)
[2017-07-04] MEDS ORDERED: LISI-515 PO (09:24)
[2017-07-04] MEDS ORDERED: AMBI5TAB PO (09:24)
[2017-07-04] MEDS ORDERED: NIFE60TA8 PO (09:24)
[2017-07-04] MEDS ORDERED: PRAV10TA PO (09:24)
[2017-07-04] MEDS ORDERED: HYDR-3516 PO (09:24)
[2017-07-04] MEDS ORDERED: FERR325T20 PO (09:24)
[2017-07-04] MEDS ORDERED: ASCO1TAB14 PO (09:24)
[2017-07-04] MEDS ORDERED: COUM5TAB PO (09:24)
[2017-07-04] MEDS ORDERED: FINA5TAB2 PO (09:24)
== END 2017-06-29 15:12 | DRG 468 ==
LOC: HSDI 06:34 → N06A 16:08
PROVIDERS: ADMIT Orthopaedic Surgery; ATTEND Orthopaedic Surgery
PROC: 0SPB08Z Removal of Spacer from Left Hip Joint, Open Approach (ICD-10-PCS; 2017-06-26)
PROC: 0SRB03A Replacement of Left Hip Joint with Ceramic Synthetic Substitute, Uncemented, Open Approach (ICD-10-PCS; principal; 2017-06-26 10:30)
DX: Z47.32 Aftercare following explantation of hip joint prosthesis (principal); I95.9 Hypotension, unspecified; I48.91 Unspecified atrial fibrillation; D64.9 Anemia, unspecified; I10 Essential (primary) hypertension; E78.5 Hyperlipidemia, unspecified; N40.0 Benign prostatic hyperplasia without lower urinary tract symptoms; Z79.01 Long term (current) use of anticoagulants; Z86.73 Personal history of transient ischemic attack (TIA), and cerebral infarction without residual deficits; Z87.891 Personal history of nicotine dependence; Z88.1 Allergy status to other antibiotic agents
CPT/HCPCS: 73501; 80048; 83735; 85014; 85018; 85025; 85610; 86850; 86900; 86901; 86920; 87015; 87070; 87102; 87116; 87205; 87206; 90471; 90686; 94150; C1776; G0008; J0690; J2175; J2250; J2270; J2370; J2405; J3010; J3370; J7030; J7120; Q2038